=== PATIENT | male | born 1935 | race Caucasian/White ===

== ENCOUNTER 2016-08-22 08:48 | Emergency (ER) | payer MEDICARE ==
[2016-08-22 09:40] VITALS: BP 130/57
--- NOTE | 2016-08-22 09:59 | UC ---
Complaint Male HPI - HPI Summary HPI Summary: HX OF BPH ON AVODART OUT OF HIS MEDICATION REQUESTING A REFILL SINCE HIS PCP IS [place]OWN NO OTHER CONCERNS OR COMPLAINTS TODAY - History of Current Complaint Chief Complaint: UCMedRefill Stated Complaint: MED REFILL Time Seen by Provider: 08/22/16 08:56 Hx Obtained From: Patient Onset/Duration: Gradual Onset, Lasting Weeks - FOR YEARS, Still Present Timing: Constant Severity Initially: Moderate Severity Currently: Moderate Location: None Aggravating Factor(s): Voiding Alleviating Factor(s): Meds Associated Signs And Symptoms: Negative: Diaphoresis, Back Pain, Fever, Hematuria, Dysuria, Constipation, Blood in Stool, Rectal Pain, Appetite, Nausea , Vomiting(# Of Episodes =), Penile Swelling, Penile Discharge - Allergies/Home Medications Allergies/Adverse Reactions: Allergies Allergy/AdvReac Type Severity Reaction Status Date / Time Adhesive Tape Allergy Rash Verified 08/22/16 09:11 Insulin Glargine Allergy Swelling Verified 08/22/16 09:11 [From Lantus] citris fruid Allergy Rash Uncoded 08/22/16 09:11 Home Medications: Home Medications Allopurinol TAB* [Zyloprim 300 MG TAB*] 300 mg PO DAILY 08/22/16 [History Confirmed 08/22/16] Ascorbic Acid TAB* [Vitamin C TAB*] 500 mg PO BID 08/22/16 [History Confirmed 08/22/16] Diclofenac 1.3% PATCH (NF) [Flector 1.3% PATCH (NF)] 1 patch TOPICAL DAILY 08/22 [History Confirmed 08/22/16] Digestive Enzymes [Papaya Enzyme] 1 - 2 tab PO TID 08/22/16 [History Confirmed 08/22/16] Dofetilide CAP* [Tikosyn CAP*] 500 mcg PO BID 08/22/16 [History Confirmed ] Exenatide(NF) [Byetta (NF)] 10 mcg SUBCUT BEDTIME 08/22/16 [History Confirmed ] Furosemide TAB* [Lasix TAB*] 40 mg PO DAILY 08/22/16 [History Confirmed 08/22/16 ] Indomethacin CAP* [Indocin CAP*] 10 mg PO TID 08/22/16 [History Confirmed ] Insulin Aspart [Novolog Flexpen] 8 unit SC TID 08/22/16 [History Confirmed 08/22] Insulin Detemir (NF) [Levemir (NF)] 10 unit SUBCUT DAILY 08/22/16 [History Confirmed 08/22/16] Metoprolol Tartrate TAB* [Lopressor TAB*] 25 mg PO BID 08/22/16 [History Confirmed 08/22/16] Naproxen Sodium [Naproxen Sodium 500 MG TAB] 500 mg PO BID 08/22/16 [History Confirmed 08/22/16] Pravastatin (NF) [Pravachol (NF)] 20 mg PO DAILY 08/22/16 [History Confirmed ] Tamsulosin CAP* [Flomax CAP*] 0.4 mg PO DAILY 08/22/16 [History Confirmed ] Testosterone Cypionate 200 mg IM WEEKLY 08/22/16 [History Confirmed 08/22/16] oxyCODONE TAB* [Roxycodone TAB 5 mg*] 5 mg PO Q8H PRN 08/22/16 [History Confirmed 08/22/16] oxyCODONE/Acetamin 5/325 MG* [Percocet 5/325 TAB*] 1 tab PO Q4H PRN 08/22/16 [ History Confirmed 08/22/16] PMH/Surg Hx/FS Hx/Imm Hx Endocrine History Of: Reports: Diabetes, Thyroid Disease Cardiovascular History Of: Reports: Cardiac Disorders - afib, Hypertension Respiratory History Of: Reports: Asthma - Surgical History Surgical History: Yes Surgery Procedure, Year, and Place: c6, 7,3,4. L3,4. bunionectomy. colon resection - Family History Known Family History: Positive: Diabetes - Social History Alcohol Use: None Substance Use Type: Prescribed Smoking Status (MU): Never Smoked Tobacco Review of Systems Constitutional: Negative Skin: Negative Eyes: Negative ENT: Negative Respiratory: Negative All Other Systems Reviewed And Are Negative: Yes Physical Exam Triage Information Reviewed: Yes Appearance: Well-Appearing, No Pain Distress, Well-Nourished Vital Signs: Initial Vital Signs Temp 98 F 08/22/16 09:29 Pulse 72 08/22/16 09:29 Resp 20 08/22/16 09:29 BP 130/57 08/22/16 09:29 Pulse Ox 97 08/22/16 09:29 Vital Signs Reviewed: Yes Eye Exam: Normal Eyes: Positive: Conjunctiva Clear ENT: Positive: Normal ENT inspection, Hearing grossly normal, Pharynx normal Neck: Positive: Supple Respiratory Exam: Normal Respiratory: Positive: Chest non-tender, Lungs clear, Normal breath sounds Cardiovascular: Positive: RRR, No Murmur, Pulses Normal Abdominal Exam: Normal Neurological Exam: Normal Skin Exam: Normal Complaint Male Course/Dx - Differential Dx/Diagnosis Provider Diagnoses: BPH Discharge - Discharge Plan Condition: Stable Disposition: HOME Prescriptions: Dutasteride [Avodart] 0.5 mg PO DAILY WITH MEAL #30 cap Dutasteride (NF) [Avodart (NF)] 0.5 mg PO DAILY #30 Patient Education Materials: Benign Prostatic Hypertrophy (ED) Referrals: Oseas Peace MD [Primary Care Provider] - 2 Weeks
== END 2016-08-22 10:15 | disposition home or self-care (01) ==
LOC: UCCORT 08:48
DX: N40.0 Benign prostatic hyperplasia without lower urinary tract symptoms (principal); Z76.0 Encounter for issue of repeat prescription; E11.9 Type 2 diabetes mellitus without complications; Z79.4 Long term (current) use of insulin; E07.9 Disorder of thyroid, unspecified; I48.91 Unspecified atrial fibrillation; I10 Essential (primary) hypertension; J45.909 Unspecified asthma, uncomplicated
CPT/HCPCS: 99202; G0463

== ENCOUNTER → 2018-01-15 11:13 | Emergency (ER) | payer MEDICARE ==
[~2018-01-15 11:13] MED LIST: Dexamethasone TAB* 6 MG PO ONE; Lidocaine PATCH 5%* 1 PATCH TRANSDERM ONE; Lidocaine PATCH 5%* 1 PATCH TRANSDERM SCH; Lidocaine Patch REMOVE* 1 NOTE MISC PATCH OFF ONE; NS 0.9% 1000 ML* 1,000 ML IV ONE
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
[2018-01-15 15:15] LABS: ABS Basophils 0 10^3/ul (0-0.2); ABS Eosinophils 0 10^3/ul (0-0.6); ABS Monocytes 0.1 10^3/ul (0-0.8); ABS Neutrophils 4.4 10^3/ul (1.5-7.7); ABS Nucleated RBC 0 10^3/ul; Eosinophil % 0.1 % (0-6); Hematocrit 48 % (42-52); Hemoglobin 15.6 g/dl (14.0-18.0); Lymphocyte % 18.5 % (25-47); Mean Corpuscular HGB Conc 33 g/dl (31-36); Mean Corpuscular Hemoglobin 27 pg (27-31); Mean Corpuscular Volume 82 fL (80-94); Mean Platelet Volume 8.2 um3 (7.4-10.4); Nucleated Red Blood Cells % 0.1; Platelet Count 149 10^3/ul (150-450); Red Blood Count 5.79 10^6/ul (4.00-5.40); Red Cell Distribution Width 20 % (10.5-15); White Blood Count 5.5 10^3/ul (3.5-10.8)
[2018-01-15 15:54] LABS: EGFR Non-African American 66.5 (>60)
--- NOTE | 2018-01-15 16:45 | RAD ---
Indication: Epidural collection, low back pain and history of L4-L5 fusion Sagittal T1, T2, STIR, axial T1 and T2-weighted images of the lumbar spine were obtained. Vertebral bodies appear normal in height. Normal bone marrow signal is noted. The vertebral bodies appear normal in height. Normal bone marrow signal is noted. At L5-S1 disc desiccation is noted. Minimal broad-based protrusion flattens the thecal sac. There appears to be a far left lateral disc broad-based protrusion with left facet hypertrophy which slightly narrows the left foramen at this level. The right foramen is also slightly narrowed although the lesser degree. At the L5 level there is a collection which appears to be extradural and posterior to the thecal sac causing anterior compression of the thecal sac. This measures approximately 1.5 cm x 1.4 cm x 0.7 cm. This is bright on T1-weighted images and slightly decreased in signal on T2-weighted images. This is consistent with an epidural hematoma. No definite spinal stenosis is noted presently. At L4-L5 spondylitic ridge flattens the thecal sac. Facet arthropathy is noted. No foraminal stenosis is noted. At L3-L4 spondylitic ridge flattens the thecal sac. No foraminal stenosis is noted. At L2-L3 spondylitic ridge flattens the thecal sac. No central or foraminal stenosis is noted. There appears to be a multiloculated arachnoid cyst which extends into the posterior vertebral body of L1-L2 measuring approximately 1.9 x 1.5 cm. At T12-L1 no disc protrusion is noted. Degenerative disc disease is noted. IMPRESSION: There is an epidural collection posterior to the thecal sac measuring 1.5 cm in length x 1.4 cm in width x 0.7 cm AP. Multilevel degenerative disc disease is noted. Likely arachnoid cyst is noted at the L1-L2 vertebra.
[2018-01-15 18:09] LABS: Urine Appearance Clear; Urine Blood Negative (Negative); Urine Color Yellow; Urine Ketones Negative (Negative); Urine Protein Negative (Negative); Urine Specific Gravity 1.015 (1.010-1.030); Urine Urobilinogen Negative (Negative)
[2018-01-15 18:54] VITALS: BP 135/88
== END | disposition home or self-care (01) ==
LOC: ED 11:13
DX: I62.1 Nontraumatic extradural hemorrhage (principal); E11.9 Type 2 diabetes mellitus without complications; I48.91 Unspecified atrial fibrillation; I10 Essential (primary) hypertension; Z87.891 Personal history of nicotine dependence
CPT/HCPCS: 36415; 72148; 80053; 81003; 83605; 83735; 84439; 84443; 85025; 86140; 93005; 96360; 99284; A9270-GY

== ENCOUNTER 2018-02-06 09:47 | Emergency (ER) | payer MEDICARE ==
--- OUTSIDE RECORDS SUMMARY | 2018-02-06 11:03 | XMS REPORT ---
:1935 External Reference #:[id number] Author Organization [facility] Address [address] [place] [address] Phone [phone] Care Team Providers Name Role Phone Kang Jeffers MD Primary Care Physician Unavailable Payers Type Date Identification Numbers Payment Provider Subscriber Medicare Primary Policy Number: [id number] Medicare Pete John PayID: [id number] [address] [place] [address] [facility] Part B Policy Number: [id number] [facility] Pete John PayID: [id number] [address] [place] [address] Problems Date Description Provider Status Onset: 12/17/2017 Spinal epidural hematoma Kang Jeffers M.D.,FACP Active Note: post injection Onset: 12/17/2017 Paroxysmal atrial fibrillation Kang Jeffers M.D., FACP Active Onset: 12/17/2017 Type 2 diabetes mellitus Kang Jeffers M.D.,FACP Active Onset: 12/17/2017 Carotid artery stenosis Kang Jeffers M.D.,FACP Active Note: bilat <50% Onset: 12/17/2017 Hypothyroidism Kang Jeffers M.D.,FACP Active Onset: 12/17/2017 Gout Kang Jeffers M.D.,FACP Active Onset: 01/23/2018 Insomnia Kang Jeffers M.D.,FACP Active Family History Date Family Member(s) Problem(s) Comments Father Stroke Father due to Stroke () Father 84 Mother due to Unknown Causes () Mother 73 First Son 40 First Daughter 38 Siblings 2 First Brother 86 Second Brother 79 Maternal Grandfather due to Unknown Causes () Maternal Grandfather 74 Maternal Grandmother due to Pneumonia () Maternal Grandmother 96 Social History Type Date Description Comments Marital Status Lives With 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 Cigarette Use Former Cigarette Smoker ETOH Use Denies alcohol use Smoking Patient is a former smoker Recreational Drug Use Denies Drug Use Exercise Type/Frequency 12/17/2017 Exercises rarely Allergies, Adverse Reactions, Alerts Date Description Reaction Status Severity Comments 12/17/2017 [place] Urticaria active Mild 12/17/2017 Iodine active Severe hypothryroidsim 01/15/2018 Lantus active Medications Medication Date Status Form Strength Qnty SIG Indications Ordering Provider Novolog Flexpen 01/23 Active Solution 100Unit/M 15ml 5-10 units SC Pen-Injec L pre-meal tid, Panfilo Jeffers, t sliding scale M.D.,FACP Alprazolam 01/23 Active Tablets 0.5mg 20tab take 1/2-1 s tablet by Panfilo Jeffers, mouth in M.D.,FACP evening as needed Metoprolol 01/23 Active Tablets 100mg 90tab take 1 tablet Kang Succinate ER 24HR s by mouth once Panfilo Jeffers, a day M.D.,FACP Metoprolol 01/23 Active Tablets 25mg 90tab 1 by mouth Kang Succinate ER 24HR s every day Panfilo Jeffers, with 100 mg M.D.,FACP tab Crestor 12/17 Active Tablets 5mg 45tab take 2 s tablet by Panfilo Jeffers, mouth every M.D.,FACP evening Aspir-81 12/17 Active Tablets 81mg 30tab [address] jacobo every day Panfilo Jeffers M.D.,FACP Flector 12/17 Active Patches 1.3% 10uni apply 1 patch ts to the skin Panfilo Jeffers, two times M.D.,FACP daily as needed Oxycodone HCL 12/17 Active Tablets 5mg 90tab 1 tab by s mouth every 6 JamiShey Jeffers, hours as M.D.,FACP needed pain Tikosyn Active Capsules 500mcg 1 by mouth Unknown /0000 twice a day Synthroid Active Tablets 88mcg 1 by mouth Unknown /0000 every day with 75 mcg Synthroid Active Tablets 75mcg 1 by mouth Unknown /0000 every day with 88 mcg Vitamin B12 Active Tablets 1000mcg 1 by mouth Unknown /0000 ER every day Vitamin D3 Ultra Active Capsules 5000Unit 1 by mouth Unknown Strength /0000 every day x 3 months Zyloprim Active Tablets 300mg one tab daily Unknown Vitamin E Active Capsules 400Unit 1 by mouth Unknown / every day Fish Oil Active Capsules 500mg 180ca 1 by mouth Kang ps twice a day Panfilo Jeffers M.D.,FACP Trulicity Active Solution 0.75mg/0. inject 0.75mg Unknown Pen-Injec 5ML once a week t Vitamin B1 Active Tablets 100mg 1 by mouth Unknown every day Testosterone Active Solution 100mg/ml 1 milliliters Unknown Cypionate /0000 intramuscular q2 weeks code f Diphenoxylate Active Tablets 2.5-0.025 Unknown Hydrochloride/At /0000 mg ropine Sulfate Cyclobenzaprine Active Tablets 5mg take one Unknown HCL /0000 tablet by mouth every 8 hours prn. (pt states he takes 4-5x qd) Dexpak 10 Day 12/17 Hx TBPK 1.5mg pt reports he /2017 (35) is not Panfilo Jeffers, - following Vito,FACP 01/15 Metoprolol Hx Tablets 100mg 1 by mouth Unknown Succinate ER /0000 ER 24HR every day - 01/15 Dexpak 10 Day Hx TBPK 1.5mg pt reports he Unknown /0000 (35) is not - following 12/17 Novolog Hx Solution 100Unit/M 11-12 units Unknown /0000 L times per day - prn 01/15 Metoprolol Hx Tablets 125mg take 1 tablet Unknown Tartrate /0000 by mouth - twice a day 01/23 Medications Administered in Office Medication Date Status Form Strength Qnty SIG Indications Ordering Provider Celestone 3 mg Administered Injection Martinez M and 3mg 018 MD Rojas Celestone 3 mg Administered Injection Martinez M and 3mg 018 MD Rojas Immunizations CPT Code Status Date Vaccine Lot # [id number] Given 12/18/2017 Pneumococcal Conjugate Vaccine 13 Valent For Intramuscular Use 96820 Given 12/17/2017 Influenza Virus Vaccine, Quadrivalent, Split, [id number] Preservative Free Vital Signs Date Vital Result Comment 01/23/2018 Height 67.0 inches 5'7" Weight 222.00 lb Heart Rate 96 /min BP Systolic Sitting 128 mmHg BP Diastolic Sitting 70 mmHg Body Temperature 97.6 F O2 % BldC Oximetry 94 % BMI (Body Mass Index) 34.8 kg/m2 01/15/2018 Height 67.0 inches 5'7" Weight 220.00 lb BP Systolic 122 mmHg BP Diastolic 70 mmHg Pain Level 10 BMI (Body Mass Index) 34.5 kg/m2 12/17/2017 Height 66.25 inches 5'6.25" Weight 209.00 lb Heart Rate 83 /min BP Systolic Sitting 120 mmHg BP Diastolic Sitting 82 mmHg Body Temperature 97.1 F O2 % BldC Oximetry 96 % BMI (Body Mass Index) 33.5 kg/m2 Results Test Date Test Result H/L Range Note Laboratory test finding 01/23/2018 Hemoglobin A1c 7.5 High 5-7 Lipid Profile (Trig/Chol/HDL) 01/15/2018 Triglycerides 218 mg/dL 1 Cholesterol 166 mg/dL 2 HDL Cholesterol 32.3 mg/dL 3 LDL Cholesterol 90 mg/dL 4 Laboratory test finding 01/15/2018 TSH (Thyroid Stim Horm) 1.53 mcIU/mL 0.34-5.60 Comp Metabolic Panel 01/15/2018 Sodium 138 mmol/L 135-145 Potassium 4.4 mmol/L 3.5-5.0 Chloride 101 mmol/L 101-111 Co2 Carbon Dioxide 31 mmol/L 22-32 Anion Gap 6 mmol/L 2-11 Glucose 164 mg/dL High 70-100 Blood Urea Nitrogen 13 mg/dL 6-24 Creatinine 1.03 mg/dL 0.67-1.17 BUN/Creatinine Ratio 12.6 8-20 Calcium 9.3 mg/dL 8.6-10.3 Total Protein 6.2 g/dL Low 6.4-8.9 Albumin 3.7 g/dL 3.2-5.2 Globulin 2.5 g/dL 2-4 Albumin/Globulin Ratio 1.5 1-3 Total Bilirubin 0.70 mg/dL 0.2-1.0 Alkaline Phosphatase 66 U/L 34-104 Alt 13 U/L 7-52 Ast 18 U/L 13-39 Egfr Non- 69.5 >60 Egfr 84.1 >60 5 Laboratory test finding 01/15/2018 Uric Acid 4.7 mg/dL 4.4-7.6 1 Desirable: <150 Borderline High: 150-199 High: 200-499 Very High: >500 2 Desirable: <200 Borderline High: 200-239 High: >239 3 Low: <40 Desirable: 40-60 High: >60 4 Desirable: <100 Near Optimal: 100-129 Borderline High: 130-159 High: 160-189 Very High: >189 5 Because ethnic data is not always readily available, this report includes an eGFR for both -Americans and non- Americans. The National Kidney Disease Education Program (NKDEP) does not endorse the use of the MDRD equation for patients that are not between the ages of 18 and 70, are , have extremes of body size, muscle mass, or nutritional status, or are non- or non-. According to the National Kidney Foundation, irrespective of diagnosis, the stage of the disease is based on the level of kidney function: Stage Description GFR(mL/min/1.73 m(2)) 1 Kidney damage with normal or decreased GFR 90 2 Kidney damage with mild decrease in GFR 60-89 3 Moderate decrease in GFR 30-59 4 Severe decrease in GFR 15-29 5 Kidney failure <15 (or dialysis) Procedures Date CPT Code Description Status 01/15/2018 64465 Inject/Drain Joint/Bursa Major W/O US Completed 12/04/2017 40097 ECHO Transthorasic Realtime 2D W Doppler & Color Flow Completed Hosp Encounters Type Date Location Provider CPT E/M Dx Office Visit 12/17/2017 [facility] Kang Jeffers, 250[address] S06.4x0D 12:00p [facility] [place] Max Padron,FACP Z86.73 E78.5 Z23 Office Visit 12/05/2017 7:[facility]a [facility] [address] G45.9 I10 I48.91 E78.5 Office Visit 12/05/2017 12:51p [facility] [address] R29.810 Hospitalists G45.9 E11.65 Z79.4 Office Visit 12/04/2017 7:00a [facility] [address] G45.9 I10 I48.91 E78.5 Z86.73 Office Visit 12/03/2017 12:50p [facility] [place], [address] G45.9 Assoc,pc Hospitalists MMarcy Z79.4 E11.65 Z86.73 Plan of Care Future Appointment(s):02/26/2018 2:20 pm - Kang Jeffers M.D.,FACP at [facility] [address]02/06/2018 10:00 am - Sheldon Soto LCSW at [facility] - [address]01/23/2018 - Kang Jeffers M.D.,FACPS06.4x0S Epidural hemorrhage without loss of consciousness, sequelaComments:Discussed MRI results. Follow up with Dr. Marvin as planned.E11.65 Type 2 diabetes mellitus with hyperglycemiaComments:You are meeting goal for blood sugar control. Continue current medications as prescribed. A yearlynutrition visit is available to all diabetics. You are on a moderate-potency statin to prevent new or recurrent heart disease, which is common in diabetics.Goals:Goal Hemoglobin A1c is less than 7.0% in ages 18-74 Goal Hemoglobin A1c is between 7.0% and 8.0% in age over 75 Goal Blood pressure is less than 130/85. Cholesterol should be lowered by a high or moderate-dose statin.E78.5 Hyperlipidemia, unspecifiedComments:Your goal LDL is <130. You are meeting this goal. Discussed diet, avoiding trans fats, reducingsaturated fats.Continue statin medication, call me if muscle weakness or pain occurs.Goals :Exercising 30 minutes 5 times a week will help raise HDL (good cholesterol) and lower LDL (bad cholesterol.)E03.9 Hypothyroidism, unspecifiedComments: Thyroid symptoms and blood tests show that current dose of synthroid is appropriate. Continue this dose, take medication on an empty stomach.G47.00 Insomnia, unspecifiedComments:Follow up with Sheldon Soto as discussed. Begin taking Alprazolam 0.5 MG 1/2-1 tab as needed.Referral:Sheldon Soto, PROGRAM CLERK, Clinical/ Social KoxwstF49.0 Paroxysmal atrial fibrillation
--- OUTSIDE RECORDS SUMMARY | 2018-02-06 11:03 | XMS REPORT ---
:1935 External Reference #:[id number] Author Organization [facility] Address [address] [address] Phone [phone] Care Team Providers Name Role Phone Kang Jeffers MD Primary Care Physician Unavailable Payers Type Date Identification Numbers Payment Provider Subscriber Medicare Primary Policy Number: [id number] Medicare Pete John PayID: [id number] [address] [place] [address] [facility] Part B Policy Number: [id number] [facility] Pete John PayID: [id number] [address] [place] [address] Problems Date Description Provider Status Onset: 12/17/2017 Spinal epidural hematoma Kang Jeffers M.D.,FACP Active Note: post injection Onset: 12/17/2017 Paroxysmal atrial fibrillation Kang Jeffers M.D., FACP Active Onset: 12/17/2017 Type 2 diabetes mellitus Kang Jeffers M.D.,FACP Active Onset: 12/17/2017 Carotid artery stenosis Kang Jeffers M.D.,FACP Active Note: bilat <50% Onset: 12/17/2017 Hypothyroidism Kang Jeffers M.D.,FACP Active Onset: 12/17/2017 Gout Kang Jeffers M.D.,FACAdelina Active Family History Date Family Member(s) Problem(s) [...] Date Description Reaction Status Severity Comments 12/17/2017 [place] Urticaria active Mild 12/17/2017 Iodine active Severe hypothryroidsim 01/15/2018 Lantus active Medications Medication Date Status Form Strength Qnty SIG Indications Ordering Provider Crestor 12/17 Active Tablets 5mg 90tab take 04/03-04/01 s tablet by Panfilo Jeffers, mouth every M.D.,FACP evening Aspir-81 12/17 Active Tablets 81mg 30tab [address] jacobo every day Panfilo Jeffers M.D.,FACP Flector 12/17 Active Patches 1.3% 10uni apply 1 patch ts to the skin Panfilo Jeffers, two times M.D.,FACP daily as needed Oxycodone HCL 12/17 Active Tablets 5mg 90tab 1 tab by mouth s every 6 hours Panfilo Jeffers, as needed pain M.D.,FACP Tikosyn Active Capsules 500mcg 1 by mouth twice a day Synthroid Active Tablets 88mcg 1 by mouth every day Synthroid Active Tablets 75mcg 1 by mouth every day Vitamin B12 Active Tablets 1000mcg 1 by mouth ER every day Vitamin D3 Active Capsules 5000Unit 1 by mouth Unknown Ultra every day x 3 months Zyloprim Active Tablets 300mg one tab daily Vitamin E Active Capsules 400Unit 1 by mouth every day Fish Oil Active Capsules 500mg 180ca 1 by mouth ps twice a day Panfilo Jeffers M.D.,FACP Trulicity Active Solution 0.75mg/0. inject 0.75mg Pen-Injec 5ML once a week t Vitamin B1 Active Tablets 100mg 1 by mouth Unknown /0000 every day Testosterone Active Solution 100mg/ml 1 milliliters Unknown Cypionate /0000 intramuscular q2 weeks code f Diphenoxylate Active Tablets 2.5-0.025 Unknown Hydrochloride/A /0000 mg tropine Sulfate Metoprolol Active Tablets 125mg take 1 tablet Unknown Tartrate /0000 by mouth twice a day Dexpak 10 Day 12/17 Hx TBPK 1.5mg pt reports he Kang (35) is not Panfilo Jeffers, - following M.D.,FACP 01/15 Metoprolol Hx Tablets 100mg 1 by mouth Unknown Succinate ER /0000 ER 24HR every day - 01/15 Dexpak 10 Day Hx TBPK 1.5mg pt reports he Unknown /0000 (35) is not - following 12/17 Novolog Hx Solution 100Unit/M 11-12 units Unknown /0000 L times per day - prn 01/15 Medications Administered in Office Medication Date Status Form Strength Qnty SIG Indications Ordering Provider Celestone 3 mg Administered Injection Martinez M and 3mg 018 MD Rojas Celestone 3 mg Administered Injection Martinez M and 3mg 018 MD Rojas Immunizations CPT Code Status Date Vaccine Lot # [id number] Given 12/18/2017 Pneumococcal Conjugate Vaccine 13 Valent For Intramuscular Use 24797 Given 12/17/2017 Influenza Virus Vaccine, Quadrivalent, Split, [id number] Preservative Free Vital Signs Date Vital Result Comment 01/15/2018 Height 67.0 inches 5'7" Weight 220.00 [...] BMI (Body Mass Index) 33.5 kg/m2 Results Description No Information Procedures Date CPT Code Description Status 01/15/2018 93051 Inject/Drain Joint/Bursa Major W/O US Completed 12/04/2017 29165 ECHO Transthorasic Realtime 2D W Doppler & Color Flow Completed Hosp Encounters Type Date Location Provider CPT E/M Dx Office Visit 12/17/2017 [facility] Kang Jeffers, 58[address] S06.4x0D 12:00p [facility] [place] Max Padron,FACP Z86.73 E78.5 Z23 Office Visit 12/05/2017 7:00a [facility] [address] G45.9 I10 I48.91 E78.5 Office Visit 12/05/2017 12:51p [facility] [place] [address] R29.810 Hospitalists G45.9 E11.65 Z79.4 Office Visit 12/04/2017 7:00a [facility] [address] G45.9 I10 I48.91 E78.5 Z86.73 Office Visit 12/03/2017 12[facility] [address] G45.9 Assoc,pc Hospitalrober Padron Z79.4 E11.65 Z86.73 Plan of Care Future Appointment(s):01/23/2018 2:00 pm - Kang Jeffers M.D.,FACP at [facility] [address]01/15/2018 - Martinez Xie, MD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 osteoarthritis of kneeNew Xrays:Knee 3 Views BilateralFollow up:Follow up: As needed
--- OUTSIDE RECORDS SUMMARY | 2018-02-06 11:03 | XMS REPORT ---
:1935 External Reference #:[id number] Author Organization [facility] Address [address] [address] Phone [phone] Care Team Providers Name Role Phone Chris Mercer MD Care Team Information Special Procedures Technologist Unavailable Payers Type Date Identification Numbers Payment Provider Subscriber Medicare Primary Policy Number: [id number] Medicare Juve John Group Name: [facility] [address] PayID: [id number] [place] [address] Problems Description No Information Social History Type Date Description Comments Smoking Patient has never smoked Allergies, Adverse Reactions, Alerts Date Description Reaction Status Severity Comments 01/07/2018 NKDA active Medications Description No Information Vital Signs Date Vital Result Comment 01/07/2018 Body Temperature 97.4 F Weight 221.00 lb Heart Rate 96 /min BP Systolic 122 mmHg L Arm, Sitting BP Diastolic 80 mmHg L Arm, Sitting O2 % BldC Oximetry 68 % Results Test Date Test Result H/L Range Note Laboratory test finding 01/07/2018 Esr-FCMG <pending> CRP (C-Reactive) <pending> Laboratory test finding 01/07/2018 Sed Rate - Esr 12 mm/hr <20 Procedures Description No Information Plan of Care 01/07/2018 - Chris Mercer V, MDM46.26 Osteomyelitis of vertebra, lumbar regionNew Xrays:MRI,Spinal Canal,Lumbar, W/&W/0 ConMRI,Spinal Canal,Lumbar, W/&W/0 ConAllComments:Patient voices understanding of meds and disease processes
[2018-02-06] MEDS ORDERED: Dexamethasone IV* 4 MG/ML 1 ML (4 MG) IM ONE (11:28)
[2018-02-06] MEDS ORDERED: traMADol TAB* 50 MG PO ONE (11:33)
--- NOTE | 2018-02-06 11:46 | ED ---
Back Pain - HPI Summary HPI Summary: Patient is a 83 y/o M w/ c/o "pain all over". CP/SOB denied. Nausea endorsed, vomiting and diarrhea denied. Patient states he wants a toradol injection in his hip. Patient notes Hx of chronic back pain. In the room, patient is rambling nonsensically. On triage, pain is rated 8/10, going over bumps in street is noted to aggravate Sx, oxycodone and toradol injections alleviate Sx, and it is noted that patient took oxycodone MANAGER INTERVENTIONAL. Home medications and allergies are reviewed. Denies any bowel or bladder incontinence or saddle anesthesia. - History of Current Complaint Chief Complaint: EDGeneral Stated Complaint: RX REQUEST Time Seen by Provider: 02/06/18 10:26 Hx Obtained From: Patient Onset/Duration: Lasting Weeks - back pain is reported to be chronic, Still Present Onset/Duration: Started Weeks Ago, Still Present Timing: Constant, Lasting Weeks Back Pain Location: Is Diffuse Severity Currently: Severe - 8/10 Pain Intensity: 8 Pain Scale Used: 0-10 Numeric - 8/10 Aggravating Symptom(s): Other - going over bumps in the street Alleviating Symptom(s): Other - toradol and oxycodone Associated Signs And Symptoms: Positive: Other - NEGATIVE: chest pain, SOB, vomiting, diarrhea POSITIVE: nausea - Allergies/Home Medications Allergies/Adverse Reactions: Allergies Allergy/AdvReac Type Severity Reaction Status Date / Time Adhesive Tape Allergy Rash Verified 02/06/18 10:18 insulin glargine Allergy Swelling Verified 02/06/18 10:18 apixaban [From Eliquis] AdvReac bleed from Verified 02/06/18 10:18 the bones iodine AdvReac "thyroid Verified 02/06/18 10:18 storm" citris fruit Allergy Rash Uncoded 02/06/18 10:18 PMH/Surg Hx/FS Hx/Imm Hx Endocrine/Hematology History: Reports: Hx Diabetes Cardiovascular History: Reports: Hx Atrial Fibrillation, Hx Hypertension Denies: Hx Pacemaker/ICD Sensory History: Reports: Hx Contacts or Glasses Denies: Hx Hearing Aid Opthamlomology History: Reports: Hx Contacts or Glasses Neurological History: Reports: Hx CVA, Other Neuro Impairments/Disorders - states "blood clot in his spine" Psychiatric History: Denies: Hx Eating Disorder, Hx Panic Disorder - Surgical History Surgery Procedure, Year, and Place: L4-L5 spine surgery. C3-C4 fusion. C6-C7 fusion. CARDIAC ABLATION. BOWEL RESECTION. NASAL SEPTUM. HERNIA REPAIRS. CATARACTS. CARPAL TUNNEL. TONSILECTOMY. APPENDECTOMY Infectious Disease History: No Infectious Disease History: Denies: Traveled Outside the [place] in Last 30 Days - Family History Known Family History: Positive: Diabetes - Social History Alcohol Use: None Hx Substance Use: No Substance Use Type: Reports: None Hx Tobacco Use: Yes Smoking Status (MU): Former Smoker Review of Systems Negative: Chest Pain Negative: Shortness Of Breath Positive: Nausea. Negative: Vomiting, Diarrhea All Other Systems Reviewed And Are Negative: Yes Physical Exam - Summary Physical Exam Summary: GENERAL: Patient is a well-developed and nourished male who is lying comfortable in the stretcher. Patient is not in any acute respiratory distress. HEAD AND FACE: Normocephalic EYES: PERRLA, EOMI x 2. EARS: Hearing grossly intact. MOUTH: Oropharynx within normal limits. NECK: Supple, trachea is midline, no adenopathy, no JVD, no carotid bruit. CHEST: Symmetric, no tenderness at palpation LUNGS: Clear to auscultation bilaterally. No wheezing or crackles. CVS: Regular rate and rhythm, S1 and S2 present, no murmurs or gallops appreciated. ABDOMEN: Soft, non-tender. Bowel sounds are normal. No abdominal abnormal pulsations. EXTREMITIES: Full ROM in all major joints, no edema, no cyanosis or clubbing. Back: TTP of the L spine, NV intact NEURO: Alert and oriented x 3. No acute neurological deficits. Speech is normal and follows commands. SKIN: Dry and warm Triage Information Reviewed: Yes Vital Signs On Initial Exam: Initial Vitals Temp Pulse Resp BP Pulse Ox 97.8 F 90 18 103/62 97 02/06/18 10:14 02/06/18 10:14 02/06/18 10:14 02/06/18 10:14 02/06/18 10:14 Vital Signs Reviewed: Yes Diagnostics - Vital Signs Vital Signs Temp Pulse Resp BP Pulse Ox 02/06/18 10:54 98.7 F 86 16 109/72 95 02/06/18 10:14 97.8 F 90 18 103/62 97 - Laboratory Lab Statement: Any lab studies that have been ordered have been reviewed, and results considered in the medical decision making process. Re-Evaluation - Re-Evaluation First Eval Re-Evaluation Time: 11:30 Change: Unchanged Comment: Patient had MRI previously, which revealed There is an epidural collection posterior to the thecal sac measuring 1.5 cm in length x 1.4 cm in width x 0.7 cm AP. Multilevel degenerative disc disease is noted. Likely arachnoid cyst is noted at the L1-L2 vertebra. This was reviewed with patient. Patient will be given Decadron IV 4 mg instead of Toradol. Second Eval Re-Evaluation Time: 11:45 Comment: Patient reports feeling better. Patient is hemodynamically stable and safe for discharge. Strict return precautions given and patient will otherwise follow up with neurosurgeon. Back Pain Course/Dx - Course Course Of Treatment: Patient is a 83 y/o M w/ c/o "pain all over". CP/SOB denied. Nausea endorsed, vomiting and diarrhea denied. Patient states he wants a toradol injection in his hip. Patient notes Hx of chronic back pain. In the room, patient is rambling nonsensically. Physical exam was unremarkable. Patient had MRI previously, which revealed There is an epidural collection posterior to the thecal sac measuring 1.5 cm in length x 1.4 cm in width x 0.7 cm AP. Multilevel degenerative disc disease is noted. Likely arachnoid cyst is noted at the L1-L2 vertebra. This was reviewed with patient, who was advised to follow up with neuro. Patient will be given Decadron IM, 4 mg and tramadol instead of Toradol. Afterwards, patient reports feeling better. Patient is hemodynamically stable and safe for discharge. Strict return precautions given and patient will otherwise follow up with neurosurgeon. Dx of back pain. - Diagnoses Provider Diagnoses: Back pain Discharge - Sign-Out/Discharge Documenting (check all that apply): Patient Departure - discharge - Discharge Plan Condition: Stable Disposition: HOME Patient Education Materials: Back Pain (ED) Referrals: Wally You MD [Medical Doctor] - 3 Days Additional Instructions: Follow up with neurosurgeon in 1-3 days. RETURN TO THE EMERGENCY DEPARTMENT FOR CHANGING OR WORSENING SYMPTOMS. - Billing Disposition and Condition Condition: STABLE Disposition: Home - Attestation Statements Document Initiated by Scribe: Yes Documenting Scribe: Audie Kolenda Provider For Whom Scribe is Documenting (Include Credential): Alecia Calvo MD Scribe Attestation: I, Audie Goddard , scribed for Alecia Calvo MD on 02/06/18 at 1514. Scribe Documentation Reviewed: Yes Provider Attestation: The documentation as recorded by the scribeAudie accurately reflects the service I personally performed and the decisions made by me, Alecia Calvo MD
[2018-02-06 12:10] VITALS: BP 122/72
== END 2018-02-06 12:09 | disposition home or self-care (01) ==
LOC: ED 09:47
DX: M54.9 Dorsalgia, unspecified (principal); G89.29 Other chronic pain; E11.9 Type 2 diabetes mellitus without complications; I48.91 Unspecified atrial fibrillation; I10 Essential (primary) hypertension; Z86.73 Personal history of transient ischemic attack (TIA), and cerebral infarction without residual deficits; Z87.891 Personal history of nicotine dependence; Z79.4 Long term (current) use of insulin
CPT/HCPCS: 96372; 99281; A9270-GY; J1100

== ENCOUNTER 2018-03-18 18:12 | Emergency (ER) | payer MEDICARE ==
--- OUTSIDE RECORDS SUMMARY | 2018-03-18 19:03 | XMS REPORT | Continuity of Care Document ---
:1935 External Reference #:[id number] Author Name Paula Trevino Care Team Providers Name Role Phone Tae Gilman III, MD Primary Care Physician Unavailable Payers Type Date Identification Numbers Payment Provider Subscriber Policy Number: [id number] Medicare Pete John PayID: [id number] [address] [place] [address] Policy Number: [id number] [facility] Pete John PayID: [id number] [address] [place] [address] Advance Directives Description No Information Available Problems Date Description Provider Status Onset: 12/17/2017 [...] 96 Social History Type Date Description Comments Sex Unknown Marital Status Lives With 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 Tobacco Use Start: Unknown End: Former Cigarette Smoker Unknown Smoking Status Reviewed: 03/18/18 Former Cigarette Smoker ETOH Use Denies alcohol use Tobacco Use Start: Unknown End: Patient is a former Unknown smoker Recreational Drug Use Denies Drug Use Exercise Type/Frequency 12/17/2017 Exercises rarely Allergies, Adverse Reactions, Alerts Date Description Reaction Status Severity Comments 12/17/2017 [place] Urticaria Active Mild 12/17/2017 Iodine Active Severe hypothryroidsim 01/15/2018 Lantus Active Medications Medication Date Status Form Strength Qnty SIG Indications Ordering Provider Lorazepam 02/10 Active Tablets 1mg 14tab 1/2-1 tab by s mouth every 8 D. Aury, hours as M.D.,FACP needed anxiety Novolog Flexpen 01/23 Active Solution 100Unit/M 15ml 5-10 units SC Pen-Injec L pre-meal tialexia, Panfilo Jeffers t sliding scale M.D.,FACP Metoprolol 01/23 Active Tablets 100mg 90tab take 1 tablet Kang Succinate ER 24HR s by mouth once Panfilo Jeffers, a day M.D.,FACP Metoprolol 01/23 Active Tablets 25mg 90tab 1 by mouth Kang Succinate ER 24HR s every day Panfilo Jeffers, with 100 mg M.D.,FACP tab Crestor 12/17 Active Tablets 5mg 45tab take 1/2 s tablet by Panfilo Jeffers, mouth every M.D.,FACP evening Aspir-81 12/17 Active Tablets 81mg 30tab [address] jacobo every day Panfilo Jeffers M.D.,FACP Flector 12/17 Active Patches 1.3% 10uni apply 1 patch ts to the skin Panfilo Jeffers, two times M.D.,FACP daily as needed Oxycodone HCL 12/17 Active Tablets 5mg 90tab 1 tab by s mouth every 6 D. Aury, hours as M.D.,FACP needed pain Tikosyn 00 Active Capsules 500mcg 1 by mouth Unknown /0000 twice a day Synthroid Active Tablets 88mcg 1 by mouth Unknown every day with 75 mcg Synthroid Active Tablets 75mcg 1 by mouth Unknown / every day with 88 mcg Vitamin B12 Active Tablets 1000mcg 1 by mouth Unknown /0000 ER every day Vitamin D3 Ultra Active Capsules 5000Unit 1 by mouth Unknown Strength /0000 every day x 3 months Zyloprim Active Tablets 300mg one tab daily Unknown Vitamin E Active Capsules 400Unit 1 by mouth Unknown every day Fish Oil Active Capsules 500mg 180ca 1 by mouth Kang ps twice a day Panfilo Jeffers M.D.,[facility] Trulicity Active Solution 0.75mg/0. inject 0.75mg Unknown Pen-Injec 5ML once a week t Vitamin B1 Active Tablets 100mg 1 by mouth every day Testosterone Active Solution 100mg/ml 1 milliliters Unknown Cypionate / intramuscular q2 weeks code f Diphenoxylate Active Tablets 2.5-0.025 Unknown Hydrochloride/At /0000 mg ropine Sulfate Cyclobenzaprine Active Tablets 5mg take one Unknown HCL /0000 tablet by mouth every 8 hours prn. (pt states he takes 4-5x qd) Alprazolam 01/23 Hx Tablets 0.5mg 20tab take 1/2-1 s tablet by Panfilo Jeffers, - mouth in M.Panfilo,FACP 02/10 evening needed Dexpak 12/17 Hx TBPK 1.5mg pt reports he (37) is not Panfilo Jeffers, - following M.D.,FACP 01/15 Metoprolol Hx Tablets 100mg 1 by mouth Unknown Succinate ER /0000 ER 24HR every day - 01/15 Dexpak Day Hx TBPK 1.5mg pt reports he Unknown / (37) is not - following 12/17 Novolog Hx Solution 100Unit/M 11-12 units Unknown /0000 L times per day - prn 01/15 Metoprolol 00/00 Hx Tablets 125mg take 1 tablet Unknown Tartrate /0000 by mouth - twice a day 01/23 Medications Administered in Office Medication Date Status Form Strength Qnty SIG Indications Ordering Provider Celestone 3 mg Administered Injection Martinez Scott and 3mg 018 MD Rojas Celestone 3 mg Administered Injection Martinez Scott and 3mg 018 MD Rojas Immunizations CPT Code Status Date Vaccine Lot # [id number] Given 12/18/2017 Pneumococcal Conjugate Vaccine 13 Valent For Intramuscular Use 11562 Given 12/17/2017 Influenza Virus Vaccine, Quadrivalent, Split, [id number] Preservative Free Vital Signs Date Vital Result Comment 03/18/2018 4:41pm Height 67.0 inches 5'7" Weight 225.00 lb Heart Rate 80 /min BP Systolic Sitting 128 mmHg BP Diastolic Sitting 80 mmHg O2 % BldC Oximetry 94 % BMI (Body Mass Index) 35.2 kg/m2 01/23/2018 1:42pm Height 67.0 inches 5'7" Weight 222.00 lb Heart Rate 96 /min BP Systolic Sitting 128 mmHg BP Diastolic Sitting 70 mmHg Body Temperature 97.6 F O2 % BldC Oximetry 94 % BMI (Body Mass Index) 34.8 kg/m2 01/15/2018 8:31am Height 67.0 inches 5'7" Weight 220.00 lb BP Systolic 122 mmHg BP Diastolic 70 mmHg Pain Level 10 BMI (Body Mass Index) 34.5 kg/m2 12/17/2017 10:52am Height 66.25 inches 5'6.25" Weight 209.00 lb Heart Rate 83 /min BP Systolic Sitting 120 mmHg BP Diastolic Sitting 82 mmHg Body Temperature 97.1 F O2 % BldC Oximetry 96 % BMI (Body Mass Index) 33.5 kg/m2 Results Test Date Facility Test Result H/L Range Note Laboratory test 01/23/2018 [facility] Hemoglobin A1c 7.5 High 5-7 finding Lipid Profile 01/15/2018 [facility] Triglycerides 218 mg/dL 1 (Trig/Chol/HDL) [address] [place] [address] [phone] Cholesterol 166 mg/dL 2 HDL Cholesterol 32.3 mg/dL 3 LDL Cholesterol 90 mg/dL 4 Laboratory test 01/15/2018 [facility] TSH (Thyroid 1.53 mcIU/mL N 0.34-5.[address] Stim Horm) [place] [address] [phone] Comp Metabolic 01/15/2018 [facility] Sodium 138 mmol/L N 135- 145 Panel [address] [place] [address] [phone] Potassium 4.4 mmol/L N 3.5-5.0 Chloride 101 mmol/L N 101-111 Co2 Carbon Dioxide 31 mmol/L N 22-32 Anion Gap 6 mmol/L N 2-11 Glucose 164 mg/dL High 70-100 Blood Urea Nitrogen 13 mg/dL N 6-24 Creatinine 1.03 mg/dL N 0.67-1.17 BUN/Creatinine Ratio 12.6 N 8-20 Calcium 9.3 mg/dL N 8.6-10.3 Total Protein 6.2 g/dL Low 6.4-8.9 Albumin 3.7 g/dL N 3.2-5.2 Globulin 2.5 g/dL N 2-4 Albumin/Globulin Ratio 1.5 N 1-3 Total Bilirubin 0.70 mg/dL N 0.2-1.0 Alkaline Phosphatase 66 U/L N 34-104 Alt 13 U/L N 7-52 Ast 18 U/L N 13-39 Egfr Non- 69.5 >60 Egfr 84.1 >60 5 Laboratory test 01/15/2018 [facility] Uric Acid 4.7 mg/dL N 4.4-7.6 finding [address] [place] [address] [phone] 1 Desirable: <150 Borderline High: 150-199 High: [...] Kidney failure <15 (or dialysis) Procedures Date Code Description Status 01/15/2018 80726 Inject/Drain Joint/Bursa Major W/O US Completed 12/04/2017 37728 ECHO Transthorasic Realtime 2D W Doppler & Color Flow Hosp Completed Encounters Type Date Location Provider Dx Diagnosis Office Visit 01/23/2018 [facility] Nicol Whittaker S06.4x0S Epidural 2:00p Daya Jeffers M.D.,FACP hemorrhage without Rd loss of consciousness, sequela E11.65 Type 2 diabetes mellitus with hyperglycemia E78.5 Hyperlipidemia, unspecified E03.9 Hypothyroidism, unspecified G47.00 Insomnia, unspecified I48.0 Paroxysmal atrial fibrillation Office Visit 01/15/2018 [facility] M 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 AT [place] knee Office Visit 12/17/2017 [facility] Nicol Whittaker S06.4x0D Epidural hemorrhage 12:00p Daya Jeffers, w/o loss of Rd M.D.,FACP consciousness, subs encntr Z86.73 Prsnl hx of TIA (TIA), and cereb infrc w/o resid deficits E78.5 Hyperlipidemia, unspecified Z23 Encounter for immunization Office Visit 12/05/2017 [facility] Arambula, G45.9 Transient 7:00a Clinic cerebral ischemic attack, unspecified I10 Essential (primary) hypertension I48.91 Unspecified atrial fibrillation E78.5 Hyperlipidemia, unspecified Office Visit 12/05/2017 12:51p [facility] Deven Magana, R29.810 Facial weakness Assoc,[facility] Hospitalists G45.9 Transient cerebral ischemic attack, unspecified E11.65 Type 2 diabetes mellitus with hyperglycemia Z79.4 alf (current) use of insulin Office Visit 12/04/2017 [facility] Fahed Saada, G45.9 Transient 7:00a Clinic cerebral ischemic attack, unspecified I10 Essential (primary) hypertension I48.91 Unspecified atrial fibrillation E78.5 Hyperlipidemia, unspecified Z86.73 Prsnl hx of TIA (TIA), and cereb infrc w/o resid deficits Office Visit 12/03/2017 [facility] Travis Becerra G45.9 Transient 12:50p Assoc,ella HERNANDEZ M.D. cerebral Hospitalists ischemic attack, unspecified Z79.4 alf (current) use of insulin E11.65 Type 2 diabetes mellitus with hyperglycemia Z86.73 Prsnl hx of TIA (TIA), and cereb infrc w/o resid deficits Plan of Treatment Future Appointment(s):03/26/2019 9:20 am - Tae Gilman M.D. at [facility] Internal Medicine - [place]27/29/2019 2:00 pm - Wally You MD at [facility]03/18/2018 - Tae Gilman M.D.S06.4x0S Epidural hemorrhage without loss of consciousness, sequelaComments:Epidural clot after a back injection in October; follows with neurosurgery, but no surgical intervention required. (+) diffuse pain sx ? following that event, although pt noted back pain sx prior to the injection. Pt requests pain clinic referral for Rx. He will try to get his neurosurgical records for liaeyjA76.29 Other chronic painComments:? increased pain sx after the epidural injection; etiology unclear. Outside records requested for reviewReferral:Pain Clinic, Pain/Clinic/CTR
--- NOTE | 2018-03-18 19:35 | ED ---
Complex/Multi-Sys Presentation - HPI Summary HPI Summary: An 83 y/o M presents to ED with c/o acute on chronic lower back pain, worsening recently. Pt states he had a botched epidural earlier this year that caused a hematoma and has had pain ever since. He was last seen in the ED on 02/06/18. He is requesting IV Toradol for the pain. PCP is Dr. Tae Gilman. He denies weakness and numbness in LE; is able to ambulate per usual; and has had no bowel or urinary changes. Pt takes multiple daily medications, which we discussed. - History Of Current Complaint Chief Complaint: EDPrescriptionNeeded Time Seen by Provider: 03/18/18 19:27 Hx Obtained From: Patient Onset/Duration: Still Present Timing: Constant Severity Currently: Moderate - rated 8 ut of 10 Severity Initially: Moderate Associated Signs And Symptoms: Positive: Other - neg: difficulty ambulating; urinary and bowel changes;. Negative: Weakness - LE - Allergies/Home Medications Allergies/Adverse Reactions: Allergies Allergy/AdvReac Type Severity Reaction Status Date / Time Adhesive Tape Allergy Rash Verified 02/06/18 10:18 insulin glargine Allergy Swelling Verified 02/06/18 10:18 apixaban [From Eliquis] AdvReac bleed from Verified 02/06/18 10:18 the bones iodine AdvReac "thyroid Verified 02/06/18 10:18 storm" citris fruit Allergy Rash Uncoded 02/06/18 10:18 PMH/Surg Hx/FS Hx/Imm Hx Previously Healthy: No Endocrine/Hematology History: Reports: Hx Diabetes Cardiovascular History: Reports: Hx Atrial Fibrillation, Hx Hypertension Denies: Hx Pacemaker/ICD Sensory History: Reports: Hx Contacts or Glasses Denies: Hx Hearing Aid Opthamlomology History: Reports: Hx Contacts or Glasses Neurological History: Reports: Hx CVA, Other Neuro Impairments/Disorders - states "blood clot in his spine" Psychiatric History: Denies: Hx Eating Disorder, Hx Panic Disorder - Surgical History Surgery Procedure, Year, and Place: L4-L5 spine surgery. C3-C4 fusion. C6-C7 fusion. CARDIAC ABLATION. BOWEL RESECTION. NASAL SEPTUM. HERNIA REPAIRS. CATARACTS. CARPAL TUNNEL. TONSILECTOMY. APPENDECTOMY Infectious Disease History: No Infectious Disease History: Denies: Traveled Outside the [place] in Last 30 Days - Family History Known Family History: Positive: Diabetes - Social History Occupation: Retired Lives: With Family Alcohol Use: None Hx Substance Use: No Substance Use Type: Reports: None Hx Tobacco Use: Yes Smoking Status (MU): Former Smoker Review of Systems Negative: incontinence Positive: Other - pos: back pain Negative: Weakness - LE, Numbness - LE All Other Systems Reviewed And Are Negative: Yes Physical Exam - Summary Physical Exam Summary: Appearance: Well appearing, no pain distress Skin: warm, dry, reflects adequate perfusion; high lumbar surgical scar present Head/face: normal Eyes: EOMI, ASHA ENT: mucous membranes moist Neck: supple, non-tender Respiratory: CTA, breath sounds present Cardiovascular: RRR, pulses symmetrical Abdomen: non-tender, soft Bowel Sounds: present Musculoskeletal: normal, strength/ROM intact Neuro: normal, sensory motor intact, A&Ox3 Triage Information Reviewed: Yes Vital Signs On Initial Exam: Initial Vitals Temp Pulse Resp BP Pulse Ox 97.6 F 86 18 159/79 96 03/18/18 18:14 03/18/18 18:14 03/18/18 18:14 03/18/18 18:14 03/18/18 18:14 Vital Signs Reviewed: Yes Diagnostics - Vital Signs Vital Signs Temp Pulse Resp BP Pulse Ox 03/18/18 18:14 97.6 F 86 18 159/79 96 - Laboratory Lab Statement: Any lab studies that have been ordered have been reviewed, and results considered in the medical decision making process. Complex Multi-Symp Course/Dx Course Of Treatment: Nurses note reviewed. Patient with history of chronic pain presents requesting Toradol. He has normal renal function and was given a dose of IV Toradol. He is comfortable and is discharged on same. He will follow up closely with his primary care physician. - Diagnoses Provider Diagnoses: Chronic back pain Discharge - Sign-Out/Discharge Documenting (check all that apply): Patient Departure - DC - Discharge Plan Condition: Stable Disposition: HOME Prescriptions: Ketorolac TAB * [Toradol TAB *] 10 mg PO Q6H PRN #12 tab PRN Reason: Pain Patient Education Materials: Chronic Back Pain (DC) Referrals: Tae Gilman MD [Medical Doctor] - Additional Instructions: Fluids. Have your primary care doctor refill any further pain medication. You will need to have uric kidney function monitored if she continued to be on anti- inflammatory medications. Return if worse, new symptoms or other concerns. - Billing Disposition and Condition Condition: STABLE Disposition: Home - Attestation Statements Document Initiated by Alessandro: Yes Documenting Scribe: Gary Roberts Provider For Whom Edwinibcarolin is Documenting (Include Credential): Dr. Edward Delong MD Scribe Attestation: Gary Romero, scribed for Dr. Edward Delong MD on 03/18/18 at 2340. Scribe Documentation Reviewed: Yes Provider Attestation: The documentation as recorded by the Gary ventura accurately reflects the service I personally performed and the decisions made by me, Dr. Edward Delong MD Status of Scribe Document: Viewed
[2018-03-18] MEDS ORDERED: Ketorolac INJ* 30 MG/ML 1 ML VIAL IV PUSH ONE (19:37)
[2018-03-18 20:19] VITALS: BP 145/66
== END 2018-03-18 20:15 | disposition home or self-care (01) ==
LOC: ED 18:12
DX: M54.5 Low back pain (principal); G89.29 Other chronic pain; E11.9 Type 2 diabetes mellitus without complications; I48.91 Unspecified atrial fibrillation; Z79.01 Long term (current) use of anticoagulants; I10 Essential (primary) hypertension; Z86.73 Personal history of transient ischemic attack (TIA), and cerebral infarction without residual deficits; Z87.891 Personal history of nicotine dependence; Z79.4 Long term (current) use of insulin
CPT/HCPCS: 96374; 99282; J1885

== ENCOUNTER 2018-04-28 03:51 | Emergency (ER) | payer MEDICARE ==
--- OUTSIDE RECORDS SUMMARY | 2018-04-28 04:06 | XMS REPORT | Continuity of Care Document ---
:1935 External Reference #:[id number] Author Name Cindy Hill Care Team Providers Name Role Phone Tae Gilman III, MD Primary Care Physician Unavailable Payers Type Date Identification Numbers Payment Provider Subscriber Policy Number: [id number] Medicare Pete John PayID: [id number] [address] [place] [address] Policy Number: [id number] [facility] Pete John PayID: [id number] [address] [place] [address] Advance Directives Description No Information Available Problems [...] Date Description Reaction Status Severity Comments 12/17/2017 [place] Urticaria Active Mild 12/17/2017 Iodine Active Severe hypothryroidsim 01/15/2018 Lantus Active Medications Medication Date Status Form Strength Qnty SIG Indications Ordering Provider Lorazepam 02/10 Active Tablets 1mg 14tab 1/2-1 tab by s mouth every 8 D. Aury, hours as M.D.,FACP needed anxiety Novolog Flexpen 01/23 Active Solution 100Unit/M 15ml 5-10 units SC Pen-Injec L pre-meal tiPanfilo hale, t sliding scale M.D.,FACP Metoprolol 01/23 Active Tablets 100mg 90tab take 1 tablet Kang Succinate ER 24HR s by mouth once Panfilo Jeffers, a day M.D.,FACP Metoprolol 01/23 Active Tablets 25mg 90tab 1 by mouth Kang Succinate ER 24HR s every day Panfilo Jeffers, with 100 mg M.D.,FACP tab Crestor 12/17 Active Tablets 5mg 45tab take /2 s tablet by Panfilo Jeffers, mouth every [...] Active Tablets 75mcg 1 by mouth Unknown every day with 88 mcg Vitamin B12 Active Tablets 1000mcg 1 by mouth Unknown /0000 ER every day Vitamin D3 Ultra Active Capsules 5000Unit 1 by mouth Unknown Strength / every day x 3 months Zyloprim Active Tablets 300mg one tab daily Vitamin E Active Capsules 400Unit 1 by mouth Unknown every day Fish Oil Active Capsules 500mg 180ca 1 by mouth Kang ps twice a day Panfilo Jeffers M.D.,[facility] Trulicity Active Solution 0.75mg/0. inject 0.75mg Pen-Injec 5ML once a week t Vitamin B1 Active Tablets 100mg 1 by mouth every day Testosterone Active Solution 100mg/ml 1 milliliters Unknown Cypionate intramuscular q2 weeks code f Diphenoxylate Active Tablets 2.5-0.025 Unknown Hydrochloride/At /0000 mg ropine Sulfate Cyclobenzaprine Active Tablets 5mg take one Unknown HCL 0000 tablet by mouth every 8 hours prn. (pt states he takes 4-5x qd) Alprazolam 01/23 Hx Tablets 0.5mg 20tab take 1/2-1 s tablet by Panfilo Jeffers, - mouth in M.DShey,FACP 02/10 evening needed Dexpak 10 12/17 Hx TBPK 1.5mg pt reports he [...] CPT Code Status Date Vaccine Lot # [id number] Given 12/18/2017 Pneumococcal Conjugate Vaccine 13 Valent For Intramuscular Use 26883 Given 12/17/2017 Influenza Virus Vaccine, Quadrivalent, Split, [...] Result H/L Range Note Laboratory test 01/23/2018 [facility] Hemoglobin A1c 7.5 High 5-7 finding Lipid Profile 01/15/2018 [facility] Triglycerides 218 mg/dL 1 (Trig/Chol/HDL) [address] [place] [address] [phone] Cholesterol 166 mg/dL 2 HDL Cholesterol 32.3 mg/dL 3 LDL Cholesterol 90 mg/dL 4 Laboratory test 01/15/2018 [facility] TSH (Thyroid 1.53 mcIU/mL N 0.34-5.[address] Stim Horm) [place] [address] [phone] Comp Metabolic 01/15/2018 [facility] Sodium 138 mmol/L N 135- 145 Panel [address] [place] [address] [phone] Potassium 4.4 mmol/L N 3.5-5.0 Chloride 101 [...] Egfr 84.1 >60 5 Laboratory test 01/15/2018 [facility] Uric Acid 4.7 mg/dL N 4.4-7.6 finding [address] [place] [address] [phone] 1 Desirable: <150 Borderline High: 150-199 High: [...] dialysis) Procedures Date Code Description Status 01/15/2018 41719 Inject/Drain Joint/Bursa Major W/O US Completed 12/04/2017 11569 ECHO Transthorasic Realtime 2D W Doppler & Color Flow Hosp Completed Encounters Type Date Location Provider Dx Diagnosis Office Visit 03/18/2018 [facility] Internal Tae Smith S06.4x0S Epidural 4:00p Daya Gilman M.D. hemorrhage without [place] loss of consciousness, sequela G89.29 Other chronic pain E11.42 Type 2 diabetes mellitus with diabetic polyneuropathy E03.9 Hypothyroidism, unspecified E78.5 Hyperlipidemia, unspecified Office Visit 01/23/2018 [facility] Internal Kang Whittaker S06.4x0S Epidural hemorrhage 2:00p Daya Jeffers M.D.,FACP without loss of [address] consciousness, sequela E11.65 Type 2 diabetes mellitus with hyperglycemia E78.5 Hyperlipidemia, unspecified E03.9 Hypothyroidism, unspecified G47.00 Insomnia, unspecified I48.0 Paroxysmal atrial fibrillation Office Visit 01/15/2018 [facility] M 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 Office Visit 12/17/2017 [facility] Internal Kang Whittaker S06.4x0D Epidural hemorrhage 12:00p Medicine Eliezer Jeffers, w/o loss of Max Padron,FACP consciousness, subs encntr Z86.73 Prsnl hx of TIA (TIA), and cereb infrc w/o resid deficits E78.5 Hyperlipidemia, unspecified Z23 Encounter for immunization Office Visit 12/05/2017 [facility] Arambula, G45.9 Transient 7:00a Clinic cerebral ischemic attack, unspecified I10 Essential (primary) hypertension I48.91 Unspecified atrial fibrillation E78.5 Hyperlipidemia, unspecified Office Visit 12/05/2017 12:51p [facility] Deven Magana, R29.810 Facial weakness Assoc,ella COLÓN Hospitalists G45.9 Transient cerebral ischemic attack, unspecified E11.65 Type 2 diabetes mellitus with hyperglycemia Z79.4 intermediate (current) use of insulin Office Visit 12/04/2017 [facility] Williams Arambula, G45.9 Transient 7:00a Clinic cerebral ischemic attack, unspecified I10 Essential (primary) hypertension I48.91 Unspecified atrial fibrillation E78.5 Hyperlipidemia, unspecified Z86.73 Prsnl hx of TIA (TIA), and cereb infrc w/o resid deficits Office Visit 12/03/2017 [facility] Travis Kevincony G45.9 Transient 12:50p Assocella II, M.D. cerebral Hospitalists ischemic attack, unspecified Z79.4 intermediate (current) use of insulin E11.65 Type 2 diabetes mellitus with hyperglycemia Z86.73 Prsnl hx of TIA (TIA), and cereb infrc w/o resid deficits Plan of Treatment Future Appointment(s):03/26/2019 9:20 am - Tae Gilman M.D. at [facility] Internal Medicine - Fmighxdgj84/29/2019 2:00 pm - Wally You MD at [facility]/18/2018 - Tae Gilman M.D.S06.4x0S Epidural hemorrhage without loss of consciousness, sequelaComments:Epidural clot after a back injection in October; follows with neurosurgery, but no surgical intervention required. (+) diffuse pain sx ? following that event, although pt noted back pain sx prior to the injection. Pt requests pain clinic referral for Rx. He will try to get his neurosurgical records for pqmvmmZ87.29 Other chronic painComments:? increased more general pain sx after the epidural injection; etiology unclear. Outside records requested for reviewReferral:Pain Clinic, Pain/Clinic/CTRE11.42 Type 2 diabetes mellitus with diabetic polyneuropathyComments:Follows with duyjmeaybH80.9 Hypothyroidism, unspecifiedComments:On Rx. TSH normal in OctE78.5 Hyperlipidemia, unspecifiedComments:On Rx; cholesterol 166, LDL 90 in Oct
[2018-04-28] MEDS ORDERED: Ketorolac INJ* 30 MG/ML 1 ML VIAL IV PUSH ONE (04:16)
[2018-04-28] MEDS ORDERED: DOXYcycline CAP(*) 100 MG PO ONE (04:17)
--- NOTE | 2018-04-28 04:22 | ED ---
Complex/Multi-Sys Presentation - HPI Summary HPI Summary: This patient is an 83 year old M presenting to ED with a chief complaint of chronic back pain due to a stenosis in his spine. He also has a callused sore on his buttock and has put topical abx on it. He reports that he will see Dr. You for surgery. The patient rates the pain 10/10 in severity. Symptoms aggravated by nothing. Symptoms alleviated by nothing. Patient reports SINGLETON and neck pain. - History Of Current Complaint Chief Complaint: EDBackInjuryPain Time Seen by Provider: 04/28/18 04:06 Hx Obtained From: Patient Onset/Duration: Sudden Onset, Still Present Timing: Constant Severity Currently: Severe - 10/10 Severity Initially: Severe Location: Pain At: - back pain, neck pain, and SINGLETON Aggravating Factor(s): nothing Alleviating Factor(s): nothing Associated Signs And Symptoms: Positive: Headache, Back Pain, Other - neck pain , callused sore on his buttocks - Allergies/Home Medications Allergies/Adverse Reactions: Allergies Allergy/AdvReac Type Severity Reaction Status Date / Time Adhesive Tape Allergy Rash Verified 04/03/18 12:38 insulin glargine Allergy Swelling Verified 04/03/18 12:38 apixaban [From Eliquis] AdvReac bleed from Verified 04/03/18 12:38 the bones iodine AdvReac "thyroid Verified 04/03/18 12:38 storm" citris fruit Allergy Rash Uncoded 04/03/18 12:38 PMH/Surg Hx/FS Hx/Imm Hx Endocrine/Hematology History: Reports: Hx Diabetes Cardiovascular History: Reports: Hx Atrial Fibrillation, Hx Hypertension Denies: Hx Pacemaker/ICD Sensory History: Reports: Hx Contacts or Glasses Denies: Hx Hearing Aid Opthamlomology History: Reports: Hx Contacts or Glasses Neurological History: Reports: Hx CVA, Other Neuro Impairments/Disorders - states "blood clot in his spine" Psychiatric History: Denies: Hx Eating Disorder, Hx Panic Disorder - Surgical History Surgery Procedure, Year, and Place: L4-L5 spine surgery. C3-C4 fusion. C6-C7 fusion. CARDIAC ABLATION. BOWEL RESECTION. NASAL SEPTUM. HERNIA REPAIRS. CATARACTS. CARPAL TUNNEL. TONSILECTOMY. APPENDECTOMY Infectious Disease History: No Infectious Disease History: Denies: Traveled Outside the [place] in Last 30 Days - Family History Known Family History: Positive: Diabetes - Social History Alcohol Use: None Hx Substance Use: No Substance Use Type: Reports: None Hx Tobacco Use: Yes Smoking Status (MU): Former Smoker Review of Systems Positive: Other - neck pain Positive: Other - back pain Positive: Other - callused sore on his buttock Positive: Headache All Other Systems Reviewed And Are Negative: Yes Physical Exam - Summary Physical Exam Summary: Appearance: Well-appearing, Well-nourished, lying in bed comfortable Skin: Warm, dry, no obvious rash. There is a small area of cellulitis of the left medial buttock, without abscess. Eyes: sclera anicteric, no conjunctival pallor ENT: mucous membranes moist Neck: deferred Respiratory: No signs of respiratory distress Cardiovascular: Appears well perfused, pulses are nml Abdomen: deferred Musculoskeletal: Moving all 4 extremities without obvious discomfort. On the L buttock is an area of superficial cellulitis without abscess. Neurological: Awake and alert, mentation is normal, speech is fluent and appropriate Psychiatric: affect is normal, does not appear anxious or depressed Triage Information Reviewed: Yes Vital Signs On Initial Exam: Initial Vitals Temp Pulse Resp BP Pulse Ox 97.8 F 86 18 127/91 98 04/28/18 03:56 04/28/18 03:56 04/28/18 03:56 04/28/18 03:56 04/28/18 03:56 Vital Signs Reviewed: Yes Diagnostics - Vital Signs Vital Signs Temp Pulse Resp BP Pulse Ox 04/28/18 03:56 97.8 F 86 18 127/91 98 - Laboratory Result Diagrams: 04/28/18 04:28 04/28/18 04:28 Lab Statement: Any lab studies that have been ordered have been reviewed, and results considered in the medical decision making process. Complex Multi-Symp Course/Dx Assessment/Plan: This patient is an 83 year old M presenting to ED with a chief complaint of chronic back pain due to a stenosis in his spine. He also has a callused sore on his buttock and has put topical abx on it. This patient will be discharged. Patient understands and is agreeable with this plan. - Diagnoses Provider Diagnoses: Cellulitis, Lumbar spinal stenosis Discharge - Sign-Out/Discharge Documenting (check all that apply): Patient Departure - discharge Patient Received Moderate/Deep Sedation with Procedure: No - Discharge Plan Condition: Good Disposition: HOME Prescriptions: DOXYcycline CAP(*) [DOXYcycline 100MG CAP(*)] 100 mg PO BID #28 cap Ketorolac TAB * [Toradol TAB *] 10 mg PO Q6H PRN #30 tab PRN Reason: Pain Patient Education Materials: Cellulitis (ED), Lumbar Spinal Stenosis (ED) Referrals: [facility] [Outside] - 1 Week Additional Instructions: The area of inflammation on the left buttock appears to be superficially infected. The doxycycline should take care of that. - Billing Disposition and Condition Condition: GOOD Disposition: Home - Attestation Statements Document Initiated by Alessandro: Yes Documenting Scribe: Vinny Moreno Provider For Whom Alessandro is Documenting (Include Credential): Matt Montemayor MD Scribe Attestation: Vinny Romero, scribed for Matt Montemayor MD on 04/30/18 at 0215. Scribe Documentation Reviewed: Yes Provider Attestation: The documentation as recorded by the Vinny ventura accurately reflects the service I personally performed and the decisions made by Matt jarquin MD Status of Scribe Document: Viewed
[2018-04-28 04:45] LABS: ABS Basophils 0 10^3/ul (0-0.2); ABS Eosinophils 0.1 10^3/ul (0-0.6); ABS Monocytes 0.6 10^3/ul (0-0.8); ABS Neutrophils 4.4 10^3/ul (1.5-7.7); ABS Nucleated RBC 0 10^3/ul; Hematocrit 48 % (42-52); Hemoglobin 15.3 g/dl (14.0-18.0); Lymphocyte % 28.5 %; Mean Corpuscular HGB Conc 32 g/dl (31-36); Mean Corpuscular Hemoglobin 27 pg (27-31); Mean Corpuscular Volume 85 fL (80-94); Mean Platelet Volume 8.2 fL (7.4-10.4); Nucleated Red Blood Cells % 0.1; Platelet Count 178 10^3/ul (150-450); Red Blood Count 5.61 10^6/ul (4.00-5.40); Red Cell Distribution Width 18 % (10.5-15); White Blood Count 7.1 10^3/ul (3.5-10.8)
[2018-04-28 04:47] VITALS: BP 129/62
[2018-04-28 05:00] LABS: EGFR Non-African American 67.8 (>60); Potassium 4.2 mmol/L (3.5-5.0)
[2018-04-28 05:29] LABS: TSH (Thyroid Stimulating Horm) 0.66 mcIU/mL (0.34-5.60)
== END 2018-04-28 04:46 | disposition home or self-care (01) ==
LOC: ED 03:51
DX: M48.061 Spinal stenosis, lumbar region without neurogenic claudication (principal); L03.317 Cellulitis of buttock; E11.9 Type 2 diabetes mellitus without complications; I48.91 Unspecified atrial fibrillation; I10 Essential (primary) hypertension; Z87.891 Personal history of nicotine dependence
CPT/HCPCS: 36415; 80048; 84443; 85025; 96374; 99282; A9270-GY; J1885

== ENCOUNTER 2018-05-22 12:54 | Emergency (ER) | payer MEDICARE ==
--- OUTSIDE RECORDS SUMMARY | 2018-05-22 13:43 | XMS REPORT | Continuity of Care Document ---
:1935 External Reference #:[id number] Author Name Evette Terrell Care Team Providers Name Role Phone Patient's Choice Primary Care Physician Unavailable Payers Type Date Identification Numbers Payment Provider Subscriber Policy Number: [id number] Medicare Pete John PayID: [id number] [address] [place] [address] Policy Number: [id number] [facility] Pete John PayID: [id number] [address] [place] [address] Advance Directives Description No Information Available Problems Date Description Provider Status Onset: 12/17/2017 Spinal epidural hematoma Kang Jeffers M.D.,FACP Active Note: post injection Onset: 12/17/2017 Paroxysmal atrial fibrillation Kang Jeffers M.D., FACAdelina Active Onset: 12/17/2017 Type 2 diabetes mellitus Kang Jeffers M.D.,FACP Active Onset: 12/17/2017 Carotid artery stenosis Kang Jeffers M.D.,FACP Active Note: bilat <50% Onset: 12/17/2017 Hypothyroidism Kang Jeffers M.D.,FACP Active Onset: 12/17/2017 Gout Kang Jeffers M.D.,FACP Active Onset: 01/23/2018 Insomnia Kang Jeffers M.D.,FACAdelina Active Family History Date [...] Former Cigarette Smoker Unknown Smoking Status Reviewed: 04/28/18 Former Cigarette Smoker ETOH Use Denies alcohol use Tobacco Use Start: Unknown End: Patient is a former Unknown smoker Recreational Drug Use Denies Drug Use Exercise Type/Frequency 12/17/2017 Exercises rarely Allergies, Adverse Reactions, Alerts Date Description Reaction Status Severity Comments 12/17/2017 [place] Urticaria Active Mild 12/17/2017 Iodine Active Severe hypothryroidsim 01/15/2018 Lantus Active Medications Medication Date Status Form Strength Qnty SIG Indications Ordering Provider Lorazepam 02/10 Active Tablets 1mg 14tab 1/2-1 tab by s mouth every 8 D. Aury, hours as M.D.,FACP needed anxiety Novolog Flexpen 01/23 Active Solution 100Unit/M 15ml 5-10 units SC Pen-Injec L pre-meal tid, Panfilo Jeffers, t sliding scale M.D.,FACP Metoprolol 01/23 Active Tablets 100mg 90tab take 1 tablet Kang Succinate ER 24HR s by mouth once Panfilo Jeffers, a day M.D.,FACP Metoprolol 01/23 Active Tablets 25mg 90tab 1 by mouth Kang Succinate ER 24HR s every day Panfilo Jeffers, with 100 mg M.D.,FACP tab Crestor 12/17 Active Tablets 5mg 45tab take 04/01 s tablet by Panfilo Jeffers, mouth every [...] Aury, hours as M.D.,FACP needed pain Tikosyn Active [...] in M.DShey,FACP 02/10 evening needed Dexpak 10 Day 12/17 Hx TBPK 1.5mg [...] CPT Code Status Date Vaccine Lot # [id number] Given 12/18/2017 Pneumococcal Conjugate Vaccine 13 Valent For Intramuscular Use 79742 Given 12/17/2017 Influenza Virus Vaccine, Quadrivalent, Split, [id number] Preservative Free Vital Signs Date Vital Result Comment 04/28/2018 9:35am Height 67.0 inches 5'7" Weight 225.00 lb wheelchair BP Systolic Sitting 126 mmHg BP Diastolic Sitting 82 mmHg Pain Level 4 BMI (Body Mass Index) 35.2 kg/m2 03/18/2018 4:41pm Height 67.0 inches 5'7" Weight [...] Result H/L Range Note Laboratory test 01/23/2018 [facility] Hemoglobin A1c 7.5 High 5-7 finding Lipid Profile 01/15/2018 [facility] Triglycerides 218 mg/dL 1 (Trig/Chol/HDL) [address] [place] [address] [phone] Cholesterol 166 mg/dL 2 HDL Cholesterol 32.3 mg/dL 3 LDL Cholesterol 90 mg/dL 4 Laboratory test 01/15/2018 [facility] TSH (Thyroid 1.53 mcIU/mL N 0.34-5.[address] Stim Horm) [place] [address] [phone] Comp Metabolic 01/15/2018 [facility] Sodium 138 mmol/L N 135- [address] [place] [address] [phone] Potassium 4.4 mmol/L N 3.5-5.0 Chloride 101 [...] Egfr 84.1 >60 5 Laboratory test 01/15/2018 [facility] Uric Acid 4.7 mg/dL N 4.4-7.6 finding [address] [place] [address] [phone] 1 Desirable: <150 Borderline High: 150-199 High: [...] dialysis) Procedures Date Code Description Status 01/15/2018 22220 Inject/Drain Joint/Bursa Major W/O US Completed 12/04/2017 60268 ECHO Transthorasic Realtime 2D W Doppler & Color Flow Hosp Completed Encounters Type Date Location Provider Dx Diagnosis Office Visit 03/18/2018 [facility] Internal Tae Smith S06.4x0S Epidural 4:00p Daya Gilman M.D. hemorrhage without [place] loss of consciousness, sequela G89.29 Other chronic pain E11.42 Type 2 diabetes mellitus with diabetic polyneuropathy E03.9 Hypothyroidism, unspecified E78.5 Hyperlipidemia, unspecified Office Visit 01/23/2018 [facility] Internal Kang Whittaker S06.4x0S Epidural hemorrhage 2:00p Daya Jeffers M.D.,FACP without loss of [address] consciousness, sequela E11.65 Type 2 diabetes mellitus with hyperglycemia E78.5 Hyperlipidemia, unspecified E03.9 Hypothyroidism, unspecified G47.00 Insomnia, unspecified I48.0 Paroxysmal atrial fibrillation Office Visit 01/15/2018 [facility] Martinez M 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 AT [place] knee Office Visit 12/17/2017 [facility] Internal Kang Whittaker S06.4x0D Epidural hemorrhage 12:00p [...] E78.5 Hyperlipidemia, unspecified Office Visit 12/05/2017 12:51p [facility] Deven Magana, R29.810 Facial weakness [facility] G45.9 Transient cerebral ischemic attack, unspecified E11.65 Type 2 diabetes mellitus with hyperglycemia Z79.4 jail (current) use of insulin Office Visit 12/04/2017 [facility] Williams Arambula, G45.9 Transient 7:00a Clinic cerebral ischemic attack, unspecified I10 Essential (primary) hypertension I48.91 Unspecified atrial fibrillation E78.5 Hyperlipidemia, unspecified Z86.73 Prsnl hx of TIA (TIA), and cereb infrc w/o resid deficits Office Visit 12/03/2017 [facility] Travis Becerra G45.9 Transient 12:50p Assoc,ella HERNANDEZ M.D. cerebral Hospitalists ischemic attack, unspecified Z79.4 intermediate project manager (current) use of insulin E11.65 Type 2 diabetes mellitus with hyperglycemia Z86.73 Prsnl hx of TIA (TIA), and cereb infrc w/o resid deficits Plan of Treatment Future Appointment(s):06/16/2018 9:00 am - Williams Arambula MD at [facility] [id number]/26/2018 9:30 am - Wally You MD at [facility]03/26/2019 9:20 am - Tae Gilman M.D. at [facility] Internal Medicine - [id number]/29/2019 - Wally You, MDS06.4x0S Epidural hemorrhage without loss of consciousness, ejnqlanD42.896 Other spondylosis, lumbar regionFollow up:RV in 1-2 months
--- OUTSIDE RECORDS SUMMARY | 2018-05-22 13:43 | XMS REPORT | Continuity of Care Document ---
:1935 External Reference #:[id number] Author Name Imani Vega Care Team Providers Name Role Phone Patient's Choice Primary Care Physician Unavailable Payers Date Identification Numbers Payment Provider Subscriber Policy Number: [id number] Medicare Pete John PayID: [id number] [address] [place] [address] Policy Number: [id number] [facility] Pete John PayID: [id number] [address] [place] [address] Advance Directives Description No Information Available Problems [...] M.D.,FACP Active Family History Date Family Member(s) Observation Comments Father Stroke Father due to Stroke [...] Former Cigarette Smoker Unknown Smoking Status Reviewed: 05/22/18 Former Cigarette Smoker ETOH Use Denies alcohol use Tobacco Use Start: Unknown End: Patient is a former Unknown smoker Recreational Drug Use Denies Drug Use Exercise Type/Frequency 12/17/2017 Exercises rarely Allergies, Adverse Reactions, Alerts Date Description Reaction Status Severity Comments 12/17/2017 [place] Urticaria Active Mild 12/17/2017 Iodine Active Severe hypothryroidsim 01/15/2018 Lantus Active Medications Medication Date Status Form Strength Qnty SIG Indications Ordering Provider Novolog Flexpen 01/23 Active Solution 100Unit/M 15ml 5-10 units SC Pen-Injec L pre-meal Panfilo méndez t sliding scale M.D.,FACP Metoprolol 01/23 Active [...] Active Tablets 5mg 90tab 1 tab by Tae Smith s mouth every 6 Kalina, hours as M.D. needed pain Tikosyn 00 Active Capsules 500mcg 1 by mouth Unknown /0000 twice a day Synthroid 00 Active Tablets 88mcg 1 by mouth Unknown [...] Kang ps twice a day Panfilo Jeffers M.D.,[facility] Trulicity Active Solution 0.75mg/0. inject 0.75mg Unknown Pen-Injec 5ML once a week t Vitamin B1 Active Tablets 100mg 1 by mouth Unknown every day Testosterone Active Solution 100mg/ml 1 milliliters Unknown Cypionate intramuscular q2 weeks code f Diphenoxylate Active Tablets 2.5-0.025 Unknown Hydrochloride/At /0000 mg ropine Sulfate Cyclobenzaprine Active Tablets 5mg take one Unknown HCL tablet by mouth every 8 hours prn. (pt states he takes 4-5x qd) Lorazepam 02/10 Hx Tablets 1mg 14tab 1/2-1 tab by s mouth every 8 D. Aury, - hours as M.DShey,[facility] 05/19 needed anxiety Alprazolam 01/23 Hx Tablets 0.5mg 20tab take 1/2-1 s tablet by Panfilo Jeffers, - mouth in M.DShey,FACP 02/10 evening needed Dexpak 12/17 Hx TBPK [...] Form Strength Qnty SIG Indications Ordering Provider Depomedrol Administered Injection Martinez M 40MG 019 MD Rojas Depomedrol Administered Injection Martinez M 40MG 019 MD Rojas Celestone 3 mg Administered Injection Martinez M and 3mg 018 MD Rojas Celestone 3 mg Administered Injection Martinez M and 3mg 018 MD Rojas Immunizations CPT Code Status Date Vaccine Lot # [id number] Given 12/18/2017 Pneumococcal Conjugate Vaccine 13 Valent For Intramuscular Use 20404 Given 12/17/2017 Influenza Virus Vaccine, Quadrivalent, Split, [id number] Preservative Free Vital Signs Date Vital Result Comment 05/22/2018 11:33am Height 67.0 inches 5'7" Weight 225.00 lb Heart Rate 82 /min BP Systolic Sitting 110 mmHg BP Diastolic Sitting 70 mmHg Respiratory Rate 18 /min Pain Level 7 O2 % BldC Oximetry 96 % BMI (Body Mass Index) 35.2 kg/m2 04/28/2018 9:35am Height 67.0 inches 5'7" Weight [...] Result H/L Range Note Laboratory test 01/23/2018 [facility] Hemoglobin A1c 7.5 High 5-7 finding Lipid Profile 01/15/2018 [facility] Triglycerides 218 mg/dL 1 (Trig/Chol/HDL) [place] [address] [phone] Cholesterol 166 mg/dL 2 HDL Cholesterol 32.3 mg/dL 3 LDL Cholesterol 90 mg/dL 4 Laboratory test 01/15/2018 [facility] TSH (Thyroid 1.53 mcIU/mL N 0.34-5.60 finding [facility] Stim Horm) [place] [address] [phone] Comp Metabolic 01/15/2018 [facility] Sodium 138 mmol/L N 135- 145 Panel [facility] [place] [address] [phone] Potassium 4.4 mmol/L N 3.5-5.0 Chloride 101 [...] Egfr 84.1 >60 5 Laboratory test 01/15/2018 [facility] Uric Acid 4.7 mg/dL N 4.4-7.6 finding [address] [place] [address] [phone] 1 Desirable: <150 Borderline High: 150-199 High: [...] (or dialysis) Procedures Date Code Description Status 05/22/201888446 Inject/Drain Joint/Bursa Major W/O US Completed 01/15/2018 21367 Inject/Drain Joint/Bursa Major W/O US Completed 12/04/2017 85299 ECHO Transthorasic Realtime 2D W Doppler & Color Flow Hosp Completed Encounters Type Date Location Provider Dx Diagnosis Office Visit 05/22/2018 Orthopedic Martinez Xie, 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 1:15p Services Of Vishnu MAHER MD osteoarthritis of [place] knee Office Visit 04/28/2018 Neurosurgery Vassilios M47.896 Other spondylosis, 9:30a Services Of [facility]nu You MD lumbar region M96.840 Postproc hematoma of a ms structure fol a ms sys procedure Office Visit 03/18/2018 [facility] Internal aTe Smith S06.4x0S Epidural hemorrhage 4:00p [facility], sequela G89.29 Other chronic pain E11.42 Type 2 diabetes mellitus with diabetic polyneuropathy E03.9 Hypothyroidism, unspecified E78.5 Hyperlipidemia, unspecified Office Visit 01/23/2018 [facility] Internal Kang Whittaker S06.4x0S Epidural hemorrhage 2:00p Daya Jeffers M.D.,FACP without loss of [address] consciousness, sequela E11.65 Type 2 diabetes mellitus with hyperglycemia E78.5 Hyperlipidemia, unspecified E03.9 Hypothyroidism, unspecified G47.00 Insomnia, unspecified I48.0 Paroxysmal atrial fibrillation Office Visit 01/15/2018 Orthopedic Martinez M 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 AT [place] knee Office Visit 12/17/2017 [facility] Internal Kang Whittaker S06.4x0D Epidural hemorrhage 12:00p Daya Jeffers, w/o loss of Rd Vito,FACP consciousness, subs encntr Z86.73 Prsnl hx of TIA (TIA), and cereb infrc w/o resid deficits E78.5 Hyperlipidemia, unspecified Z23 Encounter for immunization Office Visit 12/05/2017 [facility] Williams Arambula, G45.9 Transient 7:00a Clinic cerebral ischemic attack, unspecified I10 Essential (primary) hypertension I48.91 Unspecified atrial fibrillation E78.5 Hyperlipidemia, unspecified Office Visit 12/05/2017 12:51p [facility] Deven Magana, R29.810 Facial weakness [facility] G45.9 Transient cerebral ischemic attack, unspecified E11.65 Type 2 diabetes mellitus with hyperglycemia Z79.4 penitentiary (current) use of insulin Office Visit 12/04/2017 [facility] Williams Arambula G45.9 Transient 7:00a Clinic cerebral ischemic attack, unspecified I10 Essential (primary) hypertension I48.91 Unspecified atrial fibrillation E78.5 Hyperlipidemia, unspecified Z86.73 Prsnl hx of TIA (TIA), and cereb infrc w/o resid deficits Office Visit 12/03/2017 [facility] Travis Becerra G45.9 Transient 12:50p Assoc,ella HERNANDEZ M.D. cerebral Hospitalists ischemic attack, unspecified Z79.4 penitentiary (current) use of insulin E11.65 Type 2 diabetes mellitus with hyperglycemia Z86.73 Prsnl hx of TIA (TIA), and cereb infrc w/o resid deficits Plan of Treatment Future Appointment(s):06/16/2018 9:00 am - Williams Arambula MD at [facility] [id number]/26/2018 9:30 am - Wally You MD at [facility]/26/2019 9:20 am - Tae Gilman M.D. at [facility] Internal Medicine - [id number]/22/2019 - Martinez Xie, MD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 osteoarthritis of kneeFollow up:Follow up: As needed
--- NOTE | 2018-05-22 16:26 | ED ---
Back Pain - HPI Summary HPI Summary: Patient is a 83 y/o M presenting to ED with complaints of back pain. He states that he has a scheduled outpatient MRI at 1830 today. Patient came to ED for Toradol 30 mg IV. 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 Upon review of recent labwork at [facility], pt had normal renal function. He has come to ED for similar reasons in the past, he states that he does not have a PCP. It was believed that patient's PCP was Dr. Gilman. However, in the room he states that he had seen Dr. Gilman and had disagreements with Dr. Gilman and therefore does not see Dr. Gilman anymore. Patient rambles extensively about the providers he likes at [facility] as well as his personal social life. He also reports that he had a blood clot that "I dissolved with my own ingenuity". Patient is follow by Dr. You, who ordered the outpatient MRI to be done today. On triage, pain is rated 8/10, nothing is noted to aggravate/alleviate Sx. Home medications, allergies, and nurse's note are reviewed. Allergies Allergy/AdvReac Type Severity Reaction Status Date / Time Adhesive Tape Allergy Rash Verified 04/03/18 12:38 insulin glargine Allergy Swelling Verified 04/03/18 12:38 apixaban [From Eliquis] AdvReac bleed from Verified 04/03/18 12:38 the bones iodine AdvReac "thyroid Verified 04/03/18 12:38 storm" citris fruit Allergy Rash Uncoded 04/03/18 12:38 - History of Current Complaint Chief Complaint: EDBackInjuryPain Stated Complaint: BACK PAIN Time Seen by Provider: 05/22/18 14:54 Hx Obtained From: Patient, Medical Records - prior [facility] records Onset/Duration: Gradual Onset, Still Present Onset/Duration: Started Weeks Ago - years, Still Present Timing: Constant Back Pain Location: Is Discrete @ - lower back Severity Initially: Severe Severity Currently: Severe Pain Intensity: 8 Pain Scale Used: 0-10 Numeric - 8/10 Character: Sharp Aggravating Symptom(s): Nothing Alleviating Symptom(s): Nothing Associated Signs And Symptoms: Positive: Negative - Allergies/Home Medications Allergies/Adverse Reactions: Allergies Allergy/AdvReac Type Severity Reaction Status Date / Time Adhesive Tape Allergy Rash Verified 04/03/18 12:38 insulin glargine Allergy Swelling Verified 04/03/18 12:38 apixaban [From Eliquis] AdvReac bleed from Verified 04/03/18 12:38 the bones iodine AdvReac "thyroid Verified 04/03/18 12:38 storm" citris fruit Allergy Rash Uncoded 04/03/18 12:38 PMH/Surg Hx/FS Hx/Imm Hx Endocrine/Hematology History: Reports: Hx Diabetes - CONTROLLED Cardiovascular History: Reports: Hx Atrial Fibrillation Denies: Hx Hypertension, Hx Pacemaker/ICD Respiratory History: Denies: Hx Asthma History: Denies: Hx Renal Disease Sensory History: Reports: Hx Contacts or Glasses Denies: Hx Hearing Aid Opthamlomology History: Reports: Hx Contacts or Glasses Neurological History: Reports: Hx CVA, Other Neuro Impairments/Disorders - states "blood clot in his spine" , epidural hematoma in prior records Psychiatric History: Denies: Hx Eating Disorder, Hx Panic Disorder - Surgical History Surgery Procedure, Year, and Place: L4-L5 spine surgery. C3-C4 fusion. C6-C7 fusion. CARDIAC ABLATION. BOWEL RESECTION. NASAL SEPTUM. HERNIA REPAIRS. CATARACTS. CARPAL TUNNEL. TONSILECTOMY. APPENDECTOMY. BUNIONECTOMY Infectious Disease History: No Infectious Disease History: Denies: Traveled Outside the [place] in Last 30 Days - Family History Known Family History: Positive: Diabetes - Social History Alcohol Use: None Hx Substance Use: No Substance Use Type: Reports: None Hx Tobacco Use: Yes Smoking Status (MU): Former Smoker Review of Systems Negative: Fever - on vitals, temp is 99 F Cardiovascular: Negative Respiratory: Negative Gastrointestinal: Negative Positive: no symptoms reported Musculoskeletal: Other - POSITIVE - BACK PAIN Skin: Negative Neurological: Negative Psychological: Normal All Other Systems Reviewed And Are Negative: Yes Physical Exam - Summary Physical Exam Summary: Appearance: Well-appearing, minimal pain distress, well-nourished, talkative Skin: Warm, color reflects adequate perfusion, dry Head: Normal Head/Face inspection, atraumatic Eyes: Conjunctiva clear ENT: Normal inspection Neck: Supple, no nodes, no JVD Respiratory: Lungs clear, normal breath sounds, no respiratory distress Cardio: RRR, No murmur, pulses normal, brisk capillary refill Abdomen: Soft, nontender Bowel sounds: Present Musculoskeletal: Strength Intact/ROM intact, no calf tenderness, no edema, lower back tenderness is noted, able to ambulate with no limping Psychological: Normal Neuro: A&O x3, CN II-XII intact, motor function 5/5, sensation intact to light touch, cerebellar normal gait Triage Information Reviewed: Yes Vital Signs On Initial Exam: Initial Vitals Temp Pulse Resp BP Pulse Ox 99.0 F 90 16 130/92 97 05/22/18 13:04 05/22/18 13:04 05/22/18 13:04 05/22/18 13:04 05/22/18 13:04 Vital Signs Reviewed: Yes Diagnostics - Vital Signs Vital Signs Temp Pulse Resp BP Pulse Ox 05/22/18 14:53 99.1 F 88 18 0/0 97 05/22/18 13:04 99.0 F 90 16 130/92 97 - Laboratory Lab Statement: Any lab studies that have been ordered have been reviewed, and results considered in the medical decision making process. Back Pain Course/Dx - Course Course Of Treatment: Patient is a 83 y/o M presenting to ED with complaints of back pain. He states that he has a scheduled outpatient MRI at 1830 today. Patient came to ED for Toradol 30 mg IV. He has come to ED for similar reasons in the past, he states that he does not have a PCP. It was believed that patient 's PCP was Dr. Gilman. However, in the room he states that he had seen Dr. Gilman and had disagreements with Dr. Gilman and therefore does not see Dr. Gilman anymore. Patient rambles extensively about the providers he likes at [facility] as well as his personal social life. He also reports that he had a blood clot that "I dissolved with my own ingenuity". Patient is follow by Dr. You. On triage, pain is rated 8/10, nothing is noted to aggravate/ alleviate Sx. Home medications, allergies, and nurse's note are reviewed. On physical exam, lower back tenderness is noted, patient able to ambulate with no limping. Neuro exam: A&O x3, CN II-XII intact, motor function 5/5, sensation intact, cerebellar normal. Review of medical records showed GFR 67.8, BUN 22, creatinine 1.05 from last visit 04/28/18. Patient is agreeable with receiving 30 mg Toradol IV and then discharge to home so he can go to his 1830 MRI appointment. - Diagnoses Differential Diagnosis/HQI/PQRI: Positive: Epidural Abscess, Fracture, Osteomyelitis, Strain Provider Diagnoses: Back pain, Deficient self-management of pain Discharge - Sign-Out/Discharge Documenting (check all that apply): Patient Departure - discharge Patient Received Moderate/Deep Sedation with Procedure: No - NO PROCEDURES DONE - Discharge Plan Condition: Stable Disposition: HOME Patient Education Materials: Acute Low Back Pain (ED) Referrals: [facility] [Outside] - 2 Days [facility] PHYSICIAN REFERRAL [Outside] - As Soon As Possible Wally You MD [Medical Doctor] - (Keep your appointment with Dr. You as scheduled. ) Additional Instructions: You were given Toradol 30mg IV at 4:30pm for your low back pain. You may still have your MRI that is scheduled for 6:30pm today. You should go to admissions and register for the MRI when you are discharged from the ER. Return to the ER if you have any new or worsening symptoms. Keep your appointment with Dr. You as scheduled. - Billing Disposition and Condition Condition: STABLE Disposition: Home - Attestation Statements Document Initiated by Alessandro: Yes Documenting Scribe: LATOYA BASSETT Provider For Whom Alessandro is Documenting (Include Credential): PHILIP POSADA MD Scribe Attestation: LATOYA Romero , scribed for PHILIP POSADA MD on 05/28/18 at 0232. Scribe Documentation Reviewed: Yes Provider Attestation: The documentation as recorded by the LATOYA ventura accurately reflects the service I personally performed and the decisions made by , PHILIP POSADA MD Status of Scribe Document: Viewed
[2018-05-22] MEDS: Ketorolac INJ* 30 MG/ML 1 ML VIAL IV PUSH ONE ×2 (16:31→16:45)
[2018-05-22 17:24] VITALS: BP 128/84
== END 2018-05-22 17:23 | disposition home or self-care (01) ==
LOC: ED 12:54
DX: M54.9 Dorsalgia, unspecified (principal); Z87.891 Personal history of nicotine dependence; E11.9 Type 2 diabetes mellitus without complications; Z79.4 Long term (current) use of insulin; I48.91 Unspecified atrial fibrillation
CPT/HCPCS: 96374; 99281; J1885

== ENCOUNTER 2018-06-16 12:04 | Emergency (ER) | payer MEDICARE ==
--- OUTSIDE RECORDS SUMMARY | 2018-06-16 12:29 | XMS REPORT | Continuity of Care Document ---
:1935 External Reference #:[id number] Author Name Terri Valdes Care Team Providers Name Role Phone Patient's Choice Primary Care Physician Unavailable Payers Date Identification Numbers Payment Provider Subscriber Policy Number: [id number] Medicare Pete John PayID: [id number] [address] [place] [address] Policy Number: [id number] [facility] Pete John PayID: [id number] [address] [place] [address] Advance Directives Description No Information Available Problems Date Description Provider Status Onset: 12/17/2017 Spinal epidural hematoma Kang Jeffers M.D.,FACP Active Note: post injection Onset: 12/17/2017 Paroxysmal atrial fibrillation Kang Jeffers M.D., FACAdelina Active Onset: 12/17/2017 Type 2 diabetes mellitus Kang Jeffers M.D.,FACP Active Onset: 12/17/2017 Carotid artery stenosis Kang Jeffers M.D.,FACP Active Note: bilat <50% Onset: 12/17/2017 Hypothyroidism Aubrie Islas M.D.,FACP Onset: 12/17/2017 Gout Aubrie Islas M.D.,FACP Onset: 01/23/2018 Insomnia Aubrie Islas M.D.,FACP Onset: 05/27/2018 Asthma without status asthmaticus Deven Magana MD Active Onset: 05/27/2018 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 Onset: 05/27/2018 Chronic pain Deven Magana MD Active Onset: 05/27/2018 Lumbar spondylosis Deven Magana MD Active Onset: 05/27/2018 Hyperlipidemia Deven Magana MD Active Onset: 05/27/2018 Anxiety state Deven Magana MD Active Family History Date Family Member(s) Observation [...] Former Cigarette Smoker Unknown Smoking Status Reviewed: 05/27/18 Former Cigarette Smoker ETOH Use Denies alcohol use Tobacco Use Start: Unknown End: Patient is a former Unknown smoker Recreational Drug Use Denies Drug Use Exercise Type/Frequency 12/17/2017 Exercises rarely Allergies, Adverse Reactions, Alerts Date Description Reaction Status Severity Comments 12/17/2017 Pratt Urticaria Active Mild 12/17/2017 Iodine Active Severe hypothryroidsim 01/15/2018 Lantus Active Medications Medication Date Status Form Strength Qnty SIG Indications Ordering Provider Melatonin 05/27 Active Chewtabs 2.5mg 30uni 1 tab every G47.00 Deven Lakhani ts night at MD [place] bedtime Novolog Flexpen 01/23 Active Solution 100Unit/M 15ml 5-10 units SC Pen-Injec L pre-meal tid, Panfilo Jeffers t sliding scale M.D.,FACP Metoprolol 01/23 Active Tablets 100mg 90tab take 1 tablet Kang Succinate ER 24HR s by mouth once Panfilo Jeffers, a day M.D.,FACP Metoprolol 01/23 Active Tablets 25mg 90tab 1 by mouth Kang Succinate ER ER 24HR s every day Panfilo Jeffers, with 100 mg M.D.,FACP tab Crestor 12/17 Active Tablets 5mg 45tab take 1/2 s tablet by Panfilo Jeffers, mouth every M.D.,FACP evening Aspir-81 12/17 Active Tablets 81mg 30tab [address] s every day Panfilo Jeffers M.D.,FACP Flector 12/17 Active Patches 1.3% 10uni apply 1 patch ts to the skin Panfilo Jeffers, two times Vito,FACP daily as needed Oxycodone HCL 12/17 Active Tablets 5mg 90tab 1 tab by Tae Smith s mouth every 6 Kalina, hours as M.D. needed pain Tikosyn Active Capsules 500mcg 1 by mouth Unknown twice a day Synthroid Active Tablets 88mcg 2 tabs a day Vitamin B12 Active Tablets 1000mcg 1 by mouth ER every day Vitamin D3 Ultra Active Capsules 5000Unit 1 by mouth Unknown Strength every day x 3 months Zyloprim Active [...] Hx Tablets 1mg 14tab 1/2-1 tab by Kang s mouth every 8 D. Aury, - hours as M.DShey,FACP 05/19 needed anxiety Alprazolam 01/23 Hx Tablets 0.5mg 20tab take 1/2-1 s tablet by Panfilo Jeffers, - mouth in M.D.,FACP 02/10 evening needed Dexpak 10 Day 12/17 Hx TBPK 1.5mg pt reports he Kang (35) is not Panfilo Jeffers, - following M.D.,FACP 01/15 Metoprolol 00 Hx Tablets 100mg 1 by mouth Unknown Succinate ER /0000 ER 24HR every day - 01/15 Dexpak 10 Day 00 Hx TBPK 1.5mg pt reports he Unknown /0000 (35) is not - following 12/17 Synthroid Hx Tablets 75mcg 1 by mouth Unknown /0000 every day - with 88 mcg 05/26 Novolog Hx Solution 100Unit/M 11-12 units Unknown /0000 L times per day - prn 01/15 Metoprolol Hx Tablets 125mg take 1 tablet Unknown Tartrate /0000 by mouth - twice a day 01/23 Medications Administered in Office Medication Date Status Form Strength Qnty SIG Indications Ordering Provider Depomedrol Administered Injection Martinez M 40MG 019 MD Rojas Depomedrol Administered Injection Mratinez M 40MG 019 MD Rojas Celestone 3 mg Administered Injection Martinez M and 3mg 018 MD Rojas Celestone 3 mg Administered Injection Martinez M and 3mg 018 MD Rojas Immunizations CPT Code Status Date Vaccine Lot # [id number] Given 12/18/2017 Pneumococcal Conjugate Vaccine 13 Valent For Intramuscular Use 36269 Given 12/17/2017 Influenza Virus Vaccine, Quadrivalent, Split, [id number] Preservative Free Vital Signs Date Vital Result Comment 05/27/2018 12:55pm Heart Rate 84 /min Respiratory Rate 16 /min Body Temperature 98.4 F Pain Level 10 back O2 % BldC Oximetry 98 % 05/22/2018 11:33am Height 67.0 inches 5'7" Weight [...] Result H/L Range Note Laboratory test 01/23/2018 [facility] In House Hemoglobin A1c 7.5 High 5-7 finding Lipid Profile 01/15/2018 [facility] Triglycerides 218 mg/dL 1 (Trig/Chol/HDL) [place] [address] [phone] Cholesterol 166 mg/dL 2 HDL Cholesterol 32.3 mg/dL 3 LDL Cholesterol 90 mg/dL 4 Laboratory test 01/15/2018 [facility] TSH (Thyroid 1.53 mcIU/mL N 0.34-5.[address] Stim Horm) [place] [address] [phone] Comp Metabolic 01/15/2018 [facility] Sodium 138 mmol/L N 135- 145 Panel [address] [place] [address] [phone] Potassium 4.4 mmol/L N 3.5-5.0 Chloride 101 [...] Egfr 84.1 >60 5 Laboratory test 01/15/2018 [facility] Uric Acid 4.7 mg/dL N 4.4-7.6 finding [address] [place] [address] [phone] 1 Desirable: <150 Borderline High: 150-199 High: [...] (or dialysis) Procedures Date Code Description Status 05/22/2018 89347 Inject/Drain Joint/Bursa Major W/O US Completed 01/15/201845537 Inject/Drain Joint/Bursa Major W/O US Completed 12/04/2017 95356 ECHO Transthorasic Realtime 2D W Doppler & Color Flow Hosp Completed Encounters Type Date Location Provider Dx Diagnosis Office Visit 04/28/2018 [facility] M47.896 Other 9:30a [facility] You MD spondylosis, lumbar region M96.840 Postproc hematoma of a ms structure fol a ms sys procedure Office Visit 03/18/2018 [facility] Internal Tae Smith S06.4x0S Epidural hemorrhage 4:00p Daya Gilman M.D. without loss of [place] consciousness, sequela G89.29 Other chronic pain E11.42 Type 2 diabetes mellitus with diabetic polyneuropathy E03.9 Hypothyroidism, unspecified E78.5 Hyperlipidemia, unspecified Office Visit 01/23/2018 [facility] Internal Kang Whittaker S06.4x0S Epidural hemorrhage 2:00p Daya Jeffers M.D.,FACP without loss of [address] consciousness, sequela E11.65 Type 2 diabetes mellitus with hyperglycemia E78.5 Hyperlipidemia, unspecified E03.9 Hypothyroidism, unspecified G47.00 Insomnia, unspecified I48.0 Paroxysmal atrial fibrillation Office Visit 01/15/2018 Orthopedic Martinez M 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 Office Visit 12/17/2017 [facility] Internal Kang Whittaker S06.4x0D Epidural hemorrhage 12:00p Medicine Eliezer Jeffers, w/o loss of Rd M.D.,FACP consciousness, subs encntr Z86.73 Prsnl hx of TIA (TIA), and cereb infrc w/o resid deficits E78.5 Hyperlipidemia, unspecified Z23 Encounter for immunization Office Visit 12/05/2017 [facility] Arambula, G45.9 Transient 7:00a Clinic cerebral ischemic attack, unspecified I10 Essential (primary) hypertension I48.91 Unspecified atrial fibrillation E78.5 Hyperlipidemia, unspecified Office Visit 12/05/2017 12:51p [facility] Deven Magana, R29.810 Facial weakness Assoc,pc MD Hospitalists G45.9 Transient cerebral ischemic attack, unspecified E11.65 Type 2 diabetes mellitus with hyperglycemia Z79.4 [facility] (current) use of insulin Office Visit 12/04/2017 [facility] Arambula, G45.9 Transient 7:00a Clinic cerebral ischemic attack, unspecified I10 Essential (primary) hypertension I48.91 Unspecified atrial fibrillation E78.5 Hyperlipidemia, unspecified Z86.73 Prsnl hx of TIA (TIA), and cereb infrc w/o resid deficits Office Visit 12/03/2017 [facility] Travis Becerra G45.9 Transient 12:50p Assella beard II, M.D. 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 at [facility] Internal Medicine [facility]05/27/2018 - Deven Magana MDG47.00 Insomnia, unspecifiedNew Medication:Melatonin Gummies 2.5 mg - 1 tab every night at bedtimeComments:We will trial melatonin as it is much safer to take this for sleep disturbance while on the oxycodone.E11.42 Type 2 diabetes mellitus with diabetic jdbatyoratkrdyY79.5 Hyperlipidemia, bvysbampvedK83.896 Other spondylosis, lumbar efmouzZ19.29 Other chronic painI48.0 Paroxysmal atrial adyacyhnsucrB01.909 Unspecified asthma, uncomplicated
[2018-06-16] MEDS ORDERED: Ketorolac INJ* 30 MG/ML 1 ML VIAL IM ONE (13:41)
--- NOTE | 2018-06-16 13:51 | ED ---
Back Pain - HPI Summary HPI Summary: Pt is an 83 y/o male who presents to the ED c/o back pain. He is here frequently for back pain and requests Toradol injections when he is here. Pt was last here on 05/22/18 for the back pain by myself, and had renal function checked and the toradol injection. He has seen Dr. You and Dr. Arambula since that ED visit,a dn has another appt with him scheduled. Today in addition to his back pain he c/o pain all over due to his gout, osteoarthritis, and spinal stenosis. He began having this type of pain 3 months ago. Pt rates his pain as a 5/10 in severity. He reports some LE weakness, but denies any LE numbness/paresthesia, or urinary/bowel incontinence. He has seen Dr. Arambula and Dr. Ibarra for his symptoms. Dr. Ibarra gave him a prescription however his pharmacy wont cover the medication. PSHx L4-L5 spinal surgery, C3-C4 fusion, C6 -C7 fusion. 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 - History of Current Complaint Chief Complaint: EDGeneral Stated Complaint: BODY PAIN PER PT Time Seen by Provider: 06/16/18 13:41 Hx Obtained From: Patient, Medical Records - [facility] Onset/Duration: Gradual Onset, Still Present Onset/Duration: Started Weeks Ago - at least 5 months based on ED visits Timing: Constant Back Pain Location: Is Diffuse - "all over body", but mostly lumbar spine Severity Initially: Moderate Severity Currently: Moderate Pain Intensity: 5 Pain Scale Used: 0-10 Numeric Character: Aching Aggravating Symptom(s): Nothing Alleviating Symptom(s): Nothing Associated Signs And Symptoms: Positive: Weakness - some LE weakness but not acute, uses wheelchair when in ED. Negative: Numbness, Tingling, Bladder Incontinence, Bowel Incontinence Related History: Similar Episode Dx As - here frequently for back pain - Allergies/Home Medications Allergies/Adverse Reactions: Allergies Allergy/AdvReac Type Severity Reaction Status Date / Time Adhesive Tape Allergy Rash Verified 04/03/18 12:38 insulin glargine Allergy Swelling Verified 04/03/18 12:38 apixaban [From Eliquis] AdvReac bleed from Verified 04/03/18 12:38 the bones iodine AdvReac "thyroid Verified 04/03/18 12:38 storm" citris fruit Allergy Rash Uncoded 04/03/18 12:38 PMH/Surg Hx/FS Hx/Imm Hx Previously Healthy: No Endocrine/Hematology History: Reports: Hx Diabetes - CONTROLLED Cardiovascular History: Reports: Hx Atrial Fibrillation Denies: Hx Hypertension, Hx Pacemaker/ICD Respiratory History: Denies: Hx Asthma History: Denies: Hx Renal Disease Musculoskeletal History: Reports: Hx Arthritis - osteoarthritis, Hx Back Problems, Hx Gout, Other Musculoskeletal History - spinal stenosis Sensory History: Reports: Hx Contacts or Glasses Denies: Hx Hearing Aid Opthamlomology History: Reports: Hx Contacts or Glasses Neurological History: Reports: Hx CVA, Other Neuro Impairments/Disorders - states "blood clot in his spine" Psychiatric History: Denies: Hx Eating Disorder, Hx Panic Disorder - Surgical History Surgery Procedure, Year, and Place: L4-L5 spine surgery. C3-C4 fusion. C6-C7 fusion. CARDIAC ABLATION. BOWEL RESECTION. NASAL SEPTUM. HERNIA REPAIRS. CATARACTS. CARPAL TUNNEL. TONSILECTOMY. APPENDECTOMY. BUNIONECTOMY Infectious Disease History: No Infectious Disease History: Denies: Traveled Outside the [place] in Last 30 Days - Family History Known Family History: Positive: Diabetes - Social History Occupation: Retired Alcohol Use: None Hx Substance Use: No Substance Use Type: Reports: None Hx Tobacco Use: Yes Smoking Status (MU): Former Smoker Review of Systems Constitutional: Negative Cardiovascular: Negative Respiratory: Negative Gastrointestinal: Negative Negative: Other - neg bowel incontinence Negative: incontinence Positive: Myalgia - "all over" - back Skin: Negative Positive: Weakness - LE, but not acute . Negative: Paresthesia - LE, Numbness - LE Psychological: Normal All Other Systems Reviewed And Are Negative: Yes Physical Exam - Summary Physical Exam Summary: Appearance: Well-appearing, moderate pain distress, well-nourished Skin: Warm, color reflects adequate perfusion, dry Head: Normal Head/Face inspection, atraumatic Eyes: Conjunctiva clear ENT: Normal inspection Neck: Supple, no nodes, no JVD Respiratory: Lungs clear, normal breath sounds, no respiratory distress Cardio: RRR, No murmur, pulses normal, brisk capillary refill Abdomen: Soft, nontender Musculoskeletal: Strength Intact/ROM intact or all extremities, sensation intact to light touch, no calf tenderness, no edema, Back with paraspinous lumbar tenderness, no spinal tenderness Psychological: Normal Neuro: Alert, muscle tone normal, no focal deficit Triage Information Reviewed: Yes Vital Signs On Initial Exam: Initial Vitals Temp Pulse Resp BP Pulse Ox 98.5 F 78 18 123/83 97 06/16/18 12:11 06/16/18 12:11 06/16/18 12:11 06/16/18 12:11 06/16/18 12:11 Vital Signs Reviewed: Yes Diagnostics - Vital Signs Vital Signs Temp Pulse Resp BP Pulse Ox 06/16/18 12:11 98.5 F 78 18 123/83 97 - Laboratory Result Diagrams: 06/16/18 14:16 06/16/18 14:15 Lab Statement: Any lab studies that have been ordered have been reviewed, and results considered in the medical decision making process. Re-Evaluation - Re-Evaluation First Eval Re-Evaluation Time: 14:45 Change: Improved Comment: Pt feels much better after the Toradol injection. He has an appointment with Dr. You. Back Pain Course/Dx - Course Course Of Treatment: Pt is an 83 y/o male who presents to the ED c/o back pain and pain all over. He is here frequently for back pain and requests Toradol injections. A physical exam was normal. Pt medications reviewed this visit. Nurses notes reviewed. Allergies noted. He feels better after the Toradol. Pt will be discharged with a final dx of acute exacerbation of chronic low back pain. He is agreeable with this plan. - Diagnoses Provider Diagnoses: Acute exacerbation of chronic low back pain Discharge - Sign-Out/Discharge Documenting (check all that apply): Patient Departure - Discharge Patient Received Moderate/Deep Sedation with Procedure: No - Discharge Plan Condition: Improved Disposition: HOME Patient Education Materials: Peripheral Neuropathy (ED), Back Pain (ED) Referrals: [facility] [Outside] - 2 Days Additional Instructions: You were given toradol 30mg IM. Your blood tests were drawn and results will print with these DC papers. Keep your appointments with Dr. Arambula and Dr. Lugo. Return to the ER if any new or worsening symptoms. - Billing Disposition and Condition Condition: IMPROVED Disposition: Home - Attestation Statements Document Initiated by Scribe: Yes Documenting Scribe: Geovanna Cottrell Provider For Whom Scribe is Documenting (Include Credential): Valerie Bear MD Scribe Attestation: Geovanna Romero, scribed for Valerie Bear MD on 06/23/18 at 1201. Status of Scribe Document: Viewed
[2018-06-16 14:43] LABS: ABS Basophils 0 10^3/ul (0-0.2); ABS Eosinophils 0.1 10^3/ul (0-0.6); ABS Lymphocytes 2.3 10^3/ul (1.0-4.8); ABS Monocytes 0.5 10^3/ul (0-0.8); ABS Neutrophils 3.7 10^3/ul (1.5-7.7); ABS Nucleated RBC 0 10^3/ul; Eosinophil % 0.9 %; Hematocrit 52 % (36-46); Hemoglobin 16.8 g/dL (14.0-18.0); Lymphocyte % 35.8 %; Mean Corpuscular HGB Conc 32 g/dL (31-36); Mean Corpuscular Hemoglobin 28 pg (27-31); Mean Corpuscular Volume 87 fL (80-94); Mean Platelet Volume 8.4 fL (7.4-10.4); Nucleated Red Blood Cells % 0.1; Platelet Count 158 10^3/uL (150-450); Red Blood Count 5.94 10^6 /uL (4.18-5.48); Red Cell Distribution Width 16 % (10.5-15); White Blood Count 6.5 10^3/uL (3.5-10.8)
[2018-06-16 15:21] LABS: Albumin 3.8 g/dL (3.2-5.2); Albumin/Globulin Ratio 1.4 (1-3); BUN/Creatinine Ratio 19.5 (8-20); Calcium 8.8 mg/dL (8.6-10.3); EGFR African American 71.7 (>60); EGFR Non-African American 59.2 (>60); Globulin 2.8 g/dL (2-4); HDL Cholesterol 42.3 mg/dL; Potassium 3.7 mmol/L (3.5-5.0); Total Bilirubin 0.8 mg/dL (0.2-1.0); Total Protein 6.6 g/dL (6.4-8.9)
[2018-06-16 15:31] LABS: TSH (Thyroid Stimulating Horm) 0.96 mcIU/mL (0.34-5.60)
[2018-06-16 15:57] VITALS: BP 137/77
== END 2018-06-16 15:57 | disposition home or self-care (01) ==
LOC: ED 12:04
DX: M54.5 Low back pain (principal); M79.10 Myalgia, unspecified site; M19.91 Primary osteoarthritis, unspecified site; M10.9 Gout, unspecified; M48.00 Spinal stenosis, site unspecified; E11.9 Type 2 diabetes mellitus without complications; I48.91 Unspecified atrial fibrillation; Z88.8 Allergy status to other drugs, medicaments and biological substances; Z91.018 Allergy to other foods; Z91.048 Other nonmedicinal substance allergy status; Z87.891 Personal history of nicotine dependence
CPT/HCPCS: 36415; 80053; 80061; 82607; 84443; 85025; 96372; 99282; J1885

== ENCOUNTER → 2018-07-23 11:23 | Emergency (ER) | payer MEDICARE ==
[~2018-07-23 11:23] MED LIST changes: -Dexamethasone TAB* 6 MG PO ONE; +Ketorolac INJ* 60 MG/2 ML VIAL IM ONE; -Lidocaine PATCH 5%* 1 PATCH TRANSDERM ONE; -Lidocaine PATCH 5%* 1 PATCH TRANSDERM SCH; -Lidocaine Patch REMOVE* 1 NOTE MISC PATCH OFF ONE; -NS 0.9% 1000 ML* 1,000 ML IV ONE
[2018-07-23 11:33] VITALS: BP 113/64
--- OUTSIDE RECORDS SUMMARY | 2018-07-23 12:24 | XMS REPORT | Continuity of Care Document ---
:1935 External Reference #:[id number] Author Name Terri Valdes Care Team Providers Name Role Phone Nhung Ibarra DO Primary Care Physician Unavailable Payers Date Identification Numbers Payment Provider Subscriber Policy Number: [id number] Medicare Pete John PayID: [id number] [address] [place] [address] Policy Number: [id number] [facility] Pete John PayID: [id number] [address] [place] [address] Advance Directives Description No Information Available Problems [...] Former Cigarette Smoker Unknown Smoking Status Reviewed: 06/30/18 Former Cigarette Smoker ETOH Use Denies alcohol use Tobacco Use Start: Unknown End: Patient is a former Unknown smoker Recreational Drug Use Denies Drug Use Exercise Type/Frequency 12/17/2017 Exercises rarely Allergies, Adverse Reactions, Alerts Date Description Reaction Status Severity Comments 12/17/2017 [place] Urticaria Active Mild 12/17/2017 Iodine Active Severe hypothryroidsim 01/15/2018 Lantus Active Medications Medication Date Status Form Strength Qnty SIG Indications Ordering Provider Selsun Blue Dry 06/30 Active Shampoo 1% 1bott apply to L21.9 Nhung Scalp le scalp as Senner, DO shampoo daily Ciclopirox 06/30 Active Solution 8% 6.600 apply B35.1 ml topically Senner, DO twice a day Gabapentin 06/16 Active Capsules 300mg 180ca take one G62.9 Christopher ps cap in the Celestino MMarcy morning, 2 cap in the afternoon, and 2 cap at night. then increase to 2 cap three times a day after one week. Breo Ellipta 06/16 Active Aerosol 100-25mcg 60uni one J45.909 Nhung /2018 /Inh ts inhalation Senner, DO daily Ketorolac 06/16 Active Solution 30mg/ml 25ml inject Im G89.4 Nhung Tromethamine once a Senner, DO month Melatonin 05/27 Active Chewtabs 2.5mg 30uni 1 tab G47.00 Lesvia Sofia /2018 ts every MD night at bedtime Novolog Flexpen 01/23 Active Solution 100Unit/M 15ml 5-10 units Larry Whittaker Pen-Injec L SC [place], t pre-meal M.D.,FACP tid, sliding scale Metoprolol 01/23 Active Tablets 100mg 90tab take 1 Kang Whittaker Succinate ER 24HR s tablet by Aury, mouth once M.D.,FACP a day Metoprolol 01/23 Active Tablets 25mg 90tab 1 by mouth Kang Whittaker Succinate ER ER 24HR s every day [place], with 100 M.D.,FACP mg tab Flector 12/17 Active Patches 1.3% 10uni apply 1 Kang Whittaker ts patch to [place], the skin M.D.,FACP two times daily as needed Oxycodone HCL 12/17 Active Tablets 5mg 90tab 1 tab by Tae Smith s hussein Gilman M.D. every 6 hours as needed pain Tikosyn Active Capsules 500mcg 1 by mouth Unknown /0000 twice a day Synthroid Active Tablets 88mcg 2 tabs a Unknown / day Vitamin B12 Active Tablets 1000mcg 1 by mouth Unknown ER every day Vitamin D3 Ultra Active Capsules 5000Unit 1 by mouth Unknown Strength / every day x 3 months Zyloprim Active Tablets 300mg one tab daily Vitamin E Active Capsules 400Unit 1 by mouth Unknown every day Fish Oil Active Capsules 500mg 180ca 1 by mouth Kang Whittaker ps twice a [place], day M.D.,FACP Trulicity Active Solution 0.75mg/0. inject Pen-Injec 5ML 0.75mg t once a week Vitamin B1 Active Tablets 100mg 1 by mouth every day Testosterone Active Solution 100mg/ml 1 Unknown Cypionate /0000 milliliter s intramuscu lar q2 weeks code f Diphenoxylate Active Tablets 2.5-0.025 Unknown Hydrochloride/At /0000 mg ropine Sulfate Tamsulosin HCL Active Capsules 0.4mg 1 by mouth Unknown /0000 every day Lorazepam 02/10 Hx Tablets 1mg 14tab 2-1 tab Kang Whittaker s by mouth Aury, Eliezer every 8 M.D.,[facility] 05/19 hours needed anxiety Alprazolam 01/23 Hx Tablets 0.5mg 20tab take 04/01-1 Kang Whittaker s tablet by Aury, - mouth in M.D.,[facility] 02/10 evening needed Crestor 12/17 Hx Tablets 5mg 45tab take 04/01 Kang Whittaker s tablet by Aury, - mouth M.D.,[facility] 06/16 evening Aspir-81 12/17 Hx Tablets 81mg 30tab 1 by mouth Kang Whittaker DR jacobo every day Aury, Eliezer M.Panfilo,[facility] 06/16 Dexpak 10 Day 12/17 Hx TBPK 1.5mg pt reports Kang Whittaker (35) he is not Aury, - following M.D.,[facility] 01/15 Metoprolol Hx Tablets 100mg 1 by mouth Unknown Succinate ER /0000 ER 24HR every day - 01/15 Dexpak 10 Day Hx TBPK 1.5mg pt reports Unknown /0000 (35) he is not - following 12/17 Synthroid Hx Tablets 75mcg 1 by mouth Unknown /0000 every day - with 88 05/26 mcg Novolog Hx Solution 100Unit/M 11-12 Unknown /0000 L units - times per 01/15 day prn Metoprolol 00 Hx Tablets 125mg take 1 Unknown Tartrate /0000 tablet by - mouth 01/23 twice a day Cyclobenzaprine Hx Tablets 5mg take one Unknown HCL /0000 tablet by - mouth 06/16 every hours prn. (pt states he takes 4-5x qd) Baclofen 00 Hx Tablets 5mg 1 by mouth Unknown /0000 every - night at 06/16 bedtime for dystonia Medications Administered in Office Medication Date Status Form Strength Qnty SIG Indications Ordering Provider Depomedrol Administered Injection Martinez Scott 40MG 019 MD Jarrett Xieomedrol Administered Injection Martinez M 40MG 019 MD Rojas Celestone 3 mg Administered Injection Martinez M and 3mg 018 MD Rojas Celestone 3 mg Administered Injection Martinez M and 3mg 018 MD Rojas Immunizations CPT Code Status Date Vaccine Lot # [id number] Given 12/18/2017 Pneumococcal Conjugate Vaccine 13 Valent For Intramuscular Use 90843 Given 12/17/2017 Influenza Virus Vaccine, Quadrivalent, Split, [id number] Preservative Free Vital Signs Date Vital Result Comment 06/30/2018 1:17pm Heart Rate 88 /min BP Systolic 110 mmHg BP Diastolic 74 mmHg Respiratory Rate 16 /min Body Temperature 98.4 F 06/26/2018 9:12am Height 67 inches 5'7" Weight 225.00 lb BP Systolic Sitting 110 mmHg BP Diastolic Sitting 70 mmHg Pain Level 10 BMI (Body Mass Index) 35.2 kg/m2 06/16/2018 11:06am Heart Rate 78 /min BP Systolic 142 mmHg BP Diastolic 82 mmHg Respiratory Rate 18 /min Body Temperature 98.5 F O2 % BldC Oximetry 98 % 06/16/2018 8:47am Height 67 inches 5'7" Weight 225.00 lb Heart Rate 78 /min BP Systolic 136 mmHg BP Diastolic 80 mmHg BMI (Body Mass Index) 35.2 kg/m2 05/27/2018 12:55pm Heart Rate 84 /min Respiratory [...] Result H/L Range Note Laboratory test 01/23/2018 [facility] Hemoglobin A1c 7.5 High 5-7 finding Lipid Profile 01/15/2018 [facility] Triglycerides 218 mg/dL 1 (Trig/Chol/HDL) [address] [place] [address] [phone] Cholesterol 166 mg/dL 2 HDL Cholesterol 32.3 mg/dL 3 LDL Cholesterol 90 mg/dL 4 Laboratory test 01/15/2018 [facility] TSH (Thyroid 1.53 mcIU/mL N 0.34-5.60 finding [facility] [place] [address] [phone] Comp Metabolic 01/15/2018 [facility] Sodium 138 mmol/L N 135- 145 Panel [address] [place] [address] [phone] Potassium 4.4 mmol/L N 3.5-5.0 Chloride 101 [...] Egfr 84.1 >60 5 Laboratory test 01/15/2018 [facility] Uric Acid 4.7 mg/dL N 4.4-7.[address] [place] [address] [phone] 1 Desirable: <150 Borderline High: 150-199 High: [...] (or dialysis) Procedures Date Code Description Status 05/27/2018 99029 Nerve Conduction 05-06 Studies Completed 05/27/2018 16499 Needle Electromyography Complete, Five Or More Muscles Completed Studied 05/22/201878675 Inject/Drain Joint/Bursa Major W/O US Completed 01/15/2018 Inject/Drain Joint/Bursa Major W/O US Completed 12/04/2017 97618 ECHO Transthorasic Realtime 2D W Doppler & Color Flow Hosp Completed Encounters Type Date Location Provider Dx Diagnosis Office Visit 06/16/2018 [facility] Nhung Ibarra, G47.00 Insomnia, 11:00a [facility] unspecified E11.42 Type 2 diabetes mellitus with diabetic polyneuropathy J45.909 Unspecified asthma, uncomplicated G89.4 Chronic pain syndrome Office Visit 05/27/2018 11:40a [facility] Devenchrissy Santanad, G47.00 Insomnia , [facility] unspecified E11.42 Type 2 diabetes mellitus with diabetic polyneuropathy E78.5 Hyperlipidemia, unspecified M47.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 without loss of [place] consciousness, sequela G89.29 Other chronic pain E11.42 Type 2 diabetes mellitus with diabetic polyneuropathy E03.9 Hypothyroidism, unspecified E78.5 Hyperlipidemia, unspecified Office Visit 01/23/2018 [facility] Kang Whittaker S06.4x0S Epidural hemorrhage 2:00p Daya Jeffers M.D.,FACP without loss of [address] consciousness, sequela E11.65 Type 2 diabetes mellitus with hyperglycemia E78.5 Hyperlipidemia, unspecified E03.9 Hypothyroidism, unspecified G47.00 Insomnia, unspecified I48.0 Paroxysmal atrial fibrillation Office Visit 01/15/2018 Orthopedic Martinez M 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 9:00a [facility] MD Rojas osteoarthritis of AT [place] knee Office Visit 12/17/2017 [facility] Kang Whittaker S06.4x0D Epidural hemorrhage 12:00p Medicine Eliezer Jeffers, w/o loss of Rd [place].DShey,FACP consciousness, subs encntr Z86.73 Prsnl hx of TIA (TIA), and cereb infrc w/o resid deficits E78.5 Hyperlipidemia, unspecified Z23 Encounter for immunization Office Visit 12/05/2017 [facility] Arambula, G45.9 Transient 7:00a Clinic cerebral ischemic attack, unspecified I10 Essential (primary) hypertension I48.91 Unspecified atrial fibrillation E78.5 Hyperlipidemia, unspecified Office Visit 12/05/2017 12:51p [facility] Deven Magana, R29.810 Facial weakness [facility] G45.9 Transient cerebral ischemic attack, unspecified E11.65 Type 2 diabetes mellitus with hyperglycemia Z79.4 care home (current) use of insulin Office Visit 12/04/2017 [facility] Arambula, G45.9 Transient 7:00a Clinic cerebral ischemic attack, unspecified I10 Essential (primary) hypertension I48.91 Unspecified atrial fibrillation E78.5 Hyperlipidemia, unspecified Z86.73 Prsnl hx of TIA (TIA), and cereb infrc w/o resid deficits Office Visit 12/03/2017 [facility] Travis Kevincony G45.9 Transient 12:50p Assoc,ella HERNANDEZ M.D. cerebral Hospitalists ischemic attack, unspecified Z79.4 care home (current) use of insulin E11.65 Type 2 diabetes mellitus with hyperglycemia Z86.73 Prsnl hx of TIA (TIA), and cereb infrc w/o resid deficits Plan of Treatment Future Appointment(s):08/26/2018 10:30 am - Wally You MD at [facility]03/26/2019 9:20 am - Tae Gilman M.D. at [facility] Ffsoatqb19/02/2019 - Nhung Ibarra, DOL21.9 Seborrheic dermatitis, unspecifiedNew Medication:Selsun Blue Dry Scalp 1 % - apply to scalp as shampoo ltcdhE13.1 Tinea unguiumNew Medication:Ciclopirox 8 % - apply topically twice a dayE03.9 Hypothyroidism, unspecified
--- OUTSIDE RECORDS SUMMARY | 2018-07-23 12:24 | XMS REPORT | Continuity of Care Document ---
:1935 External Reference #:[id number] Author Name Jarett Valadez Care Team Providers Name Role Phone Patient's Choice Primary Care Physician Unavailable Payers Date Identification Numbers Payment Provider Subscriber Policy Number: [id number] Medicare Pete John PayID: [id number] [address] [place] [address] Policy Number: [id number] [facility] Pete John PayID: [id number] [address] [place] [address] Advance Directives Description No Information Available Problems [...] Former Cigarette Smoker Unknown Smoking Status Reviewed: 06/26/18 Former Cigarette Smoker ETOH Use Denies alcohol use Tobacco Use Start: Unknown End: Patient is a former Unknown smoker Recreational Drug Use Denies Drug Use Exercise Type/Frequency 12/17/2017 Exercises rarely Allergies, Adverse Reactions, Alerts Date Description Reaction Status Severity Comments 12/17/2017 Shannon Urticaria Active Mild 12/17/2017 Iodine Active Severe hypothryroidsim 01/15/2018 Lantus Active Medications Medication Date Status Form Strength Qnty SIG Indications Ordering Provider Gabapentin 06/16 Active Capsules 300mg 180ca take one G62.9 oph ps cap in the Vito Tirado morning, 2 cap in the afternoon, and [...] 2.5mg 30uni 1 tab G47.00 Lesvia Sofia ts every MD night at bedtime Novolog Flexpen 01/23 Active Solution 100Unit/M 15ml 5-10 units Larry Whittaker /2018 Pen-Injec L [place], t pre-meal M.D.,FACP tid, sliding scale Metoprolol 01/23 Active Tablets 100mg 90tab take 1 Kang D. Succinate ER /2018 ER 24HR s tablet by Aury, mouth once M.D.,FACP a day Metoprolol 01/23 Active Tablets 25mg 90tab 1 by mouth Kang Whittaker Succinate ER 24HR s every day [place], with 100 M.D.,FACP mg tab Flector 12/17 Active Patches 1.3% 10uni apply 1 Kang Whittaker ts patch to [place], the skin M.D.,FACP two times daily as needed Oxycodone HCL 12/17 Active Tablets 5mg 90tab 1 tab by Tae Smith s mouth Vito Gilman every 6 hours as needed pain Tikosyn Active Capsules 500mcg 1 by mouth Unknown twice a day Synthroid Active Tablets 88mcg 2 tabs a day Vitamin B12 Active Tablets 1000mcg 1 by mouth Unknown / ER every day Vitamin D3 Ultra Active Capsules 5000Unit 1 by mouth Unknown Strength every day x 3 months Zyloprim Active Tablets 300mg one tab Unknown daily Vitamin E Active Capsules 400Unit 1 by mouth Unknown every day Fish Oil Active Capsules 500mg 180ca 1 by mouth Kang Whittaker ps twice a [place], M.D.,FACP Trulicity Active Solution 0.75mg/0. inject Pen-Injec 5ML 0.75mg t once a week Vitamin B1 Active Tablets 100mg 1 by mouth Unknown every day Testosterone Active Solution 100mg/ml 1 Unknown Cypionate /0000 milliliter s intramuscu lar q2 weeks code f Diphenoxylate Active Tablets 2.5-0.025 Unknown Hydrochloride/At /0000 mg ropine Sulfate Tamsulosin HCL Active Capsules 0.4mg 1 by mouth Unknown every day Lorazepam 02/10 Hx Tablets 1mg 14tab 2-1 tab Kang Whittaker s by mouth Aury, - every 8 M.D.,FACP 05/19 hours needed anxiety Alprazolam 01/23 Hx Tablets 0.5mg 20tab take 2-1 Kang Whittaker s tablet by Aury, - mouth in [facility]DShey,[facility] 02/10 evening needed Crestor 12/17 Hx Tablets 5mg 45tab take 04/01 Kang Whittaker s tablet by Aury, - mouth Tyler.Panfilo,[facility] 06/16 evening Aspir-81 12/17 Hx Tablets 81mg 30tab 1 by mouth Kang Whittaker /2017 DR jacobo every day Eliezer Jeffers M.D.,[facility] 06/16 Dexpak 10 Day 12/17 Hx TBPK 1.5mg pt reports Kang Whittaker (37) he is not Aury, - following Vito,[facility] 01/15 Metoprolol Hx Tablets 100mg 1 by mouth Unknown Succinate ER /0000 ER 24HR every day - 01/15 Dexpak 10 Day Hx TBPK 1.5mg pt reports Unknown /0000 (35) he is not - following 12/17 Synthroid Hx Tablets 75mcg 1 by mouth Unknown /0000 every day - with 88 05/26 Novolog / Hx Solution 100Unit/M 11-12 Unknown /0000 L units - times per 01/15 day prn Metoprolol Hx Tablets 125mg take 1 Unknown Tartrate [...] Provider Depomedrol Administered Injection Martinez M 40MG Marianne Xie MD Depomedrol Administered Injection Martinez M 40MG 019 MD Rojas Celestone 3 mg Administered Injection Martinez M and 3mg 018 MD Rojas Celestone 3 mg Administered Injection Martinez M and 3mg 018 MD Rojas Immunizations CPT Code Status Date Vaccine Lot # [id number] Given 12/18/2017 Pneumococcal Conjugate Vaccine 13 Valent For Intramuscular Use 06415 Given 12/17/2017 Influenza Virus Vaccine, Quadrivalent, Split, [id number] Preservative Free Vital Signs Date Vital Result Comment 06/26/2018 9:12am Height 67 inches 5'7" Weight [...] Result H/L Range Note Laboratory test 01/23/2018 [facility] House Hemoglobin A1c 7.5 High 5-7 finding Lipid Profile 01/15/2018 [facility] Triglycerides 218 mg/dL 1 (Trig/Chol/HDL) [address] [place] [address] [phone] Cholesterol 166 mg/dL 2 HDL Cholesterol 32.3 mg/dL 3 LDL Cholesterol 90 mg/dL 4 Laboratory test 01/15/2018 [facility] TSH (Thyroid 1.53 mcIU/mL N 0.34-5.[address] [place]) [place] [address] [phone] Comp Metabolic 01/15/2018 [facility] Sodium 138 mmol/L N 135- [address] [place] [address] [phone] Potassium 4.4 mmol/L N 3.5-5.0 Chloride 101 [...] Egfr 84.1 >60 5 Laboratory test 01/15/2018 [facility] Uric Acid 4.7 mg/dL N 4.4-7.6 finding [address] [place] [address] [phone] 1 Desirable: <150 Borderline High: 150-199 High: [...] dialysis) Procedures Date Code Description Status 05/27/2018 52707 Nerve Conduction 05-06 Studies Completed 05/27/2018 39146 Needle Electromyography Complete, Five Or More Muscles Completed Studied 05/22/2018 05224 Inject/Drain Joint/Bursa Major W/O US Completed 01/15/2018 12826 Inject/Drain Joint/Bursa Major W/O US Completed 12/04/2017 82565 ECHO Transthorasic Realtime 2D W Doppler & Color Flow Hosp Completed Encounters Type Date Location Provider Dx Diagnosis Office Visit 06/16/2018 [facility] Nhung Ibarra, G47.00 Insomnia, 11:00a [facility] unspecified E11.42 Type 2 diabetes mellitus with diabetic polyneuropathy J45.909 Unspecified asthma, uncomplicated G89.4 Chronic pain syndrome Office Visit 05/27/2018 11:40a [facility] Deven Magana, G47.00 Insomnia , [facility] unspecified E11.42 Type 2 diabetes mellitus with diabetic polyneuropathy E78.5 Hyperlipidemia, unspecified M47.896 Other spondylosis, lumbar region G89.29 Other chronic pain I48.0 Paroxysmal atrial fibrillation J45.909 Unspecified asthma, uncomplicated Office Visit 04/28/2018 [facility] M47.896 Other 9:30a [facility] MD spondylosis, lumbar region M96.840 Postproc hematoma of a ms structure fol a ms sys procedure Office Visit 03/18/2018 [facility] Internal Tae Smith S06.4x0S Epidural hemorrhage 4:00p Daya Gilman M.D. without loss of [place] consciousness, sequela G89.29 Other chronic pain E11.42 Type 2 diabetes mellitus with diabetic polyneuropathy E03.9 Hypothyroidism, unspecified E78.5 Hyperlipidemia, unspecified Office Visit 01/23/2018 [facility] Internal Kang Whittaker S06.4x0S Epidural hemorrhage 2:00p Daya Jeffers M.D.,FACP without loss of [address] consciousness, sequela E11.65 Type 2 diabetes mellitus with hyperglycemia E78.5 Hyperlipidemia, unspecified E03.9 Hypothyroidism, unspecified G47.00 Insomnia, unspecified I48.0 Paroxysmal atrial fibrillation Office Visit 01/15/2018 [facility] Martinez M 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 AT [place] knee Office Visit 12/17/2017 [facility] Internal Kang Whittaker S06.4x0D Epidural hemorrhage 12:00p Daya Jeffers, w/o loss of Rd FabienDShey,FACP consciousness, subs encntr Z86.73 Prsnl hx of TIA (TIA), and cereb infrc w/o resid deficits E78.5 Hyperlipidemia, unspecified Z23 Encounter for immunization Office Visit 12/05/2017 [facility] Williams Arambula, G45.9 Transient 7:00a Clinic cerebral ischemic attack, unspecified I10 Essential (primary) hypertension I48.91 Unspecified atrial fibrillation E78.5 Hyperlipidemia, unspecified Office Visit 12/05/2017 12:51p [facility] Deven Magana, R29.810 Facial weakness Assoc, MD Hospitalists G45.9 Transient cerebral ischemic attack, unspecified E11.65 Type 2 diabetes mellitus with hyperglycemia Z79.4 group home (current) use of insulin Office Visit 12/04/2017 [facility] Williams Higginsnusrat, G45.9 Transient 7:00a Clinic MD cerebral ischemic attack, unspecified I10 Essential (primary) hypertension I48.91 Unspecified atrial fibrillation E78.5 Hyperlipidemia, unspecified Z86.73 Prsnl hx of TIA (TIA), and cereb infrc w/o resid deficits [facility]9 Transient 12:50p Assella beard II, M.D. cerebral Hospitalists ischemic attack, unspecified Z79.4 group home (current) use of insulin E11.65 Type 2 diabetes mellitus with hyperglycemia Z86.73 Prsnl hx of TIA (TIA), and cereb infrc w/o resid deficits Plan of Treatment Future Appointment(s):08/26/2018 10:30 am - Wally You MD at [facility]03/26/2019 9:20 am - Tae Gilman M.D. at [facility] Internal Medicine [facility]06/26/2018 - Wally You MDG62.9 Polyneuropathy, unspecifiedFollow up:RV in 2 cyilaeS78.896 Other spondylosis, lumbar yjvmjaI89.2 Cervicalgia
--- NOTE | 2018-07-23 13:17 | ED ---
Complex/Multi-Sys Presentation - HPI Summary HPI Summary: Pt is an 83 y/o M presenting to the ED with a chief complaint of double vision. He states he has fluid in his neck that has been bothering him for quite some time, but he most notably notes the diplopia that has been bothering him for a couple days. He reports a slight SINGLETON, neck pain, and pressure in his neck, Pt denies any fever, chills, erythema of eyes, sore throat, CP, SOB, cough , abdominal pain, N/V, dysuria, hematuria, edema, rash, trouble walking, or dizziness. He denies any weakness, paresthesias. No difficulty with speaking or walking. - History Of Current Complaint Chief Complaint: EDNeckComplaint Time Seen by Provider: 07/23/18 11:49 Hx Obtained From: Patient Onset/Duration: Sudden Onset, Lasting Days, Still Present Timing: Constant, Days Severity Currently: Mild Severity Initially: Mild Associated Signs And Symptoms: Positive: Headache, Other - diplopia. Negative: Dizziness, SOB, Cough, Chest Pain, Edema, Nausea, Vomiting, Abdominal Pain, Dysuria - Allergies/Home Medications Allergies/Adverse Reactions: Allergies Allergy/AdvReac Type Severity Reaction Status Date / Time Adhesive Tape Allergy Rash Verified 07/23/18 11:33 insulin glargine Allergy Swelling Verified 07/23/18 11:33 apixaban [From Eliquis] AdvReac bleed from Verified 07/23/18 11:33 the bones iodine AdvReac "thyroid Verified 07/23/18 11:33 storm" citris fruit Allergy Rash Uncoded 07/23/18 11:33 Home Medications: Home Medications Cyanocobalamin TAB* [Vitamin B12 TAB*] 1,000 mcg PO DAILY 07/23/18 [History Confirmed 07/23/18] Cyclobenzaprine (NF) [Cyclobenzaprine 5 MG (NF)] 5 mg PO Q8HR PRN 07/23/18 [ History Confirmed 07/23/18] Diclofenac 1.3% PATCH (NF) [Flector 1.3% PATCH (NF)] 1 patch TRANSDERM BID PRN 07/23/18 [History Confirmed 07/23/18] Insulin ASPART (NF) [Novolog (NF)] 5 - 10 unit SUBCUT TID AC 07/23/18 [History Confirmed 07/23/18] Levothyroxine TAB* [Synthroid TAB*] 176 mcg PO DAILY 07/23/18 [History Confirmed 07/23/18] Melatonin 2.5 mg PO QPM 07/23/18 [History Confirmed 07/23/18] Metoprolol Succinate XL TAB* [Toprol XL TAB*] 25 mg PO DAILY 07/23/18 [History Confirmed 07/23/18] Metoprolol Succinate XL TAB* [Toprol XL TAB*] 100 mg PO DAILY 07/23/18 [History Confirmed 07/23/18] [place]-3/Dha/Epa/Fish Oil [Fish Oil] 500 mg PO BID 07/23/18 [History Confirmed ] Thiamine TAB* [Vitamin B-1 TAB*] 100 mg PO DAILY 07/23/18 [History Confirmed ] Vitamin E CAP* 400 unit PO DAILY 07/23/18 [History Confirmed 07/23/18] PMH/Surg Hx/FS Hx/Imm Hx Previously Healthy: Yes Endocrine/Hematology History: Reports: Hx Diabetes - CONTROLLED Cardiovascular History: Reports: Hx Atrial Fibrillation Denies: Hx Hypertension, Hx Pacemaker/ICD Respiratory History: Denies: Hx Asthma History: Denies: Hx Renal Disease Musculoskeletal History: Reports: Hx Arthritis - osteoarthritis, Hx Back Problems, Hx Gout, Other Musculoskeletal History - spinal stenosis Sensory History: Reports: Hx Contacts or Glasses Denies: Hx Hearing Aid Opthamlomology History: Reports: Hx Contacts or Glasses Neurological History: Reports: Hx CVA, Other Neuro Impairments/Disorders - states "blood clot in his spine" Psychiatric History: Denies: Hx Eating Disorder, Hx Panic Disorder - Surgical History Surgery Procedure, Year, and Place: L4-L5 spine surgery. C3-C4 fusion. C6-C7 fusion. CARDIAC ABLATION. BOWEL RESECTION. NASAL SEPTUM. HERNIA REPAIRS. CATARACTS. CARPAL TUNNEL. TONSILECTOMY. APPENDECTOMY. BUNIONECTOMY Infectious Disease History: No Infectious Disease History: Denies: Traveled Outside the [place] in Last 30 Days - Family History Known Family History: Positive: Diabetes - Social History Alcohol Use: None Hx Substance Use: No Substance Use Type: Reports: None Hx Tobacco Use: Yes Smoking Status (MU): Former Smoker Review of Systems Negative: Fever, Chills Positive: Diplopia. Negative: Erythema Negative: Sore Throat Negative: Palpitations, Chest Pain Negative: Shortness Of Breath, Cough Negative: Abdominal Pain, Vomiting, Nausea Negative: dysuria, hematuria Positive: Myalgia. Negative: Edema, Other - trouble walking Negative: Rash Neurological: Negative - dizziness All Other Systems Reviewed And Are Negative: Yes Physical Exam - Summary Physical Exam Summary: Constitutional: Well-developed, Well-nourished, Alert. (-) Distressed Skin: Warm, Dry HENT: Normocephalic; Atraumatic Eyes: Conjunctiva normal Neck: Musculoskeletal ROM normal neck. (-) JVD, (-) Stridor, (-) Tracheal deviation Cardio: Rhythm regular, rate normal, Heart sounds normal; Intact distal pulses; The pedal pulses are 2+ and symmetric. Radial pulses are 2+ and symmetric. (-) Murmur Pulmonary/Chest wall: Effort normal. (-) Respiratory distress, (-) Wheezes, (-) Rales Abd: Soft. (-) Tenderness, (-) Distension, (-) Guarding, (-) Rebound Musculoskeletal: (-) Edema Lymph: (-) Cervical adenopathy Neuro: Alert, Oriented x3, Strength normal, Cranial nerves II-XII are grossly intact. (-) Dysmetria, (-) Nystagmus, (-) Ataxia by finger to nose testing, (-) Sensory deficit. Diplopia that does not resolve when covering other eye. Psych: Mood and affect Normal Triage Information Reviewed: Yes Vital Signs On Initial Exam: Initial Vitals Temp Pulse Resp BP Pulse Ox 98.6 F 82 16 113/64 98 07/23/18 11:25 07/23/18 11:25 07/23/18 11:25 07/23/18 11:25 07/23/18 11:25 Vital Signs Reviewed: Yes Diagnostics - Vital Signs Vital Signs Temp Pulse Resp BP Pulse Ox 07/23/18 11:25 98.6 F 82 16 113/64 98 - Laboratory Result Diagrams: 07/23/18 13:05 07/23/18 13:05 Lab Statement: Any lab studies that have been ordered have been reviewed, and results considered in the medical decision making process. - CT Brain CT CT Interpretation Completed By: Radiologist Summary of CT Findings: SMALL BILATERAL FRONTOPARIETAL SUBACUTE TO CHRONIC SUBDURAL HEMATOMA WITHOUT SHIFT. OTHERWISE, NO ACUTE INTRACRANIAL PATHOLOGY. ED physician has reviewed this report. C-spine CT CT Interpretation Completed By: Radiologist Summary of CT Findings: No fracture of the cervical spine is noted. There is fusion of C3-C4. Degenerative disc disease at C4-C5 and C6-C7. No fractures identified. Nuchal calcifications are noted posterior to C4-C6. ED physician has reviewed this report. - EKG 1313 Cardiac Rate: NL - 77bpm EKG Rhythm: Sinus Rhythm ST Segment: Normal Ectopy: None Summary of EKG Findings: EKG at 1313 shows NSR at 77bpm, no STEMI and no acute changes. Re-Evaluation - Re-Evaluation First Eval Re-Evaluation Time: 15:10 Change: Improved Complex Multi-Symp Course/Dx Course Of Treatment: Pt is an 83 y/o M presenting to the ED with a chief complaint of double vision. He states he has fluid in his neck that has been bothering him for quite some time, but he most notably notes the diplopia that has been bothering him for a couple days. He reports a slight SINGLETON, neck pain, and pressure in his neck, Pt denies any fever, chills, erythema of eyes, sore throat, CP, SOB, cough, abdominal pain, N/V, dysuria, hematuria, edema, rash, trouble walking, or dizziness. C-spine CT shows: No fracture of the cervical spine is noted. There is fusion of C3-C4. Degenerative disc disease at C4-C5 and C6-C7. No fractures identified. Nuchal calcifications are noted posterior to C4-C6. Brain CT shows: SMALL BILATERAL FRONTOPARIETAL SUBACUTE TO CHRONIC SUBDURAL HEMATOMA WITHOUT SHIFT. OTHERWISE, NO ACUTE INTRACRANIAL PATHOLOGY. EKG at 1313 shows NSR at 77bpm, no STEMI and no acute changes. The patient has known bipolar disorder, various history he has something of a flight of ideas. He does not appear psychotic, he appears safe, no self-harm, or suicidality. He told the neurologist who consulted on that he has had diplopia for over a year. Diplopia that does not resolve with covering one eye is not anatomic and does not follow any particular pathologic pattern. The neurologist, Dr. Lawrence, saw him in the emergency department. Refer to his consultation note. Recommended follow-up with Dr. Nunes. His stated chief complaint to the neurologist was his neck pain. The patient has no constitutional symptoms, he has full range of motion of his neck, I do not suspect meningitis, was no meningismus. There is been no trauma. His subdural hematomas are quite old, there's been no recent trauma. I reviewed an MRI report from last week which was performed at [facility]. The patient did have epidural fluid, no abscess. He was told by spine surgeon Dr. Silva this is likely related to his resolved lumbar spinal epidural hematoma. The patient is nontoxic appearing. He has no neurologic deficits. There are no signs of nerve compression. Supportive management with ketorolac oral tablets. Heat will also be recommended. - Diagnoses Provider Diagnoses: Diplopia, Degenerative joint disease of cervical spine, Chronic intracranial subdural hematoma - Physician Notifications Discussed Care Of Patient With: Charlie Tirado Instructed by Provider To: Have Pt Call For Appt. Discharge - Sign-Out/Discharge Documenting (check all that apply): Patient Departure Patient Received Moderate/Deep Sedation with Procedure: No - Discharge Plan Condition: Stable Disposition: HOME Prescriptions: Ketorolac TAB * [Toradol TAB *] 10 mg PO Q6H PRN #12 tab PRN Reason: Pain - Severe Patient Education Materials: Diplopia (ED), Degenerative Disc Disease (ED) Referrals: Deven Magana MD [Medical Doctor] - 2 Days Williams Arambula MD [Medical Doctor] - 1 Week Gurwinder Weber MD [Medical Doctor] - 2 Days Additional Instructions: Your scans are normal. The neurologist evaluated you did not feel he had a neurologic emergency. Your scans did show significant arthritis in your neck. - Attestation Statements Document Initiated by Scribe: Yes Documenting Scribe: Dayana Lee Provider For Whom Alessandro is Documenting (Include Credential): Ez Nettles MD. Scribe Attestation: Heather, Dayana Lee, scribed for Ez eNttles MD. on 07/23/18 at 1552. Status of Scribe Document: Ready
[2018-07-23 13:20] LABS: ABS Basophils 0 10^3/ul (0-0.2); ABS Eosinophils 0.1 10^3/ul (0-0.6); ABS Lymphocytes 2.1 10^3/ul (1.0-4.8); ABS Monocytes 0.4 10^3/ul (0-0.8); ABS Neutrophils 3.8 10^3/ul (1.5-7.7); ABS Nucleated RBC 0 10^3/ul; Eosinophil % 1.8 %; Hematocrit 51 % (36-46); Hemoglobin 16.5 g/dL (14.0-18.0); Lymphocyte % 32.9 %; Mean Corpuscular HGB Conc 33 g/dL (31-36); Mean Corpuscular Hemoglobin 28 pg (27-31); Mean Corpuscular Volume 87 fL (80-94); Mean Platelet Volume 8.3 fL (7.4-10.4); Nucleated Red Blood Cells % 0.4; Platelet Count 175 10^3/uL (150-450); Red Blood Count 5.88 10^6 /uL (4.18-5.48); Red Cell Distribution Width 15 % (10.5-15); White Blood Count 6.5 10^3/uL (3.5-10.8)
[2018-07-23 13:39] LABS: Troponin I 0.01 ng/mL (<0.04)
[2018-07-23 13:57] LABS: Albumin 3.7 g/dL (3.2-5.2); Albumin/Globulin Ratio 1.4 (1-3); BUN/Creatinine Ratio 16.7 (8-20); Calcium 8.7 mg/dL (8.6-10.3); EGFR Non-African American 75.2 (>60); Globulin 2.7 g/dL (2-4); Potassium 4.2 mmol/L (3.5-5.0); Total Bilirubin 0.4 mg/dL (0.2-1.0); Total Protein 6.4 g/dL (6.4-8.9)
--- NOTE | 2018-07-23 20:17 | CONS ---
CONSULTATION REPORT: DATE OF CONSULT: 07/23/18 LOCATION: Currently in ED bed 7. REASON FOR CONSULTATION: Double vision. HISTORY OF PRESENT ILLNESS: Mr. 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 He was evaluated in 2014 for an ischemic stroke with residual left hemiparesis. He has been seen by Dr. Arambula in November 2017 as well as in clinic recently in May 2018. At that time, he was seen for a TIA in the right MCA vascular distribution. MRI of the brain showed no acute infarct. MRI of the head was normal. It was noted at the time of his last admission that he had transient left upper extremity weakness that had resolved. He was asymptomatic at the time of his evaluation and was felt not to be a candidate for any intervention. He also complained of a tremor at that time which were action tremors involving both hands, starting in November 2017. He tells me about an epidural hematoma he developed after neck injections and that since that time, he has had excruciating neck pain. When I further questioned him, he states that the reason that he is here is not because of double vision but because of his chronic neck pain. He states that the neck pain is severe in nature. It does radiate down his left arm at times. When I asked him about the double vision, he states that this has been ongoing for over a year. He notes no new focal numbness, tingling, or weakness. No new vision changes, speech difficulty , swallowing difficulties. No headaches. He otherwise feels that he is in his usual state of health, except for the severe neck pain that he has. He apparently follows with Dr. You as well for a history of arachnoid cyst and significant lumbar canal stenosis. In addition, he had an EMG/nerve conduction study of the lower extremities that showed peripheral neuropathy and multiple chronic lumbosacral radiculopathies. The patient has been instructed to take blood thinners in the past, but he refused due to what he described as bleeding in his joints, though he is not on anything for his chronic atrial fibrillation. PAST MEDICAL HISTORY: As noted above: 1. Type 2 diabetes. 2. Diabetic polyneuropathy. 3. Hypertension. 4. Cervical and lumbar spine disease, status post ACDF. 5. Former tobacco use. 6. Ischemic stroke in 2015. MEDICATIONS: Were reviewed, include: 1. Cyclobenzaprine. 2. Vitamin E. 3. Testosterone. 4. Thiamine. 5. Dulaglutide. 6. [place]-3. 7. Cyanocobalamin. 8. Allopurinol. 9. Levothyroxine. 10. Oxycodone. 11. Dofetilide. 12. Diclofenac patch. 13. Rosuvastatin. 14. Aspirin 81 mg daily. 15. Metoprolol. 16. Insulin. 17. Melatonin. 18. Ketorolac. ALLERGIES: To CITRUS, IODINE, and LANTUS. FAMILY HISTORY: Noncontributory. SOCIAL HISTORY: He lives with his . No tobacco use, although he is a former smoker. No drug use reported. No alcohol use reported. REVIEW OF SYSTEMS: Review of systems in 14-organ systems as noted above; otherwise, negative. PHYSICAL EXAMINATION: Vital Signs: Temp of 98.6, pulse is 82, respiratory rate of 16, O2 sat is 98%, blood pressure 113/64. In general, he is a well- nourished, well- developed gentleman, somewhat disheveled, lying in his hospital bed. He is pleasant, well dressed, well groomed. HEENT: He is normocephalic, atraumatic. Sclerae are anicteric. Mucous membranes are moist. Oropharynx is clear. Nares are patent. Neck is supple. No thyromegaly. No carotid bruits. Chest: Clear to auscultation bilaterally. Cardiovascular: Regular rate and rhythm without murmurs. Abdomen is nontender, obese. Extremities: No significant cyanosis appreciated. Skin is warm and dry. Neurologic exam: He is awake, alert, oriented x3. His speech is fluent. There is no dysarthria. Repetition is intact. Recall of recent and remote events is intact. Vocabulary is intact. His mood is dysthymic. Affect, mood congruent. Cranial nerves: Pupils are equal, round, and reactive to light and accommodation. Extraocular muscles appear intact. There is no nystagmus. He does note double vision in all visual lincoln with both eyes open. He notes double vision in all visual lincoln with his left eye closed and he notes double vision with his right closed as well. He did have 1 area in his central vision with his right eye closed that was normal, but otherwise notes double vision throughout with either eye closed or both open. Visual lincoln appear to be full. Face is symmetric. Tongue is midline. Hearing is intact. Palate rises symmetrically. His motor exam, 5/5 throughout with good tone and bulk and no drift. Sensory exam is diminished to light touch and pinprick in the lower extremities throughout, some light touch and pinprick in the upper extremities. [id number], rapid alternating movements are intact. DTRs are 1+ and symmetric in the upper and lower extremities. Gait: He is able to walk with a mild limp, but steady. No balance difficulties. DIAGNOSTIC STUDIES/LAB DATA: He did have a CT scan on this visit of his brain, which showed no acute intracranial abnormality. He has a small bilateral frontoparietal subacute to chronic subdural hematoma without shift; otherwise, no acute intracranial pathology. Brain MRI from 12/04/17 states appropriate chronic changes without evidence of acute infarct, mass, mass effect, or other acute intracranial abnormality. CT scan of the brain from 12/03/17 shows no acute intracranial pathology. Cervical spine CT shows no fracture of the cervical spine, fusion of C3-4, degenerative disk disease at C4-5 and C6-7, no fractures identified, nuchal calcifications are noted posterior to C4 and C6. Lab reports include CBC with diff with a RBC of 5.88, hematocrit of 51. INR of 0.94, PTT of 30.8. Complete metabolic profile with a glucose of 218. Vitamin B12 of 1145. TSH of 0.96. ASSESSMENT AND PLAN: Mr. John is an 83-year-old gentleman with a history of prior stroke with no significant residual, atrial fibrillation, hypertension , hyperlipidemia, diabetes, cervical and lumbar spine disease, previous tobacco use who presents to the hospital today complaining of severe neck pain, which he states is chronic in nature, but [id number] now. He also noted to the ED doctor that he has had double vision, but when I questioned him further, he states that the double vision has been ongoing for over a year. He also has double vision that is difficult to explain anatomically. He had double vision with his eyes open. He had double vision with the left eye closed and he had double vision with the right eye closed. He does have what appeared to be chronic subdural hematomas in the frontal region, but denies any headache. No recent falls and he does follow with neurosurgery for his history of neck and back problems. At this point, the patient is presenting with significant neck pain. The double vision is chronic in nature. I see no immediate acute neurologic issues. I do not see any need for any further workup or treatment from a neurology standpoint. I would defer management of his neck pain to either pain management or his neurosurgeon. As far as his chronic subdural hematomas are concerned, I am unclear as to the etiology. I would defer to neurosurgery regarding management, but I do not think that these are causing any active symptoms at this time. From a neurology standpoint, I think that it is okay for him to be discharged home, but I defer to the ER doctor regarding ultimate disposition. Thank you for the opportunity to participate in the care of this very interesting patient. [id number]/[facility] #: [id number] LEONEL
== END | disposition home or self-care (01) ==
LOC: ED 11:23
DX: H53.2 Diplopia (principal); M47.892 Other spondylosis, cervical region; I62.03 Nontraumatic chronic subdural hemorrhage; Q76.49 Other congenital malformations of spine, not associated with scoliosis; I48.91 Unspecified atrial fibrillation; E11.9 Type 2 diabetes mellitus without complications; M19.90 Unspecified osteoarthritis, unspecified site; Z88.8 Allergy status to other drugs, medicaments and biological substances; Z91.048 Other nonmedicinal substance allergy status; Z79.899 Other long term (current) drug therapy; Z79.890 Hormone replacement therapy; Z86.73 Personal history of transient ischemic attack (TIA), and cerebral infarction without residual deficits; Z86.718 Personal history of other venous thrombosis and embolism; Z87.891 Personal history of nicotine dependence
CPT/HCPCS: 36415; 70450; 72125; 80053; 83605; 84484; 85025; 93005; 96374; 99282; J1885

== ENCOUNTER 2018-08-11 09:20 | Emergency (ER) | payer MEDICARE ==
[2018-08-11] MEDS ORDERED: Dexamethasone IV* 4 MG/ML 1 ML (4 MG) IV SLOW PU ONE (11:01)
[2018-08-11] MEDS ORDERED: Ketorolac INJ* 30 MG/ML 1 ML VIAL IV PUSH ONE (11:01)
--- NOTE | 2018-08-11 11:03 | ED ---
Complex/Multi-Sys Presentation - HPI Summary HPI Summary: Patient is a 83 y/o M presenting to ED with complaints of diffuse joint pain. He states, "I have gout everywhere". Patient has Hx of same and reports taking his prescribed medications, which include oxycodone and an anti-inflammatory medication. Patient reports Sx have been present for a "long time" but decided to come to the ED due to the recent increase in severity of his pain. He states that the pain is most severe at left foot. Patient has come to ED for similar chronic pain issues previously, patient states he has received Toradol and decadron for his pain in the past with relief of Sx. PMHx of diabetes, afib, arthritis, gout, spinal stenosis, CVA. PSHx of L4-L5 spine surgery, C3-C4 and C6 -C7 fusion, cardiac ablation, bowel resection, nasal septum surgery, hernia repairs, cataract surgery, carpal tunnel surgery, tonsillectomy, appendectomy, bunionectomy. FMHx of diabetes. Patient is a former smoker, he denies alcohol and substance usage. On triage, pain is rated 10/10, nothing is noted to aggravate/alleviate Sx. Home medications and allergies are reviewed. - History Of Current Complaint Chief Complaint: EDGeneral Time Seen by Provider: 08/11/18 10:54 Hx Obtained From: Patient Onset/Duration: Lasting Weeks, Still Present Timing: Constant Severity Currently: Severe Severity Initially: Moderate Location: Pain At: - diffuse joint pain, worst at left foot Associated Signs And Symptoms: Positive: Other - diffuse joint pain, worst at left foot - Allergies/Home Medications Allergies/Adverse Reactions: Allergies Allergy/AdvReac Type Severity Reaction Status Date / Time Adhesive Tape Allergy Rash Verified 08/11/18 09:27 [place] And Derivatives Allergy Rash Verified 08/11/18 09:31 insulin glargine Allergy Swelling Verified 08/11/18 09:27 apixaban [From Eliquis] AdvReac bleed from Verified 08/11/18 09:27 the bones iodine AdvReac "thyroid Verified 08/11/18 09:27 storm" PMH/Surg Hx/FS Hx/Imm Hx Endocrine/Hematology History: Reports: Hx Diabetes - CONTROLLED Cardiovascular History: Reports: Hx Atrial Fibrillation Denies: Hx Hypertension, Hx Pacemaker/ICD Respiratory History: Denies: Hx Asthma History: Denies: Hx Renal Disease Musculoskeletal History: Reports: Hx Arthritis - osteoarthritis, Hx Back Problems, Hx Gout, Other Musculoskeletal History - spinal stenosis Sensory History: Reports: Hx Contacts or Glasses Denies: Hx Hearing Aid Opthamlomology History: Reports: Hx Contacts or Glasses Neurological History: Reports: Hx CVA, Other Neuro Impairments/Disorders - states "blood clot in his spine" Psychiatric History: Denies: Hx Eating Disorder, Hx Panic Disorder - Surgical History Surgery Procedure, Year, and Place: L4-L5 spine surgery. C3-C4 fusion. C6-C7 fusion. CARDIAC ABLATION. BOWEL RESECTION. NASAL SEPTUM. HERNIA REPAIRS. CATARACTS. CARPAL TUNNEL. TONSILLECTOMY. APPENDECTOMY. BUNIONECTOMY Infectious Disease History: No Infectious Disease History: Denies: Traveled Outside the [place] in Last 30 Days - Family History Known Family History: Positive: Diabetes - Social History Alcohol Use: None Hx Substance Use: No Substance Use Type: Reports: None Hx Tobacco Use: Yes Smoking Status (MU): Former Smoker Review of Systems Negative: Fever - NEGATIVE - ON VITALS, TEMP IS 97.7 F Musculoskeletal: Other - POSITIVE - DIFFUSE JOINT PAIN, WORST AT LEFT FOOT All Other Systems Reviewed And Are Negative: Yes Physical Exam - Summary Physical Exam Summary: Appearance: Well-appearing, Well-nourished, lying in bed comfortable Skin: Warm, dry, no obvious rash Eyes: sclera anicteric, no conjunctival pallor ENT: mucous membranes moist Neck: deferred Respiratory: No signs of respiratory distress Cardiovascular: Appears well perfused, pulses are nml Abdomen: deferred Musculoskeletal: Moving all 4 extremities without obvious discomfort, left foot does not show any signs of acute inflammation Neurological: Awake and alert, mentation is normal, speech is fluent and appropriate Psychiatric: affect is normal, does not appear anxious or depressed Triage Information Reviewed: Yes Vital Signs On Initial Exam: Initial Vitals Temp Pulse Resp BP Pulse Ox 97.7 F 92 18 129/85 97 08/11/18 09:24 08/11/18 09:24 08/11/18 09:24 08/11/18 09:24 08/11/18 09:24 Vital Signs Reviewed: Yes Diagnostics - Vital Signs Vital Signs Temp Pulse Resp BP Pulse Ox 08/11/18 09:24 97.7 F 92 18 129/85 97 - Laboratory Lab Statement: Any lab studies that have been ordered have been reviewed, and results considered in the medical decision making process. Complex Multi-Symp Course/Dx Course Of Treatment: Patient is a 83 y/o M presenting to ED with complaints of diffuse joint pain. He states, "I have gout everywhere". Patient has Hx of same and reports taking his prescribed medications, which include oxycodone and an anti-inflammatory medication. Patient reports Sx have been present for a "long time" but decided to come to the ED due to the recent increase in severity of his pain. He states that the pain is most severe at left foot. On physical exam , patient is moving all 4 extremities without obvious discomfort, left foot does not show any signs of acute inflammation. During ED course, patient received toradol 10 mg IV PUSH ED ONCE ONE and Decadron 4 mg IV SLOW PU ED ONCE ONE. Patient reported relief in Sx after receiving these medications, patient is agreeable with discharge to home. - Diagnoses Provider Diagnoses: Chronic pain syndrome Discharge - Sign-Out/Discharge Documenting (check all that apply): Patient Departure - discharge Patient Received Moderate/Deep Sedation with Procedure: No - Discharge Plan Condition: Stable Disposition: HOME Prescriptions: Dexamethasone TAB* [Decadron TAB*] 4 mg PO DAILY #6 tab Patient Education Materials: Chronic Pain (ED) Referrals: Roldan Alonzo MD [Medical Doctor] - No Primary Care Phys,NOPCP [Primary Care Provider] - Additional Instructions: You might try contacting the Pain Clinic that is run out of the hospital. - Billing Disposition and Condition Condition: STABLE Disposition: Home - Attestation Statements Document Initiated by Alessandro: Yes Documenting lAessandro: LATOYA BASSETT Provider For Whom Alessandro is Documenting (Include Credential): RONAN HYMAN MD Scribcarolin Attestation: LATOYA Romero, scribed for RONAN HYMAN MD on 08/11/18 at 2049. Scribe Documentation Reviewed: Yes Provider Attestation: The documentation as recorded by the LATOYA ventura accurately reflects the service I personally performed and the decisions made by , RONAN HYMAN MD Status of Scribe Document: Viewed
[2018-08-11 11:41] VITALS: BP 120/82
== END 2018-08-11 11:41 | disposition home or self-care (01) ==
LOC: ED 09:20
DX: G89.4 Chronic pain syndrome (principal); E11.9 Type 2 diabetes mellitus without complications; I48.91 Unspecified atrial fibrillation; Z98.1 Arthrodesis status; Z87.891 Personal history of nicotine dependence
CPT/HCPCS: 96374; 96375; 99282; J1100; J1885

== ENCOUNTER 2018-09-02 09:17 | Emergency (ER) | payer MEDICARE ==
[2018-09-02] MEDS ORDERED: Ketorolac INJ* 60 MG/2 ML VIAL IM ONE (09:42)
--- NOTE | 2018-09-02 09:57 | ED ---
Skin Complaint - HPI Summary HPI Summary: Patient is an 83-year-old male who presents to the ED with "gout all over." He is requesting a CT scan to look for the calcifications. He states he has a little with [facility], but they stated they would see him back in 6 months. He states he's been here at 3 times to the ED for same. He is usually given dexamethasone as well as Toradol for relief as he is currently on pain medication, oxycodone as well as anti-inflammatories, meloxicam and Toradol at home. He has not taken his Toradol today. He states he improves with IV Toradol as well as IV dexamethasone. However, he states he would only like the IV Toradol today and would like to obtain a CAT scan. He is endorsing pain all over, and erythema. He states he continues to eat red meat and salt as "my body needs it." - History of Current Complaint Chief Complaint: EDGeneral Time Seen by Provider: 09/02/18 09:25 Stated Complaint: KNEE/TOE PROBLEM/GOUT PER PT Hx Obtained From: Patient Onset/Duration: Still Present Timing: Constant Onset Severity: Moderate Current Severity: Moderate Pain Intensity: 8 Pain Scale Used: 0-10 Numeric Skin Location: Foot Aggravating Symptom(s): Nothing Alleviating Symptom(s): Nothing Associated Signs & Symptoms: Negative - Additional Pertinent History Primary Care Physician: [id number] - Allergy/Home Medications Allergies/Adverse Reactions: Allergies Allergy/AdvReac Type Severity Reaction Status Date / Time Adhesive Tape Allergy Rash Verified 09/02/18 09:28 [place] And Derivatives Allergy Rash Verified 09/02/18 09:28 insulin glargine Allergy Swelling Verified 09/02/18 09:28 apixaban [From Eliquis] AdvReac bleed from Verified 09/02/18 09:28 the bones iodine AdvReac "thyroid Verified 09/02/18 09:28 storm" PMH/Surg Hx/FS Hx/Imm Hx Previously Healthy: Yes Endocrine/Hematology History: Reports: Hx Diabetes - CONTROLLED Cardiovascular History: Reports: Hx Atrial Fibrillation Denies: Hx Hypertension, Hx Pacemaker/ICD Respiratory History: Denies: Hx Asthma History: Denies: Hx Renal Disease Musculoskeletal History: Reports: Hx Arthritis - osteoarthritis, Hx Back Problems, Hx Gout, Other Musculoskeletal History - spinal stenosis Sensory History: Reports: Hx Contacts or Glasses Denies: Hx Hearing Aid Opthamlomology History: Reports: Hx Contacts or Glasses Neurological History: Reports: Hx CVA, Other Neuro Impairments/Disorders - states "blood clot in his spine" Psychiatric History: Denies: Hx Eating Disorder, Hx Panic Disorder - Surgical History Surgery Procedure, Year, and Place: L4-L5 spine surgery. C3-C4 fusion. C6-C7 fusion. CARDIAC ABLATION. BOWEL RESECTION & SEVERAL ABDOMINAL SURGERIES FOR DIVERTICULITIS. NASAL SEPTUM. HERNIA REPAIRS. CATARACTS. CARPAL TUNNEL. TONSILLECTOMY. APPENDECTOMY. BUNIONECTOMY - Immunization History Hx Pertussis Vaccination: No Immunizations Up to Date: Yes Infectious Disease History: No Infectious Disease History: Denies: Traveled Outside the [place] in Last 30 Days - Family History Known Family History: Positive: Diabetes - Social History Occupation: Unemployed Lives: With Family Alcohol Use: None Hx Substance Use: No Substance Use Type: Reports: None Hx Tobacco Use: Yes Smoking Status (MU): Former Smoker Review of Systems Constitutional: Negative Negative: Fever, Chills, Fatigue, Skin Diaphoresis Negative: Palpitations, Chest Pain Negative: Shortness Of Breath, Cough Genitourinary: Negative Positive: no symptoms reported, see HPI Negative: Arthralgia, Myalgia Positive: Other - bilateral foot pain/erythema to the bunion area of the feet - no warmth Neurological: Negative All Other Systems Reviewed And Are Negative: Yes Physical Exam Triage Information Reviewed: Yes Vital Signs On Initial Exam: Initial Vitals Temp Pulse Resp BP Pulse Ox 98.2 F 88 16 106/80 97 09/02/18 09:24 09/02/18 09:24 09/02/18 09:24 09/02/18 09:24 09/02/18 09:24 Vital Signs Reviewed: Yes Appearance: Positive: Well-Appearing, Well-Nourished Skin: Positive: Skin Color Reflects Adequate Perfusion, Other - bilateral foot pain/erythema to the bunion area of the feet - no warmth Head/Face: Positive: Normal Head/Face Inspection Eyes: Positive: EOMI, Conjunctiva Clear Neck: Positive: Supple Respiratory/Lung Sounds: Positive: Clear to Auscultation, Breath Sounds Present Cardiovascular: Positive: RRR, Pulses are Symmetrical in both Upper and Lower Extremities Musculoskeletal: Positive: Other - bilateral foot pain/erythema to the bunion area of the feet - no warmth Neurological: Positive: Speech Normal Psychiatric: Positive: Affect/Mood Appropriate Diagnostics - Vital Signs Vital Signs Temp Pulse Resp BP Pulse Ox 09/02/18 09:24 98.2 F 88 16 106/80 97 - Laboratory Lab Statement: Any lab studies that have been ordered have been reviewed, and results considered in the medical decision making process. Course/Dx - Course Course Of Treatment: On arrival into the ED, the patient is endorsing diffuse pain related to his chronic gout. He states his symptoms are no worse than usual and most notably to the bilateral large toes and bunion area. He is also endorsing some pain to the knees. Currently on oxycodone and meloxicam. Takes Toradol occasionally and has a prescription for this. He states he has not had meloxicam or Toradol today as when he comes to the ED, he is usually given IM or IV Toradol with good relief. He is also usually given dexamethasone, but is refusing this today. Currently has a stimulator to his legs applied as well. Physical exam, there is erythema to the bunion area of the bilateral feet. He states is not worse than normal. His stated a CT scan would be completed as an outpatient by the physician who would treat (operativaly per patient) . His stated I would be willing to give him the Toradol, but would be unable to do a CT scan of his bilateral feet to see stable gout manifestations which could easily be completed by his PCP. He agrees with this plan and discharged. He will continue all his home medications as prescribed. He is afebrile and otherwise signs are stable. - Diagnoses Provider Diagnoses: Gout flare Discharge - Sign-Out/Discharge Documenting (check all that apply): Patient Departure Patient Received Moderate/Deep Sedation with Procedure: No - Discharge Plan Condition: Stable Disposition: HOME Patient Education Materials: Gout (ED) Referrals: Nhung Ibarra DO [Primary Care Provider] - Additional Instructions: Please continue all your medications from home - Billing Disposition and Condition Condition: STABLE Disposition: Home - Attestation Statements Provider Attestation: I was available for consult. This patient was seen by the [facility]. The patient was not presented to, seen by, or examined by me. -Racheal
[2018-09-02 10:24] VITALS: BP 102/72
--- OUTSIDE RECORDS SUMMARY | 2018-09-02 10:27 | XMS REPORT | Continuity of Care Document ---
:1935 External Reference #:[id number] Author Name Aimee Morse Care Team Providers Name Role Phone Nhung Ibarra DO Primary Care Physician Unavailable Payers Date Identification Numbers Payment Provider Subscriber Policy Number: [id number] Medicare Pete John PayID: [id number] [address] [place] [address] Policy Number: [id number] [facility] Pete John PayID: [id number] [address] [place] [address] Advance Directives Description No Information Available Problems Active Problems Provider Date Spinal epidural hematoma Kang Jeffers M.D.,FACP Onset: 12/17/2017 Note: post injection Paroxysmal atrial fibrillation Kang Jeffers M.D.,FACP Onset: 12/17/2017 Type 2 diabetes mellitus Kang Jeffers M.D.,FACP Onset: 12/17/2017 Carotid artery stenosis Kang Jeffers M.D.,FACP Onset: 12/17/2017 Note: bilat <50% Hypothyroidism Kang Jeffers M.D.,FACP Onset: 12/17/2017 Gout Kang Jeffers M.D.,FACP Onset: 12/17/2017 Insomnia Kang Jeffers M.D.,FACP Onset: 01/23/2018 Anxiety state Deven Magana MD Onset: 05/27/2018 Hyperlipidemia Deven Magana MD Onset: 05/27/2018 Lumbar spondylosis Deven Magana MD Onset: 05/27/2018 Chronic pain Deven Magana MD Onset: 05/27/2018 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 Urticaria Mild 12/17/2017 Iodine Severe hypothryroidsim 12/17/2017 Lantus 01/15/2018 Medications Active Medications SIG Qnty Indications Ordering Provider Date [facility] Gauze Apply once daily 50units Deven aMgana MD 08/06/2018 2"X2" for toenails Pads infection/destructi on Ciclopirox Olamine apply to affected 90gm Nhung Ibarra, 07/01/2018 area daily as DO 0.77% Cream needed S[place] Blue Dry apply to scalp as 1bottle L21.9 Nhung Ibarra, 06/30/2018 Scalp shampoo daily DO 1% Shampoo Ciclopirox apply topically 6.600ml B35.1 Nhung Ibarra, 06/30/2018 8% twice a day DO Solution Gabapentin take one cap in the 180caps G62.9 Christopher Celestino, 06/16/2018 300mg morning, 2 cap in M.D. Capsules the afternoon, and 2 cap at night. then increase to 2 cap three times a day after one week. Breo Ellipta one inhalation 60units J45.909 Nhung Ibarra, 06/16/2018 daily DO 100-25mcg/Inh Aerosol Melatonin Gummies 1 tab every night 30units G47.00 Deven Magana MD 2018 at bedtime 2.5mg Chewtabs Metoprolol 1 by mouth every 90tabs Kang Whittaker 01/23/2018 Succinate ER day with 100 mg tab Vito Jeffers,FACP 25mg Tablets ER 24HR Metoprolol take 1 tablet by 90tabs Kang Whittaker 01/23/2018 Succinate ER mouth once a day Vito Jeffers,FACP 100mg Tablets ER 24HR Novolog Flexpen 5-10 units SC 15ml Kang Whittaker 01/23/2018 pre-meal tiAury hale M.D.,FACP 100Unit/ML Solution sliding scale Pen-Inject Flector apply 1 patch to 10units Kang Whittaker 12/17/2017 1.3% the skin two times Vito Jeffers,FACP Patches daily as needed Oxycodone HCL 1 tab by mouth 90tabs Stephanie Enriquez, 12/17/2017 5mg every 6 hours as M.DShey Tablets needed pain Tamsulosin HCL 1 by mouth every Unknown day 0.4mg Capsules Diphenoxylate Unknown Hydrochloride/Atrop ine Sulfate 2.5-0.025mg Tablets Testosterone 1 milliliters Unknown Cypionate intramuscular q2 100mg/ml weeks code f Solution Vitamin B1 1 by mouth every Unknown 100mg day Tablets Trulicity inject 0.75mg once Unknown a week 0.75mg/0.5ML Solution Pen-Inject Fish Oil 1 by mouth twice a 180caps Kang Whittaker 500mg day Vito Jeffers,FACP Capsules Vitamin E 1 by mouth every Unknown 400Unit day Capsules Zyloprim one tab daily Unknown 300mg Tablets Vitamin D3 Ultra 1 by mouth every Unknown Strength day x 3 months 5000Unit Capsules Vitamin B12 1 by mouth every Unknown 1000mcg day Tablets ER Synthroid 2 tabs a day Unknown 88mcg Tablets Tikosyn 1 by mouth twice a Unknown 500mcg day Capsules History Medications Ketorolac Tromethamine inject Im once a 25ml G89.4 Nhung Ibarra, 2018 - month DO 07/06/2018 30mg/ml Solution Lorazepam 1/2-1 tab by 14tabs Kang Whittaker 02/10/2018 - 1mg Tablets mouth every 8 Vito Jeffers,[facility] 05/19/2018 hours as needed anxiety Alprazolam take 1/2-1 tablet 20tabs Kang Whittaker 01/23/2018 - 0.5mg Tablets by mouth in Vito Jeffers,[facility] 02/10/2018 evening as needed Dexpak 10 Day pt reports he is Kang Whittaker 12/17/2017 - 1.5mg (35) not following Vito Jeffers,[facility] 01/15/2018 TBPK taper Aspir-81 1 by mouth every 30tabs Kang Whittaker 12/17/2017 - 81mg Tablets DR christos Jeffers M.D.,[facility] 06/16/2018 Crestor take 1/2 tablet 45tabs Kang Whittaker 12/17/2017 - 5mg Tablets by mouth every Vito Jeffers,[facility] 06/16/2018 evening Metoprolol Succinate ER 1 by mouth every Unknown - day 01/15/2018 100mg Tablets ER 24HR Dexpak 10 Day pt reports he is Unknown - 1.5mg (35) not following 12/17/2017 TBPK taper Synthroid 1 by mouth every Unknown - 75mcg Tablets day with 88 mcg 05/26/2018 Novolog 11-12 units times Unknown - 100Unit/ML Solution per day prn 01/15/2018 Metoprolol Tartrate take 1 tablet by Unknown - 125mg mouth twice a day 01/23/2018 Tablets Cyclobenzaprine HCL take one tablet Unknown - 5mg by mouth every 8 06/16/2018 Tablets hours prn. (pt states he takes 4-5x qd) Baclofen 1 by mouth every Unknown - 5mg Tablets night at bedtime 06/16/2018 for dystonia Medications Administered in Office Medication SIG Qnty Indications Ordering Provider Date Depomedrol 40MG Martinez Xie MD 05/22/2018 Injection Depomedrol 40MG Martinez Xie MD 05/22/2018 Injection Celestone 3 mg and 3mg Martinez Xie MD 01/15/2018 Injection Celestone 3 mg and 3mg Martinez Xie MD 01/15/2018 Injection Immunizations CPT Code Status Date Vaccine Lot # [id number] Given 12/18/2017 Pneumococcal Conjugate Vaccine 13 Valent For Intramuscular Use 98667 Given 12/17/2017 Influenza Virus Vaccine, Quadrivalent, Split, [id number] Preservative Free Vital Signs Date Vital Result Comment 08/11/2018 12:55pm Height 67 inches 5'7" Weight 225.00 lb BP Systolic Sitting 110 mmHg BP Diastolic Sitting 78 mmHg Pain Level 10 BMI (Body Mass Index) 35.2 kg/m2 06/30/2018 1:17pm Heart Rate 88 /min BP [...] Result H/L Range Note Laboratory test 01/23/2018 [facility] In House Hemoglobin A1c 7.5 High 5-7 finding Lipid Profile 01/15/2018 [facility] Triglycerides 218 mg/dL 1 (Trig/Chol/HDL) [address] [place] [address] [phone] Cholesterol 166 mg/dL 2 HDL Cholesterol 32.3 mg/dL 3 LDL Cholesterol 90 mg/dL 4 Laboratory test 01/15/2018 [facility] TSH (Thyroid 1.53 mcIU/mL N 0.34-5.[address] Stim Horm) [place] [address] [phone] Comp Metabolic 01/15/2018 [facility] Sodium 138 mmol/L N 135- [address] [place] [address] [phone] Potassium 4.4 mmol/L N 3.5-5.0 Chloride 101 [...] Egfr 84.1 >60 5 Laboratory test 01/15/2018 [facility] Uric Acid 4.7 mg/dL N 4.4-7.6 [address] [place] [address] [phone] 1 Desirable: <150 Borderline High: 150-199 High: [...] dialysis) Procedures Date Code Description Status 05/27/2018 62907 Nerve Conduction 05-06 Studies Completed 05/27/2018 51267 Needle Electromyography Complete, Five Or More Muscles Completed Studied 05/22/201878175 Inject/Drain Joint/Bursa Major W/O US Completed 01/15/201887505 Inject/Drain Joint/Bursa Major W/O US Completed 12/04/2017 91042 ECHO Transthorasic Realtime 2D W Doppler & Color Flow Hosp Completed Encounters Type Date Location Provider Dx Diagnosis Office Visit 06/30/2018 [facility] Nhung Ibarra, L21.9 Seborrheic 1:00p [facility] dermatitis, unspecified B35.1 Tinea unguium E03.9 Hypothyroidism, unspecified Office Visit 06/26/2018 [facility] M47.896 Other 9:30a [facility] MD spondylosis, lumbar region M54.2 Cervicalgia R20.0 Anesthesia of skin Office Visit 06/16/2018 11:00a [facility] Nhung G47.00 Insomnia, [facility] DO Stacey unspecified E11.42 Type 2 diabetes mellitus with diabetic polyneuropathy J45.909 Unspecified asthma, uncomplicated G89.4 Chronic pain syndrome Office Visit 06/16/2018 9:00a [facility] Williams Arambula, G25.0 [facility] tremor G62.9 Polyneuropathy, unspecified Z86.73 Prsnl hx of TIA (TIA), and cereb infrc w/o resid deficits M47.896 Other spondylosis, lumbar region Office Visit 05/27/2018 11:40a [facility] Deven Magana G47.00 Insomnia , [facility] unspecified E11.42 Type 2 diabetes mellitus with diabetic polyneuropathy E78.5 Hyperlipidemia, unspecified M47.896 Other spondylosis, lumbar region G89.29 Other chronic pain I48.0 Paroxysmal atrial fibrillation J45.909 Unspecified asthma, uncomplicated Office Visit 04/28/2018 [facility] M47.896 Other 9:30a [facility] MD spondylosis, lumbar region M96.840 Postproc hematoma of a ms structure fol a ms sys procedure Office Visit 03/18/2018 [facility] Internal Tae Smith S06.4x0S Epidural hemorrhage 4:00p Day[facility] Gil[facility], sequela G89.29 Other chronic pain E11.42 Type 2 diabetes mellitus with diabetic polyneuropathy E03.9 Hypothyroidism, unspecified E78.5 Hyperlipidemia, unspecified Office Visit 01/23/2018 [facility] Internal Kang Whittaker S06.4x0S Epidural hemorrhage 2:00p Daya Jeffers M.D.,FACP without loss of [address] consciousness, sequela E11.65 Type 2 diabetes mellitus with hyperglycemia E78.5 Hyperlipidemia, unspecified E03.9 Hypothyroidism, unspecified G47.00 Insomnia, unspecified I48.0 Paroxysmal atrial fibrillation Office Visit 01/15/2018 [facility] Martinez M 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 [place] knee Office Visit 12/17/2017 [facility] Internal Kang Whittaker S06.4x0D Epidural hemorrhage 12:00p Medicine Eliezer Jeffers, w/o loss of Rd Vito,FACP consciousness, subs encntr Z86.73 Prsnl hx of TIA (TIA), and cereb infrc w/o resid deficits E78.5 Hyperlipidemia, unspecified Z23 Encounter for immunization Office Visit 12/05/2017 [facility] Williams Arambula, G45.9 Transient 7:00a Clinic cerebral ischemic attack, unspecified I10 Essential (primary) hypertension I48.91 Unspecified atrial fibrillation E78.5 Hyperlipidemia, unspecified Office Visit 12/05/2017 12:51p [facility] Deven Magana, R29.810 Facial weakness Assoc,ella [...] w/o resid deficits Office Visit 12/03/2017 [facility] Travis Becerra G45.9 Transient 12:50p Assoc,ella HERNANDEZ M.D. cerebral Hospitalists ischemic attack, unspecified Z79.4 [facility] (current) use of insulin E11.65 Type 2 diabetes mellitus with hyperglycemia Z86.73 Prsnl hx of TIA (TIA), and cereb infrc w/o resid deficits Plan of Treatment Future Appointment(s):09/18/2018 2:00 pm - Wally You MD at [facility]03/26/2019 9:20 am - Tae Gilman M.D. at [facility] Internal [place]43/14/2019 - Wally You, MDM47.896 Other spondylosis , lumbar regionNew Xrays:MRI Thoracic Spine W/O, Ordered: 08/11/18Follow up:RV in 1 month. Please remind patient to bring CD with MRI of cervical spine images.I62.00 Nontraumatic subdural hemorrhage, unspecifiedNew Xrays:CT Brain Wo , Ordered: 08/11/18G89.29 Other chronic pain
== END 2018-09-02 10:23 | disposition home or self-care (01) ==
LOC: ED 09:17
DX: M10.9 Gout, unspecified (principal); E11.9 Type 2 diabetes mellitus without complications; Z87.891 Personal history of nicotine dependence; Z88.8 Allergy status to other drugs, medicaments and biological substances; I48.91 Unspecified atrial fibrillation; M19.90 Unspecified osteoarthritis, unspecified site
CPT/HCPCS: 99281; J1885

== ENCOUNTER 2018-12-25 12:30 | Emergency (ER) | payer MEDICARE ==
--- NOTE | 2018-12-25 13:16 | ED ---
Back Pain - HPI Summary HPI Summary: 83 year old M presenting to [facility] complains of lower back pain which is chronic but has worsened over the past couple days. Denies fever, chills, bowel or bladder symptoms. Hx chronic left leg weakness after epidural hematoma and chronic left great toe pain. In the last 2-3 weeks, patient developed redness on his left great toe. Yesterday, patient developed drainage from left great toe. Patient presents to the ED today because he is concerned about his left great toe where he has hx gout, and now has some drainage near the left great toe nail which he trimmed and to which he applied nystatin. Patient additionally reports abrasion to his left medial knee. The patient rates the back pain 8/10 in severity. Symptoms aggravated by nothing. Symptoms alleviated by toradol and decadron. Patient is requesting antibiotics, specifically doxycycline for the left great toe, Decadron and Toradol for his back pain which has worked in the past. Patient has had similar symptoms in the past. - History of Current Complaint Chief Complaint: EDBackInjuryPain Stated Complaint: TOE AND BACK PAIN PER PT Time Seen by Provider: 12/25/18 13:08 Hx Obtained From: Patient Onset/Duration: Lasting Days, Still Present Onset/Duration: Started Days Ago, Still Present Timing: Constant Severity Currently: Severe Pain Intensity: 8 Pain Scale Used: 0-10 Numeric Aggravating Symptom(s): Nothing Alleviating Symptom(s): Nothing Associated Signs And Symptoms: Positive: Negative - fever, chills, bowel or bladder symptoms, Other - left great toe pain, redness, and drainage - Allergies/Home Medications Allergies/Adverse Reactions: Allergies Allergy/AdvReac Type Severity Reaction Status Date / Time Adhesive Tape Allergy Rash Verified 12/25/18 12:36 [place] And Derivatives Allergy Rash Verified 12/25/18 12:36 insulin glargine Allergy Swelling Verified 12/25/18 12:36 apixaban [From Eliquis] AdvReac bleed from Verified 12/25/18 12:36 the bones iodine AdvReac "thyroid Verified 12/25/18 12:36 storm" PMH/Surg Hx/FS Hx/Imm Hx Endocrine/Hematology History: Reports: Hx Diabetes - CONTROLLED Cardiovascular History: Reports: Hx Atrial Fibrillation Denies: Hx Hypertension, Hx Pacemaker/ICD Respiratory History: Denies: Hx Asthma Musculoskeletal History: Reports: Hx Arthritis - osteoarthritis, Hx Back Problems, Hx Gout, Other Musculoskeletal History - spinal stenosis Sensory History: Reports: Hx Contacts or Glasses Opthamlomology History: Reports: Hx Contacts or Glasses Neurological History: Reports: Hx CVA, Hx Headaches, Other Neuro Impairments/ Disorders - states "blood clot in his spine" - Surgical History Surgery Procedure, Year, and Place: L4-L5 spine surgery. C3-C4 fusion. C6-C7 fusion. CARDIAC ABLATION. BOWEL RESECTION & SEVERAL ABDOMINAL SURGERIES FOR DIVERTICULITIS. NASAL SEPTUM. HERNIA REPAIRS. CATARACTS. CARPAL TUNNEL. TONSILLECTOMY. APPENDECTOMY. BUNIONECTOMY - Immunization History Immunizations Up to Date: Yes Infectious Disease History: No Infectious Disease History: Denies: Traveled Outside the [place] in Last 30 Days - Family History Known Family History: Positive: Diabetes - Social History Alcohol Use: None Hx Substance Use: No Substance Use Type: Reports: None Hx Tobacco Use: Yes Smoking Status (MU): Former Smoker Review of Systems Negative: Fever, Chills Gastrointestinal: Negative - bowel symptoms Positive: no symptoms reported Positive: Other - lower back pain, left great toe pain, redness, and drainage Positive: Other - abrasion to his left medial knee All Other Systems Reviewed And Are Negative: Yes Physical Exam - Summary Physical Exam Summary: Constitutional: Well-developed, Well-nourished, Alert. (-) Distressed Skin: Warm, Dry, Abrasion to his left medial knee, erythema L great toe HENT: Normocephalic; Atraumatic Eyes: Conjunctiva normal Neck: Musculoskeletal ROM normal neck. (-) JVD, (-) Stridor, (-) Nuchal rigidity Cardio: Rhythm regular, rate normal, Heart sounds normal; Intact distal pulses; Radial pulses are 2+ and symmetric. (-) Murmur Pulmonary/Chest wall: Effort normal. (-) Respiratory distress, (-) Wheezes, (-) Rales Abd: Soft, (-) tenderness, (-) Distension, (-) Guarding, (-) Rebound Musculoskeletal: 2+ DP pulse of the left foot, mild erythema of left great toe, hallux valgus deformity of the left great toe, tenderness in the lumbar area, chronic weakness of LLE Lymph: (-) Cervical adenopathy Neuro: Alert, Oriented x3, chronic dec sensation to LLE Psych: Mood and affect Normal Triage Information Reviewed: Yes Vital Signs On Initial Exam: Initial Vitals Temp Pulse Resp BP Pulse Ox 97.8 F 80 20 112/60 96 12/25/18 12:31 12/25/18 12:31 12/25/18 12:31 12/25/18 12:31 12/25/18 12:31 Vital Signs Reviewed: Yes Diagnostics - Vital Signs Vital Signs Temp Pulse Resp BP Pulse Ox 12/25/18 12:31 97.8 F 80 20 112/60 96 - Laboratory Lab Statement: Any lab studies that have been ordered have been reviewed, and results considered in the medical decision making process. - Radiology Left toe x-ray Radiology Interpretation Completed By: Radiologist Summary of Radiographic Findings: POSTSURGICAL CHANGE. NO ACUTE OSSEOUS INJURY. IF SYMPTOMS PERSIST, RECOMMEND REPEAT IMAGING. ED physician has reviewed this report. Re-Evaluation - Re-Evaluation First Eval Change: Improved Comment: XR neg, pain improved. Back Pain Course/Dx - Course Course Of Treatment: 83-year-old male with a history of L4-5 spinal surgery, C3- 4, C6-7 fusion, L, diabetes presents with chronic back pain in the left great toe pain. No red flags symptoms, left great toe with mild erythema which patient states chronic secondary to gout, concerned about drainage near the nail , although unable to express any today. check an x-ray, lower suspicion for osteomyelitis however patient is high-risk given diabetes. Patient aware he will need MRI for further workup if he has continued pain. Patient requesting doxycycline for cellulitis of toe, states is the only medication he can take w his heart medications. We'll give Decadron 4 mg 1 here for pain as well as Toradol. Patient states that worked in the past. - Diagnoses Provider Diagnoses: Back pain, Cellulitis Discharge ED - Sign-Out/Discharge Documenting (check all that apply): Patient Departure - Discharge Patient Received Moderate/Deep Sedation with Procedure: No - Discharge Plan Condition: Stable Disposition: HOME Prescriptions: DOXYcycline CAP(*) [DOXYcycline 100MG CAP(*)] 100 mg PO BID 7 Days #14 cap Patient Education Materials: Cellulitis (ED), Chronic Back Pain (DC) Referrals: Nhung Ibarra DO [Primary Care Provider] - 2 Days Additional Instructions: You were seen in the emergency department for toe and back pain. Your foot Xray showed no acute abnormalities. Please take doxycycline twice per day for 7 days for your toe. If any studies were not completed at the time of discharge you will be called with the relevant results. Please follow up with your primary care doctor in next 2-3 days and return to emergency department for worsening pain, fevers, new weakness/numbness, bowel or bladder incontinence or concerning symptoms. It was a pleasure taking care of you today. - Billing Disposition and Condition Condition: STABLE Disposition: Home - Attestation Statements Document Initiated by Alessandro: Yes Documenting Scribe: Jo Ann Birch Provider For Whom Alessandro is Documenting (Include Credential): Leena Deng MD Scribe Attestation: IJo Ann, scribed for Leena Deng MD on 12/25/18 at 1454. Scribe Documentation Reviewed: Yes Provider Attestation: The documentation as recorded by the Jo Ann ventura accurately reflects the service I personally performed and the decisions made by me, Leena Deng MD Status of Scribe Document: Viewed
[2018-12-25] MEDS ORDERED: Ketorolac INJ* 30 MG/ML 1 ML VIAL IM ONE (13:25)
[2018-12-25] MEDS ORDERED: Dexamethasone TAB* 4 MG PO ONE (13:30)
[2018-12-25 14:52] VITALS: BP 129/81
== END 2018-12-25 14:40 | disposition home or self-care (01) ==
LOC: ED 12:30
DX: M54.9 Dorsalgia, unspecified (principal); L03.032 Cellulitis of left toe; E11.9 Type 2 diabetes mellitus without complications; I48.91 Unspecified atrial fibrillation; Z88.8 Allergy status to other drugs, medicaments and biological substances; Z86.73 Personal history of transient ischemic attack (TIA), and cerebral infarction without residual deficits; Z91.041 Radiographic dye allergy status; Z87.891 Personal history of nicotine dependence; Z79.899 Other long term (current) drug therapy
CPT/HCPCS: 96372; 99282; J1885; J8540

== ENCOUNTER 2019-04-13 04:00 | Observation (INO) | payer MEDICARE ==
[2019-04-13 05:04] LABS: Hematocrit 39 % (42-52); Hemoglobin 13.1 g/dL (14.0-18.0); Mean Corpuscular HGB Conc 34 g/dL (31-36); Mean Corpuscular Hemoglobin 30 pg (27-31); Mean Corpuscular Volume 91 fL (80-94); Mean Platelet Volume 8.3 fL (7.4-10.4); Platelet Count 130 10^3/uL (150-450); Red Blood Count 4.32 10^6 /uL (4.18-5.48); Red Cell Distribution Width 13 % (10-15); White Blood Count 5.2 10^3/uL (3.5-10.8)
[2019-04-13 05:13] LABS: INR 1.03 (0.82-1.09)
[2019-04-13 05:18] LABS: Albumin 3.5 g/dL (3.2-5.2); Calcium 8.6 mg/dL (8.6-10.3); Potassium 4.3 mmol/L (3.5-5.0); Total Bilirubin 0.3 mg/dL (0.2-1.0)
[2019-04-13 05:19] LABS: ABS Eosinophils 0.1 10^3/ul (0-0.6); ABS Monocytes 0.4 10^3/ul (0-0.8); ABS Neutrophils 2.7 10^3/ul (1.5-7.7); Lymphocyte % 38.6 %; Nucleated Red Blood Cells % 0.1
--- NOTE | 2019-04-13 05:23 | ED ---
Abdominal Pain/Male - HPI Summary HPI Summary: Patient is an 84 y/o M presenting to the ED for a chief complaint of abdominal pain near the umbilicus. Patient also complains of nausea, vomiting, decreased food intake, fever, diarrhea, nightmares, and recurring headaches since July 2018. He notes vomiting after every meal for the last 3 months. On triage, he rates his abdominal pain as 10/10 in severity. Any aggravating or alleviating factors are denied. He believes that he may have pancreatitis. Patient saw Dr. Tiburcio Tirado for his headaches with unremarkable findings. Patient reports a prior admission to [facility]. PMHx is significant for CVA, atrial fibrillation, HLD , HTN, DM, and diverticulitis. PSHx is significant for colon resection, hernia repair, and C3/C4 surgery. Allergies noted. - History of Current Complaint Chief Complaint: EDHeadache Stated Complaint: HEADACHE PER PT Time Seen by Provider: 04/13/19 04:27 Hx Obtained From: Patient Onset/Duration: Sudden Onset, Lasting Weeks, Still Present Timing: Intermittent Severity Initially: Severe Severity Currently: Severe Pain Intensity: 10 Pain Scale Used: 0-10 Numeric Location: Umbilical Radiates: No Aggravating Factor(s): Nothing Alleviating Factor(s): Nothing Associated Signs And Symptoms: Positive: Fever, Nausea, Vomiting, Diarrhea, Other - Positive decreased food intake - Allergies/Home Medications Allergies/Adverse Reactions: Allergies Allergy/AdvReac Type Severity Reaction Status Date / Time Adhesive Tape Allergy Rash Verified 04/13/19 04:04 [place] And Derivatives Allergy Rash Verified 04/13/19 04:04 insulin glargine Allergy Swelling Verified 04/13/19 04:04 apixaban [From Eliquis] AdvReac bleed from Verified 04/13/19 04:04 the bones iodine AdvReac "thyroid Verified 04/13/19 04:04 storm" Home Medications: Home Medications Atenolol [Tenormin] 50 mg PO BID 04/13/19 [History Confirmed 04/13/19] Methocarbamol 750 mg PO DAILY 04/13/19 [History Confirmed 04/13/19] Zolpidem Tartrate 5 mg PO BEDTIME 04/13/19 [History Confirmed 04/13/19] PMH/Surg Hx/FS Hx/Imm Hx Previously Healthy: Yes Endocrine/Hematology History: Reports: Hx Diabetes - CONTROLLED Cardiovascular History: Reports: Hx Atrial Fibrillation, Hx Hypercholesterolemia , Hx Hypertension Denies: Hx Pacemaker/ICD Respiratory History: Denies: Hx Asthma GI History: Reports: Other GI Disorders - Diverticulitis History: Denies: Hx Renal Disease Musculoskeletal History: Reports: Hx Arthritis - osteoarthritis, Hx Back Problems, Hx Gout, Other Musculoskeletal History - spinal stenosis Sensory History: Reports: Hx Contacts or Glasses Denies: Hx Legally Blind, Hx Deafness Opthamlomology History: Reports: Hx Contacts or Glasses Denies: Hx Legally Blind EENT History: Denies: Hx Deafness Neurological History: Reports: Hx CVA, Hx Headaches, Other Neuro Impairments/ Disorders - states "blood clot in his spine" Psychiatric History: Denies: Hx Eating Disorder, Hx Panic Disorder - Surgical History Surgical History: Yes Surgery Procedure, Year, and Place: L4-L5 spine surgery. C3-C4 fusion. C6-C7 fusion. CARDIAC ABLATION. BOWEL RESECTION & SEVERAL ABDOMINAL SURGERIES FOR DIVERTICULITIS. NASAL SEPTUM. HERNIA REPAIRS. CATARACTS. CARPAL TUNNEL. TONSILLECTOMY. APPENDECTOMY. BUNIONECTOMY Infectious Disease History: No Infectious Disease History: Denies: Traveled Outside the [place] in Last 30 Days - Family History Known Family History: Positive: Diabetes - Social History Occupation: Retired Alcohol Use: None Hx Substance Use: Yes Substance Use Type: Reports: Prescribed Hx Tobacco Use: Yes Smoking Status (MU): Former Smoker Review of Systems - ROS Summary Review of Systems Summary: Allopurinol TAB* [Zyloprim 300 MG TAB*] 300 mg PO DAILY 08/22/16 [History Confirmed 04/13/19] Dofetilide CAP* [Tikosyn CAP*] 500 mcg PO BID 08/22/16 [History Confirmed ] oxyCODONE TAB* [Roxycodone TAB 5 mg*] 5 mg PO TID 08/22/16 [History Confirmed ] Ciclopirox Olamine [Ciclopirox] 0.77 % TOPICAL DAILY PRN 07/23/18 [History Confirmed 04/13/19] Diphenoxylat/Atrop 2.5-0.025M* [Lomotil TAB*] 1 tab PO QID PRN 07/23/18 [ History Confirmed 04/13/19] Dulaglutide (NF) [Trulicity (NF)] 1.5 mg SUBCUT WEEKLY 07/23/18 [History Confirmed 04/13/19] Gabapentin CAP(*) [Neurontin 300 CAP(*)] 600 mg PO TID 07/23/18 [History Confirmed 04/13/19] Levothyroxine TAB* [Synthroid TAB*] 137 mcg PO DAILY 07/23/18 [History Confirmed 04/13/19] [place]-3/Dha/Epa/Fish Oil [Fish Oil] 500 mg PO BID 07/23/18 [History Confirmed ] Salicylic Acid [Selsun Blue] 1 applic TOPICAL DAILY 07/23/18 [History Confirmed 04/13/19] Tamsulosin CAP* [Flomax CAP*] 0.8 mg PO DAILY 07/23/18 [History Confirmed ] Atenolol [Tenormin] 50 mg PO BID 04/13/19 [History Confirmed 04/13/19] Methocarbamol 750 mg PO DAILY 04/13/19 [History Confirmed 04/13/19] Zolpidem Tartrate 5 mg PO BEDTIME 04/13/19 [History Confirmed 04/13/19] Positive: Fever, Other - Positive decreased food intake Positive: Abdominal Pain - Near the umbilicus, Vomiting, Diarrhea, Nausea Positive: Headache Psychological: Other - Positive nightmares All Other Systems Reviewed And Are Negative: Yes Physical Exam - Summary Physical Exam Summary: General: Well-developed, Well-nourished elderly MALE. No acute distress. HEENT: Normocephalic, Atraumatic. Eyes: Conjuctiva normal, PERRL. Oropharynx: Clear, mucous membranes moist, (-) exudates. Neck: Soft, FROM, (-) lymphadenopathy, (-) thyromegaly, (-) JVD. Cardiovascular: Normal sinus rhythm, (-) murmur. Lungs: Clear to auscultation bilaterally (-) wheezes, (-) rales, (-) rhonchi. Abdomen: Soft, non-distended, (-) organomegaly, normal bowel sounds. Mild upper abdominal tenderness. Back: (-) CVA tenderness Extremities: No edema. Skin: Warm, dry, (-) rash. Neuro: Alert and oriented x3, no focal deficits. Psychiatric: Mood normal, affect normal. Triage Information Reviewed: Yes Vital Signs On Initial Exam: Initial Vitals Temp Pulse Resp BP Pulse Ox 98.1 F 74 20 152/77 99 04/13/19 04:01 04/13/19 04:01 04/13/19 04:01 04/13/19 04:01 04/13/19 04:01 Vital Signs Reviewed: Yes - Demetrio Coma Scale Best Eye Response: 4 - Spontaneous Best Motor Response: 6 - Obeys Commands Best Verbal Response: 5 - Oriented Coma Scale Total: 15 Procedures - Sedation Patient Received Moderate/Deep Sedation with Procedure: No Diagnostics - Vital Signs Vital Signs Temp Pulse Resp BP Pulse Ox 04/13/19 04:14 76 99 04/13/19 04:13 76 148/89 99 04/13/19 04:01 98.1 F 74 20 152/77 99 - Laboratory Lab Results: Lab Results 04/13/19 04/13/19 Range/Units 04:54 04:54 WBC 5.2 (3.5-10.8) 10^3/uL RBC 4.32 (4.18-5.48) 10^6 /uL Hgb 13.1 L (14.0-18.0) g/dL Hct 39 L (42-52) % MCV 91 (80-94) fL MCH 30 (27-31) pg MCHC 34 (31-36) g/dL RDW 13 (10-15) % Plt Count 130 L (150-450) 10^3/uL MPV 8.3 (7.4-10.4) fL Neut % (Auto) Pending Lymph % (Auto) Pending Jerauld % (Auto) Pending Eos % (Auto) Pending Baso % (Auto) Pending Absolute Neuts (auto) Pending Absolute Lymphs (auto) Pending Absolute Monos (auto) Pending Absolute Eos (auto) Pending Absolute Basos (auto) Pending Absolute Nucleated RBC Pending Nucleated RBC % Pending INR (Anticoag Therapy) 1.03 (0.82-1.09) Result Diagrams: 04/13/19 04:54 04/13/19 04:54 Lab Statement: Any lab studies that have been ordered have been reviewed, and results considered in the medical decision making process. - CT Brain CT CT Interpretation Completed By: Radiologist Summary of CT Findings: Brain CT IMPRESSION: There is an acute on chronic appearing right-sided subdural hematoma measuring approximately 5 mm in widest diameter. Findings are stable in size when compared with the prior study however there has been interval slight increase in density. Question trace left sided pleural effusion. Reviewed by Dr. Seth. Abdominal Pain Male Course/Dx - Course Course Of Treatment: 84 year old male presents with headache and abd pain, vomiting for 3 months. he has a history of subdural hematoma. patient is insistent that he has pancreatitis. vague historian. retired pharmacist. patient is ordered for ct head and abd/pelvis. physical exam demonstrates mild upper abdominal tenderness. labs without any significant abnormality. ct head returns wiht acute on chronic subdural. patient signed out at change of shift awaiting neuro consult and disposition. - Diagnoses Provider Diagnoses: Headache, Subdural hemorrhage Discharge ED - Sign-Out/Discharge Documenting (check all that apply): Sign-Out Patient Signing out patient TO: Leena Deng - Patient is a sign-out at 07:00 on 04/13/[address] Radha Seth MD to Dr. Leena Deng MD at shift change, pending imaging results, further workup, and disposition. - Discharge Plan Condition: Stable Disposition: ADMITTED TO [facility] - Billing Disposition and Condition Condition: STABLE Disposition: Admitted to [facility] - Attestation Statements Document Initiated by Alessandro: Yes Documenting Scribe: Milli Lion Provider For Whom Scribe is Documenting (Include Credential): Radha Seth MD Scribe Attestation: Milli Romero, scribed for Radha Seth MD on 04/13/19 at 2125. Scribe Documentation Reviewed: Yes Provider Attestation: The documentation as recorded by the Milli ventura accurately reflects the service I personally performed and the decisions made by me, Radha Seth MD Status of Scribe Document: Viewed
[2019-04-13 05:24] LABS: Albumin/Globulin Ratio 1.4 (1-3); BUN/Creatinine Ratio 18.9 (8-20); EGFR African American 91.8 (>60); EGFR Non-African American 75.9 (>60); Globulin 2.5 g/dL (2-4)
--- NOTE | 2019-04-13 07:21 | ED ---
Progress - Progress Note Progress Note: This pt is a sign out to Dr. Deng from Dr. Seth at shift change 0700 04/[address] A/P, urine cultures, and disposition. - Results/Orders Results/Orders: CT A/P: 1. The prostate is enlarged measuring across a 6.6 CM. 2. There are soft tissue cystic structures noted in the umbilicus measuring up to 1.9 CM with rim calcifications. 3. Atelectasis versus consolidation noted at the left lung base. ED physician has reviewed this report. Cervical Spine X-Ray: 1. OSTEOPENIA. 2. DEGENERATIVE DISC DISEASE AND OSTEOARTHRITIS 3. STATUS POST SPINAL FUSION. ED physician has reviewed this report. Brain MRI: BILATERAL SUBACUTE APPEARING FRONTOPARIETAL SUBDURAL HEMATOMAS MEASURING UP TO 0.5 CM. THERE IS NO SHIFT. ED physician has reviewed this report. Course/Dx - Course Course Of Treatment: This pt is a sign out to Dr. Deng from Dr. Seth at shift change 0700 04/13/[address] A/P, urine cultures, and disposition. - Diagnoses Provider Diagnoses: Headache, Subdural hemorrhage - Provider Notifications Discussed Care Of Patient With: Wally You Time Discussed With Above Provider: 12:48 Instructed by Provider To: Admit As Inpatient - Dr. You, neurosurgery, states that the pt should receive a repeat Head CT after [address] Given keppra 1,000 mg. Admit/Transition Orders Completed By ED Provider: Yes Discharge ED - Sign-Out/Discharge Documenting (check all that apply): Patient Departure - admitted - Discharge Plan Condition: Stable Disposition: ADMITTED TO [facility] Referrals: Nhung Ibarra DO [Primary Care Provider] - - Billing Disposition and Condition Condition: STABLE Disposition: Admitted to [facility] - Attestation Statements Document Initiated by Scribe: Yes Documenting Scribe: Khanh Hagan Provider For Whom Alessandro is Documenting (Include Credential): Leena Deng MD Scribe Attestation: Khanh Romero scribed for Leena Deng MD on 04/13/19 at 1356. Scribe Documentation Reviewed: Yes Provider Attestation: The documentation as recorded by the scribe, Khanh Bentley accurately reflects the service I personally performed and the decisions made by me, Leena Deng MD Status of Scribe Document: Viewed Consult Consult: Dr. You, neurosurgery, was consulted at 0751 and recommends consulting with the radiologist to discuss the posibility of an MRI. At 0812 Dr. Berg, radiologist, recommends an MRI without contrast.
[2019-04-13] MEDS ORDERED: Dofetilide CAP* 500 MCG PO ONE (10:17)
[2019-04-13] MEDS ORDERED: levETIRAcetam TAB* 500 MG PO ONE (12:48)
[2019-04-13] MEDS ORDERED: Acetaminophen TAB* 325 MG PO PRN (14:34)
[2019-04-13] MEDS ORDERED: CICLOPIROX OLAMINE TOPICAL PRN (14:36)
[2019-04-13] MEDS ORDERED: Diphenoxylat/Atrop 2.5-0.025M* 1 TAB PO PRN (14:36)
[2019-04-13] MEDS ORDERED: Dulaglutide (NF) 0.75 MG/0.5 ML SYRINGE SUBCUT SCH (15:00)
--- NOTE | 2019-04-13 16:38 | HP ---
CC: Dr. Magana; Dr. Arambula; Dr. You * HISTORY AND PHYSICAL: DATE OF ADMISSION: 04/13/19 PRIMARY CARE PROVIDER: Dr. Magana. OTHER PROVIDERS: Dr. Arambula, Dr. You. ATTENDING PHYSICIAN: Dr. Coronado * (dictated by LUISA Cloud). CHIEF COMPLAINT: "Head burning." HISTORY OF PRESENT ILLNESS: Mr. John is an 84-year-old male with past medical history of hypertension; hyperlipidemia; paroxysmal atrial fibrillation , not on anticoagulation due to history of epidural hematoma after epidural; and diabetes, who presented to the ER today with complaints of a burning sensation around the head. He notes that this encompasses the entire head. He reports that this began yesterday morning while he was showering. He has blurred vision and diplopia, although notes that he has had this since July without change. He has daily headaches since July 2018 also for which he follows with Dr. Arambula. He does have a history of subdural hematoma as well as a history of epidural hematoma. At the time of his epidural hematoma, he was on blood thinners, Coumadin, which were stopped after the development of hematoma. He denies weakness, dysphagia, although he does complain of occasional difficulty with finding words, but notes that this is occasional. He complains of vomiting/regurgitation for the last 3 to 4 months. He notes that every time he eats this occurs; sometimes he will vomit 2 to 3 hours after a meal; sometimes he will attempt to swallow, but feels that the food gets stuck his throat causing a regurgitation. He also reports nightmares over the last 1 month. The patient reports no traumatic injury, no recent fall, and no hit to the head. He reports no loss of consciousness or head or neck injury. In the ER, the patient received a full workup including laboratory data revealing a mild anemia, mild thrombocytopenia, and a mildly elevated glucose. A CT of the brain shows right subdural hematoma, which is stable, but slightly increased in density. C-spine x-ray was without acute abnormality. CT of the abdomen and pelvis shows enlarged prostate, left lower lobe atelectasis versus consolidation, and soft tissue cystic structure in the right umbilicus area. Brain MRI shows bilateral subacute frontoparietal subdural hematoma without shift. The hospitalist team was asked to evaluate the patient for admission. PAST MEDICAL HISTORY: 1. Hypertension. 2. Hyperlipidemia. 3. Atrial fibrillation, not on anticoagulation due to history of epidural hematoma. 4. Diabetes mellitus, [id number]. 5. Hypothyroidism. 6. History of CVA. 7. Gout. 8. BPH. 9. Headache, diplopia. 10. History of diverticulitis, status post colectomy. PAST SURGICAL HISTORY: C3-C7 fusion, bilateral carpal tunnel, multiple abdominal hernias (3 to 4), colon resection, bunionectomy. HOME MEDICATIONS: 1. Allopurinol 300 mg p.o. daily. 2. Atenolol 50 mg p.o. b.i.d. 3. Ciclopirox olamine 0.77% topically daily p.r.n. 4. Lomotil 1 tab p.o. 4 times daily p.r.n. 5. Dofetilide 500 mcg p.o. b.i.d. 6. Dulaglutide 1.5 mg subcu weekly. 7. Gabapentin 600 mg p.o. t.i.d. 8. Levothyroxine 137 mcg p.o. daily. 9. Methocarbamol 750 mg p.o. daily. 10. [place]-3/fish oil 500 mg p.o. b.i.d. 11. Oxycodone 5 mg p.o. t.i.d. 12. Salicylic acid 1 application topically daily. 13. Tamsulosin 0.8 mg p.o. daily. 14. Zolpidem tartrate 5 mg p.o. at bedtime. DRUG ALLERGIES: ADHESIVE TAPE, CITRUS/DERIVATIVES, GLARGINE, APIXABAN, IODINE. FAMILY HISTORY: Mother from CVA at 73. Father from CVA at 84 and had associated heart disease. Grandparents all had heart disease. No family history of bleeding disorder, diabetes, or cancer. SOCIAL HISTORY: The patient quit smoking approximately 20 years ago. Prior to that, he smoked 12 cigars per day for approximately 40 years. He does not use alcohol or nonprescription medications. He is a retired pharmacist. He is , with 2 children. He lives with his . He declines to appoint a healthcare proxy at this time. REVIEW OF SYSTEMS: A 14-point review of systems has been performed and all the pertinent positives and negatives are in the HPI. All other systems are negative. PHYSICAL EXAMINATION GENERAL: Mr. John is a well-developed, well-nourished, 84-year-old man, who is sitting up in bed. He appears to be in no acute distress. He is pleasant, cooperative, talkative, breathing comfortably on room air. HEENT: Head is normocephalic and atraumatic. PERRL. EOMI. Visual l[place] are grossly intact. Sclerae are nonicteric with exudates. Hearing is grossly intact. Oral mucous membranes are moist. There are no lesions. The pharynx is clear. The tongue is at midline. Palate elevates symmetrically. PULMONARY: Symmetrical chest expansion without use of accessory muscles. Clear to auscultation bilaterally without rhonchi, wheeze, or rales. CARDIOVASCULAR: Regular rate and rhythm with S1, S2 present without murmurs, rubs, clicks, or gallops. There is no JVD or peripheral edema. Radial and pedal pulses are palpable. ABDOMEN: There is a midline surgical scar. Bowel sounds in all quadrants. Abdomen is soft. There is no tenderness to palpation. MUSCULOSKELETAL: Full range of motion without pain or deformities. NEURO: The patient is awake. He is alert and oriented x3. Cranial nerves II through XII are grossly intact. He is able to move all of his extremities with a motor strength of 5/5 bilaterally in the upper and lower extremities. 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 DIAGNOSTIC STUDIES/LAB DATA: CBC: WBC 5.2, hemoglobin 13.1, hematocrit 39, platelets 130. CMP: Sodium 137, potassium 4.3, chloride 105, carbon dioxide 28 , BUN 18, creatinine 0.98, glucose 128, lactic acid 1.4. 1. CT brain, impression: There is an acute on chronic appearing right-sided subdural hematoma measuring approximately 5 mm in widest diameter. Findings are stable in size when compared with the prior study; however, there has been interval slight increase in density. Questionable trace left-sided pleural effusion. 2. Cervical spine x-ray, impression: Osteopenia, degenerative disk disease, and osteoarthritis, status post spinal fusion. 3. CT abdomen and pelvis, impression: The prostate is enlarged measuring across 6.6 cm. There are soft tissue cystic structures noted in the umbilicus measuring up to 1.9 cm with rim calcifications. Atelectasis versus consolidation noted at the left lung base. 4. MRI brain without contrast, impression: Bilateral subacute-appearing frontoparietal subdural hematomas measuring up to 0.5 cm. There is no shift. ASSESSMENT AND PLAN: Mr. John is an 84-year-old male with past medical history of hypertension; hyperlipidemia; atrial fibrillation, not on anticoagulation; diabetes mellitus, who presented to the ER today with complaints of "head burning" and was found to have a bilateral subacute frontoparietal subdural hematoma without shift on imaging. The patient will be admitted for: 1. Subdural hematoma. CT of the brain shows acute on chronic right subdural hematoma. Brain MRI shows bilateral subacute frontoparietal subdural hematoma without shift. The patient will be admitted with neuro checks q.[address] You has been consulted and recommended CT of the brain in the morning. The patient will also receive a coagulation workup. He will also receive 7 days of seizure prophylaxis with Keppra. 2. Blurred vision/diplopia. The patient complains of blurred vision and diplopia as well as daily headaches since July 2018. He follows with Dr. Arambula for this. We will consult Neurology for further recommendations. 3. Regurgitation/vomiting. Abdomen and pelvis CT was relatively benign. The patient reports symptoms of vomiting/regurgitation and has associated globus sensation and what appears to be difficulty with swallowing. He will receive a swallow eval. Also, this will be mentioned to Neurology to see if they have recommendations. 4. Hypertension. Continue home medication, atenolol. 5. Hyperlipidemia. The patient does not appear to be on any medications. 6. Atrial fibrillation. Continue dofetilide and atenolol. The patient is not on anticoagulation. 7. Diabetes mellitus. Continue dulaglutide weekly. 8. Hypothyroidism. Continue levothyroxine. 9. Gout. Continue allopurinol. 10. Benign prostatic hypertrophy. Continue tamsulosin. 11. DVT prophylaxis: Chemoprophylaxis will be held at this time in the setting of subdural hematoma. The patient has been started on SCDs. 12. Code status: Full code. TIME SPENT: Approximately 60 minutes was spent on this admission, greater than half that time was spent [id number] with the patient obtaining history, performing physical, and reviewing the plan of care. The case has been reviewed with my attending, Dr. Coronado, who is in agreement with the plan of care. PAUL FALCON, LUISA [id number]/[facility] #: [id number] LEONEL
[2019-04-13] MEDS ORDERED: Atenolol TAB* 50 MG PO SCH (21:00)
[2019-04-13] MEDS ORDERED: Dofetilide CAP* 500 MCG PO SCH (21:00)
[2019-04-13] MEDS: OMEGA PO SCH (21:42)
[2019-04-13] MEDS: EPA PO SCH (21:42)
[2019-04-13] MEDS: DHA PO SCH (21:42)
[2019-04-13] MEDS: FISH OIL PO SCH (21:42)
[2019-04-13] MEDS: Gabapentin CAP(*) 300 MG PO SCH (21:52)
[2019-04-13] MEDS: oxyCODONE TAB* 5 MG TAB PO SCH (21:52)
[2019-04-13] MEDS: levETIRAcetam TAB* 500 MG PO SCH (21:53)
[2019-04-14] MEDS: Dofetilide CAP* 500 MCG PO SCH ×2 (00:03→12:41)
--- NOTE | 2019-04-14 04:28 | CONS ---
CONSULTATION REPORT: DATE OF CONSULT: 04/13/19 HISTORY OF PRESENT ILLNESS: The patient is a very pleasant 84-year-old gentleman with a past medical history significant for hypertension, hyperlipidemia, paroxysmal atrial fibrillation, history of spinal epidural hematoma after epidural injection, diabetes not on anticoagulation who presented to the emergency room with complaints of headache. The patient reports that he has been having chronic headaches but he has been having increased headaches the last 2 days. The patient denies any nausea or vomiting. He reports that he he did get a small dose of Mobic, nonsteroidal antiinflammatory medication yesterday as well as vitamin E. The patient was followed by Dr. Tirado for his headaches and he is known to our office with chronic complaints of back pain. The patient denies any nausea or vomiting at this point. He did have vomiting for the last 3 to 4 months as reported in patient's chart. The patient denies any weakness, numbness or tingling of his extremities. He is a brilliant ambulator at his baseline. He denies any urinary or GI incontinence. The patient had CT scan in the emergency room that revealed a very small right frontal subdural hematoma that was similar in size with the previous CT scan and there was a suspicion of increased intensity although bone averaging artifact might play a role. The patient had MRI of his brain that revealed small bilateral subacute and chronic subdural hematomas versus subdural hygromas. In my review without evidence of midline shift. The patient was again admitted by Internal Medicine for further evaluation. PAST MEDICAL HISTORY: History of hypertension, hyperlipidemia, atrial fibrillation, diabetes, hypothyroidism, history of CVA, gout, diplopia, and diverticulitis status post colectomy. PAST SURGICAL HISTORY: C3 to C7 fusion, bilateral carpal tunnel, multiple abdominal hernias, colon resection and bunionectomy. HOME MEDICATIONS: The patient was takin. Allopurinol. 2. Atenolol. 3. Lomotil. 4. Dofetilide. 5. Dulaglutide. 6. Gabapentin. 7. Levothyroxine. 8. Methocarbamol. 9. Melrose 3 fish oil. 10. Oxycodone. 11. Salicylic acid. 12. Tamsulosin. 13. Zolpidem. ALLERGIES: The patient is allergic to ADHESIVE TAPE, CITRUS DERIVATIVES, GLARGINE, APIXABAN, and IODINE. FAMILY HISTORY: The patient's mother from CVA at the age of 73. Father from CVA at the age of 84, had also heart disease. SOCIAL HISTORY: The patient is not smoking. He quit smoking 20 years ago. Alcohol negative. Recreational drug use negative. The patient is retired pharmacist. He is and lives with his . They have 2 children. PHYSICAL EXAM: The patient is not in acute distress. He is awake, alert and oriented x3. His pupils are equal and reactive. Cranial nerves II through XII are grossly intact. Motor 4 to 5/5 in the all extremities. No pronator drift. Sensory, grossly intact to light touch. Deep tendon deep tendon reflexes +1 bilaterally. No clonus, no Babinski. Walker is negative. Straight leg raise negative in sitting position. He says he has no pain. The patient has no tenderness to palpation in the cervical, thoracic or lumbar spine. He has free range of motion of the cervical spine. DIAGNOSTIC STUDIES/LAB DATA: The patient did get CT scan of the brain that revealed right sided small subdural collection, similar size on previous CT scan and was almost 5 mm in diameter without mass effect. There is some increase in the density of the subdural collection, although volume averaging artifact may play a role in my opinion. The patient had x-ray of his cervical spine that did not reveal any evidence of fracture or subluxation. The patient had a cervical spine CT scan, does not reveal any evidence of fracture or subluxation. The patient had CT scan of the abdomen that did not reveal any evidence of fracture of the lumbar spine or subluxation. ASSESSMENT: This is a very pleasant 84-year-old gentleman with complaints of headaches with MRI findings consistent with possible bilateral subacute and chronic small subdural hematomas. PLAN: The patient at this point has been admitted to the hospital by the hospitalist service. We recommend seizure prophylaxis for [address] scan in the morning. We will also recommend checking for coagulopathy , the patient's platelet count is 130. Thank you for allowing us to participate in the care of this patient. Please do not hesitate to contact our office in case you have any further questions or concerns regarding the care of this patient. [id number]/[facility] #: [id number] LEONEL
[2019-04-14] MEDS ORDERED: Levothyroxine TAB* 137 MCG TAB PO SCH (06:00)
[2019-04-14 06:23] LABS: ABS Eosinophils 0.1 10^3/ul (0-0.6); ABS Lymphocytes 2.4 10^3/ul (1.0-4.8); ABS Monocytes 0.5 10^3/ul (0-0.8); ABS Neutrophils 2.8 10^3/ul (1.5-7.7); Eosinophil % 1.1 %; Hematocrit 40 % (42-52); Hemoglobin 13.6 g/dL (14.0-18.0); Lymphocyte % 41.7 %; Mean Corpuscular HGB Conc 34 g/dL (31-36); Mean Corpuscular Hemoglobin 30 pg (27-31); Mean Corpuscular Volume 89 fL (80-94); Mean Platelet Volume 8.5 fL (7.4-10.4); Nucleated Red Blood Cells % 0.1; Platelet Count 129 10^3/uL (150-450); Red Blood Count 4.52 10^6 /uL (4.18-5.48); Red Cell Distribution Width 13 % (10-15); White Blood Count 5.8 10^3/uL (3.5-10.8)
[2019-04-14] MEDS ORDERED: Allopurinol TAB* 300 MG PO SCH (09:00)
[2019-04-14] MEDS ORDERED: Tamsulosin CAP* 0.4 MG PO SCH (09:00)
[2019-04-14] MEDS: EPA PO SCH (09:25)
[2019-04-14] MEDS: FISH OIL PO SCH (09:25)
[2019-04-14] MEDS: DHA PO SCH (09:25)
[2019-04-14] MEDS: OMEGA PO SCH (09:25)
[2019-04-14] MEDS: oxyCODONE TAB* 5 MG TAB PO SCH ×2 (09:30→09:36)
[2019-04-14] MEDS: Gabapentin CAP(*) 300 MG PO SCH (09:31)
[2019-04-14] MEDS: levETIRAcetam TAB* 500 MG PO SCH (09:31)
[2019-04-14] MEDS ORDERED: Dextrose 50% VIAL 50 ml IV PUSH PRN (09:44)
[2019-04-14] MEDS ORDERED: Insulin LISPRO* 1 UNITS UNIT SUBCUT ONE (09:44)
[2019-04-14 12:52] VITALS: BP 93/57
[2019-04-14] MEDS ORDERED: Atenolol TAB* 50 MG PO SCH (21:00)
--- NOTE | 2019-04-14 21:35 | DS ---
CC: Deven Magana MD; Dr. You * DISCHARGE SUMMARY: DATE OF ADMISSION: 04/13/19 DATE OF DISCHARGE: 04/14/19 PRIMARY CARE PROVIDER: Deven Magana MD PRIMARY DIAGNOSIS: Subdural hematoma. SECONDARY DIAGNOSES: 1. Diabetes, on insulin. 2. Hypertension. 3. Atrial fibrillation, not on anticoagulation due to history of epidural hematoma. 4. Hypothyroidism. 5. History of stroke. 6. Gout. 7. Benign prostatic hyperplasia. 8. Osteoarthritis, on opioids. CONSULTS: Dr. You of Neurosurgery. DISCHARGE MEDICATIONS: 1. Keppra 500 mg twice a day for 6 more days. 2. Atenolol 50 mg at bedtime. 3. Humalog sliding scale. 4. Allopurinol 300 mg daily. 5. Lomotil 1 tab 4 times a day as needed. 6. Tikosyn 500 mcg twice a day. 7. Oxycodone 5 mg 3 times a day. 8. Methocarbamol 750 mg daily as needed for muscle spasm. 9. Dulaglutide 1.5 mg subcutaneously weekly. 10. Gabapentin 600 mg t.i.d. 11. Levothyroxine 137 mcg daily. 12. Tamsulosin 0.8 mg daily. 13. Ambien 5 mg at bedtime. HISTORY OF PRESENT ILLNESS: Mr. John is an 84-year-old man with diabetes, on insulin; hypertension; paroxysmal AFib, not on anticoagulation due to history of epidural hematoma; who is presenting with complaints of a burning sensation around his head. He notes that the burning sensation encompasses his entire head. It began yesterday morning while he was showering. The patient reports that he has had blurred vision with double vision since July of last year , so far approximately 8 months. Also since that time, he has had daily headaches and follows with Dr. Arambula of Neurology. The patient reports a history of subdural hematoma and also an epidural hematoma. He reports that the epidural hematoma happened in the context of him being on blood thinners for atrial fibrillation. The patient is denying focal weakness, dysphagia. The patient reports that for 3 to 4 months he has had intermittent vomiting and regurgitation and he has been following with his primary care physician for this. HOSPITAL COURSE: In the emergency room, the patient had basic labs which showed mild anemia to 3.6 which is just below the patient's baseline as well as mild thrombocytopenia, which the patient has had in the past, although his most recent platelets were normal. A CT of the brain showed a right subdural hematoma which is stable. A C-spine x-ray was without acute abnormality. A brain MRI showed bilateral subacute frontoparietal subdural hematomas without shift. The hospitalist team was asked to admit the patient with neurosurgical consult. Dr. You of Neurosurgery saw the patient and recommended seizure prophylaxis with Keppra for 7 days with a repeat CT the following morning. This brain CT was performed on morning of discharge and showed a small subdural hematoma which was stable from prior studies. Dr. You recommended discharge with repeat CT scan 4 weeks after discharge with followup in Neurosurgery [facility]. Of note throughout hospitalization, the patient had many healthcare demands. He wanted to be tested for vitamin E levels. He wanted an oncology consult. He accused nursing of being "poison." His outpatient provider was contacted and reports that this is the patient's baseline and that he frequently has grandiose ideas and is difficult to interrupt. He was updated on the patient's case and plan of care and the patient will continue to follow with him in outpatient setting. The patient also reports that he has outpatient followup with Dr. Marvin Waldron, Dr. Sam Martin, and Hematology. As the patient has had a chronic issue with weakness as well as chronic pain from osteoarthritis, it was recommended that he pursue physical therapy in the outpatient setting and he was referred for this. He was also seen and evaluated by our physical therapist here. The patient was able to negotiate 2 flights of stairs independently using handrails. No further skilled PT services were required, so the patient was discharged home. REVIEW OF SYSTEMS: A 10-point review of systems was performed and significant for the patient's chronic arthritic pain. The patient did deny headache, nausea , vomiting, focal weakness, blurry vision, or double vision. Otherwise, 10- point review of systems was negative. PHYSICAL EXAMINATION: Afebrile, heart rate 72, blood pressure 93/64, oxygen saturation 98% on room air, respiratory rate 16. In general, he is a chronically ill-appearing elderly man who is in no acute distress. He speaks in full sentences without increased work of breathing. Neck: No JVD. Full range of motion intact. Able to touch chin to chest. Lungs: Clear to auscultation bilaterally. Heart: Regular rate and rhythm. No murmurs, gallops , or rubs. Abdomen: Soft, nontender, nondistended. Extremities: Warm and well perfused without evidence of edema. Neuro: A and O x3. CN II through XII intact. No slurred speech. No word finding difficulty. Strength 5/5 in upper and lower extremities. Psych: Poor insight. Speech fluent and tangential with occasional flight of ideas, makes good eye contact and is pleasant. PERTINENT STUDIES AND LABS: CBC with hemoglobin 13.6 with MCV 89 and platelets 130. INR and PTT within normal limits with fibrinogen 377. BMP unremarkable. LFTs notable for a mildly low protein to 6.0. Brain CT on admission with an acute on chronic appearing right-sided subdural hematoma measuring approximately 5 mm in widest diameter. Findings are stable in size when compared to prior study; however, there has been interval slight increase in density, question trace left-sided pleural effusion. Brain CT on day of discharge with small subdural hematoma adjacent to the right frontal and parietal lobes, unchanged from study from yesterday, with small subdural hematoma adjacent to the left frontal and parietal lobes seen on the prior MRI studies not visualized. Brain MRI is with bilateral subacute appearing frontoparietal subdural hematomas measuring up to 0.5 cm. There is no shift. CT of the cervical spine with degenerative disk disease and osteoarthritis, status post spinal fusion. There is multilevel neural foraminal narrowing as described above. There is no significant osseous canal stenosis. Abdomen and pelvis CT with prostate enlarged measuring across as 6.6 cm. There are soft tissue cystic structures noted in the umbilicus measuring up to 1.9 cm with rim calcifications. Atelectasis versus consolidation noted at the left lung base. DISCHARGE PLAN: The patient is to be discharged home with home physical therapy referral. For chronic subdural hematomas, he was referred to follow up in Neurosurgery Clinic in 4 weeks and was ordered for a repeat brain CT before that appointment. The patient will be continued on 6 more days of seizure prophylaxis with Keppra 500 mg twice a day. He can continue to follow up with Dr. Deven Magana and Dr. Sam Martin for ongoing diabetes management. He was encouraged to eat a low carbohydrate diet with goal weight loss for better blood glucose control and to improve his degenerative osteoarthritis of his joints. His other significant medication change was decrease of atenolol from 50 mg twice a day to 50 mg once a day given transiently low blood pressure in the hospital, although the patient was asymptomatic at these times. The patient was given return precautions which include but are not limited to worsening headache or worsening nausea and vomiting or new focal neuro deficits. DISPOSITION: Home. CONDITION: Improved. TIME SPENT: Approximately 60 minutes was spent on discharge of this patient, more than half of which was spent with care coordination at bedside for interview and exam. [id number]/[facility] #: [id number] LEONEL
== END 2019-04-14 14:15 | disposition home or self-care (01) ==
LOC: ED 04:00 → MEDTELE 14:34
PROVIDERS: ADMIT Internal Medicine; ATTEND Internal Medicine
DX: I62.00 Nontraumatic subdural hemorrhage, unspecified (principal); I10 Essential (primary) hypertension; E11.9 Type 2 diabetes mellitus without complications; I48.91 Unspecified atrial fibrillation; E03.9 Hypothyroidism, unspecified; M10.9 Gout, unspecified; N40.0 Benign prostatic hyperplasia without lower urinary tract symptoms; M19.90 Unspecified osteoarthritis, unspecified site; R10.9 Unspecified abdominal pain; R50.9 Fever, unspecified; Z79.899 Other long term (current) drug therapy; Z79.4 Long term (current) use of insulin; Z79.01 Long term (current) use of anticoagulants; Z86.73 Personal history of transient ischemic attack (TIA), and cerebral infarction without residual deficits
CPT/HCPCS: 36415; 70450; 70551; 72040; 72125; 74176; 80053; 83605; 85025; 85384; 85610; 85670; 85730; 93005; 99285; A9270-GY; G0378